=== PATIENT | female | born 1960 | race Caucasian/White ===

== ENCOUNTER 2021-05-25 14:49 | Inpatient (IN) | payer SELFPAY ==
[~2021-05-25] VITALS: Ht 162.6 cm; Wt 58.9 kg
[2021-05-25] MEDS ORDERED: ONDANSETRON PF 4 MG/2 ML VIAL. IVP ONE (15:00)
[2021-05-25] MEDS ORDERED: IV NORMAL SALINE 250ML 500 ML IV ONE (15:00)
[2021-05-25] MEDS ORDERED: MORPHINE SULFATE 2 MG/ML INJ. IVP ONE ×2 (15:00→15:45)
[2021-05-25 15:26] LABS: BASO # 0.1 x10^3/uL (0.0-0.2); BASO % 1 % (0-3); EOS # 0.3 x10^3/uL (0.0-0.7); EOS % 4 % (0-3); HEMATOCRIT 27.7 % (36.0-47.0); HEMOGLOBIN 8.5 g/dL (12.0-15.5); LYMPH # 2.6 x10^3/uL (1.0-4.8); LYMPH % 34 % (24-48); MEAN CORPUSCULAR HEMOGLOBIN 21 pg (25-35); MEAN CORPUSCULAR HGB CONC 31 g/dL (31-37); MEAN CORPUSCULAR VOLUME 69 fL (79-100); MONO # 0.5 x10^3/uL (0.0-1.1); MONO % 7 % (0-9); NEUT # 4.1 x10^3/uL (1.8-7.7); NEUT % 55 % (31-73); PLATELET COUNT 475 x10^3/uL (140-400); RED BLOOD COUNT 4.01 x10^6/uL (3.50-5.40); RED CELL DISTRIBUTION WIDTH 19.7 % (11.5-14.5); WHITE BLOOD COUNT 7.5 x10^3/uL (4.0-11.0)
[2021-05-25] MEDS ORDERED: IOHEXOL 300 MG/ML 100ML VIAL. IV ONE (15:30)
[2021-05-25 15:34] LABS: CALCIUM 9.1 mg/dL (8.5-10.1); GFR 56.7; POTASSIUM 4.3 mmol/L (3.5-5.1)
[2021-05-25 15:38] LABS: CLARITY,URINE CLEAR; COLOR,URINE YELLOW
[2021-05-25 15:39] LABS: BILIRUBIN,URINE NEGATIVE (NEG)
[2021-05-25 15:40] LABS: ALBUMIN 3.6 g/dL (3.4-5.0); ALBUMIN/GLOBULIN RATIO 0.9 (1.0-1.7); MAGNESIUM 2.1 mg/dL (1.8-2.4); TOTAL BILIRUBIN 0.1 mg/dL (0.2-1.0); TOTAL PROTEIN 7.6 g/dL (6.4-8.2)
[2021-05-25 15:40] LABS: BACTERIA,URINE FEW /HPF (0-FEW); NITRITE,URINE NEGATIVE (NEG); PROTEIN,URINE TRACE mg/dL (NEG-TRACE); RBC,URINE OCC /HPF (0-2); UROBILINOGEN,URINE 0.2 mg/dL (0.2 mg/dL)
[2021-05-25 15:41] LABS: HYALINE CASTS, URINE FEW /HPF
[2021-05-25 15:45] LABS: INFLUENZA A PATIENT NEGATIVE (NEGATIVE); INFLUENZA B PATIENT NEGATIVE (NEGATIVE)
[2021-05-25] MEDS ORDERED: CONTRAST GIVEN. MC PRN (15:45)
[2021-05-25] MEDS ORDERED: KETOROLAC 15 MG/ML VIAL. IM ONE (16:00)
[2021-05-25] MEDS ORDERED: ORPHENADRINE CITRATE 60 MG/2 ML VIAL. IM ONE (16:00)
--- NOTE | 2021-05-25 16:23 | RAD ---
CT OF THE ABDOMEN AND PELVIS WITH IV CONTRAST. History: Reason: back pain Comparison:None. Procedure: Contiguous axial images of the abdomen and pelvis were performed after the administration of 60 cc o f Omnipaque 300 IV contrast. Oral contrast: No. Findings: There is grade 2 anterolisthesis of L4 on L5 and L5 on S1. There is mild loss of stature of the L2 an d L3 vertebral bodies due to impaction of the superior endplates. The appendix is not well seen but appears normal. The gallbladder appears normal. The rectal fault is distended with air and stool. Liver: Unremarkable Spleen: Unremarkable Pancreas: Unremarkable Adrenal Glands: Unremarkable Kidneys: Small cyst on the left There is no mass or lymphadenopathy. There is no free air. There is no free fluid. The urinary bladder appears normal. Impression: 1. L2 and L3 vertebral compression fractures of uncertain age. 2. Grade 2 anterolisthesis of L4 on L5 and L5 on S1. 3. The rectal vault is distended with air and stool however the remaining colon appears normal. End Impression PQRS Compliance Statement: One or more of the following individualized dose reduction techniques were utilized for this examinat ion: 1. Automated exposure control 2. Adjustment of the mA and/or kV according to patient size 3. Use of iterative reconstruction technique Electronically signed by: Robinson Huizar III, MD (05/25/2021 4:20 PM) [facility]
[2021-05-25] MEDS ORDERED: KETOROLAC 15 MG/ML VIAL. IVP ONE (16:30)
--- NOTE | 2021-05-25 17:25 | PHYS DOC ---
Past Medical History Additional Past Medical Histor: LOWER BACK PAIN Past Surgical History: No Surgical History Smoking Status: Current Every Day Smoker Alcohol Use: Heavy Additional Information: DAILY 2 CANS [place] Adult General Chief Complaint Chief Complaint: ALTERED MENTAL STATUS HPI HPI Patient is a 60 year old female who presents with back pain. Pain has been present all day. Patient is extremely uncomfortable and comes in by ambulance. She denies any recent fall or injury. She has had problems with her back off and on in the past. She describes as a sharp pain in the center of her spine as well as in the right and left paraspinal musculature of the lower spine, no numbness or weakness in the legs though she does have some tingling. No fever, no definitive bladder incontinence, no bowel incontinence, chest pain or shortness of breath. There was some question as to whether or not she had an episode of bladder incontinence at home earlier in the day. Review of Systems Review of Systems Constitutional: Denies fever Eyes: Denies change in visual acuity or eye pain HENT: Denies sore throat Respiratory: Denies shortness of breath Cardiovascular: Denies chest pain GI: Denies abd pain : Denies dysuria Musculoskeletal: Denies back or extremity injury Integument: Denies rash or skin lesions Neurologic: Denies headache, focal weakness or sensory changes All other systems were reviewed and found to be within normal limits, except as documented in this note. Current Medications Current Medications Current Medications Medications (Trade) Dose Ordered Sig/Rony Start Time Stop Time Status Last Admin Dose Admin Info (CONTRAST GIVEN -- Rx MONITORING) 1 each PRN DAILY PRN 05/25/21 15:45 05/27/21 15:44 Iohexol (Omnipaque 300 Mg/ml) 75 ml 1X ONCE 05/25/21 15:30 05/25/21 15:34 DC 05/25/21 15:30 60 ML Ketorolac Tromethamine (Toradol 15mg Vial) 15 mg 1X ONCE 05/25/21 16:30 05/25/21 16:31 DC Morphine Sulfate (Morphine Sulfate) 2 mg 1X ONCE 05/25/21 15:45 05/25/21 15:46 DC 05/25/21 15:40 2 MG Ondansetron HCl (Zofran) 4 mg 1X ONCE 05/25/21 15:00 05/25/21 15:02 DC 05/25/21 15:10 4 MG Orphenadrine Citrate (Norflex) 60 mg 1X ONCE 05/25/21 16:00 05/25/21 16:01 DC 05/25/21 16:21 60 MG Sodium Chloride 500 ml @ 250 mls/hr 1X ONCE 05/25/21 15:00 05/25/21 16:59 DC 05/25/21 15:00 250 MLS/HR Allergies Allergies Allergies Coded Allergies Type Severity Reaction Last Updated Verified No Known Drug Allergies 05/25/21 No Physical Exam Physical Exam Constitutional: Well developed, well nourished, no acute distress, non-toxic appearance. HENT: Normocephalic, atraumatic, bilateral external ears normal, mucosa moist, nose normal. Eyes: EOMI, conjunctiva normal, no discharge. Neck: Normal range of motion, supple, no stridor, no meningeal signs. Cardiovascular: Regular rate and rhythm Lungs & Thorax: Bilateral breath sounds clear to auscultation Abdomen: Soft, no tenderness or obvious masses Skin: Warm, dry, no erythema, no rash. Extremities: No tenderness, no cyanosis, no clubbing, ROM intact, no edema. Back: Patient has quite a bit of tenderness present over the entire lumbar spine both midline and the paraspinal musculature bilaterally. No external evidence of trauma, no erythema or swelling. Neurologic: Alert and oriented, normal motor function, normal sensory function, no focal deficits noted. Psychologic: Affect normal, judgement normal, mood normal. Current Patient Data Vital Signs Vital Signs Date Time Temp Pulse Resp B/P (MAP) Pulse Ox O2 Delivery O2 Flow Rate FiO2 05/25/21 15:10 18 93 05/25/21 14:53 97.5 107 120/75 (90) Room Air 97.5 Lab Values Laboratory Tests Test 05/25/21 14:55 05/25/21 14:56 05/25/21 15:10 05/25/21 15:16 Glucose (Fingerstick) 166 mg/dL (70-99) H White Blood Count 7.5 x10^3/uL (4.0-11.0) Red Blood Count 4.01 x10^6/uL (3.50-5.40) Hemoglobin 8.5 g/dL (12.0-15.5) L Hematocrit 27.7 % (36.0-47.0) L Mean Corpuscular Volume 69 fL (79-100) L Mean Corpuscular Hemoglobin 21 pg (25-35) L Mean Corpuscular Hemoglobin Concent 31 g/dL (31-37) Red Cell Distribution Width 19.7 % (11.5-14.5) H Platelet Count 475 x10^3/uL (140-400) H Neutrophils (%) (Auto) 55 % (31-73) Lymphocytes (%) (Auto) 34 % (24-48) Monocytes (%) (Auto) 7 % (0-9) Eosinophils (%) (Auto) 4 % (0-3) H Basophils (%) (Auto) 1 % (0-3) Neutrophils # (Auto) 4.1 x10^3/uL (1.8-7.7) Lymphocytes # (Auto) 2.6 x10^3/uL (1.0-4.8) Monocytes # (Auto) 0.5 x10^3/uL (0.0-1.1) Eosinophils # (Auto) 0.3 x10^3/uL (0.0-0.7) Basophils # (Auto) 0.1 x10^3/uL (0.0-0.2) Platelet Estimate Pending Sodium Level 140 mmol/L (136-145) Potassium Level 4.3 mmol/L (3.5-5.1) Chloride Level 101 mmol/L (98-107) Carbon Dioxide Level 25 mmol/L (21-32) Anion Gap 14 (6-14) Blood Urea Nitrogen 13 mg/dL (7-20) Creatinine 1.0 mg/dL (0.6-1.0) Estimated GFR (Cockcroft-Gault) 56.7 BUN/Creatinine Ratio 13 (6-20) Glucose Level 153 mg/dL (70-99) H Lactic Acid Level 6.0 mmol/L (0.4-2.0) *H Calcium Level 9.1 mg/dL (8.5-10.1) Magnesium Level 2.1 mg/dL (1.8-2.4) Total Bilirubin 0.1 mg/dL (0.2-1.0) L Aspartate Amino Transferase (AST) 17 U/L (15-37) Alanine Aminotransferase (ALT) 19 U/L (14-59) Alkaline Phosphatase 96 U/L (46-116) Total Protein 7.6 g/dL (6.4-8.2) Albumin 3.6 g/dL (3.4-5.0) Albumin/Globulin Ratio 0.9 (1.0-1.7) L Lipase 90 U/L (73-393) Urine Collection Type U cath Urine Color Yellow Urine Clarity Clear Urine pH 6.0 (<5.0-8.0) Urine Specific [place] >=1.030 (1.000-1.030) Urine Protein Trace mg/dL (NEG-TRACE) Urine Glucose (UA) Negative mg/dL (NEG) Urine Ketones (Stick) Negative mg/dL (NEG) Urine Blood Negative (NEG) Urine Nitrite Negative (NEG) Urine Bilirubin Negative (NEG) Urine Urobilinogen Dipstick 0.2 mg/dL (0.2 mg/dL) Urine Leukocyte Esterase Negative (NEG) Urine RBC Occ /HPF (0-2) Urine WBC 1-4 /HPF (0-4) Urine Squamous Epithelial Cells Mod /LPF Urine Bacteria Few /HPF (0-FEW) Urine Hyaline Casts Few /HPF Urine Mucus Mod /LPF Influenza Type A Antigen Negative (NEGATIVE) Influenza Type B Antigen Negative (NEGATIVE) SARS-CoV-2 Antigen (Rapid) Negative (NEGATIVE) Laboratory Tests 05/25/21 14:56 Laboratory Tests 05/25/21 14:56 EKG EKG [] Radiology/Procedures Radiology/Procedures [] Impressions: PATIENT: RAUL COLLINSNACCOUNT: [id number]#: [id number] : 1960 LOCATION: ER AGE: 60 SEX: F EXAM STATUS: PRE ER ORD. PHYSICIAN: UTE GAY MD REASON: back pain PROCEDURE: CT ABD PELV W/ IV CONTRST ONLY CT OF THE ABDOMEN AND PELVIS WITH IV CONTRAST. History: Reason: back pain Comparison:None. Procedure: Contiguous axial images of the abdomen and pelvis were performed after the administration of 60 cc of Omnipaque 300 IV contrast. Oral contrast: No. Findings: There is grade 2 anterolisthesis of L4 on L5 and L5 on S1. There is mild loss of stature of the L2 and L3 vertebral bodies due to impaction of the superior endplates. The appendix is not well seen but appears normal. The gallbladder appears normal. The rectal fault is distended with air and stool. Liver: Unremarkable Spleen: Unremarkable Pancreas: Unremarkable Adrenal Glands: Unremarkable Kidneys: Small cyst on the left There is no mass or lymphadenopathy. There is no free air. There is no free fluid. The urinary bladder appears normal. Impression: 1. L2 and L3 vertebral compression fractures of uncertain age. 2. Grade 2 anterolisthesis of L4 on L5 and L5 on S1. 3. The rectal vault is distended with air and stool however the remaining colon appears normal. End Impression PQRS Compliance Statement: One or more of the following individualized dose reduction techniques were utilized for this examination: 1. Automated exposure control 2. Adjustment of the mA and/or kV according to patient size 3. Use of iterative reconstruction technique Electronically signed by: Clara Greenfield III, MD (05/25/2021 4:20 PM) [facility] DICTATED and SIGNED BY: CLARA GREENFIELD III, MD DATE: 05/25/21 [id number] 0 Course & Med Decision Making Course & Med Decision Making Pertinent Labs and Imaging studies reviewed. (See chart for details) [] This is a 60-year-old female who presents with severe back pain. CT of the abdomen and pelvis with reconstruction of the lumbar spine demonstrates a fracture of either the L2 or L3 vertebrae which is indeterminate age, compression fracture. She also has anterolisthesis of L4 on L5 and less p ronounced at L5-S1. Do not have any old imaging studies to compare to. On lab work patient's lactic acid is 6.0 and hemoglobin is 8.5. We will keep her in the hospital for further pain management and work-up as indicated, at this time she is in stable condition. Dragon Disclaimer Dragon Disclaimer This electronic medical record was generated, in whole or in part, using a voice recognition dictation system. Departure Departure Impression: Primary Impression: Intractable back pain Additional Impressions: Lactic acidosis Anemia Disposition: ADMITTED INPATIENT Condition: STABLE Problem Qualifiers UTE GAY MD May 25, 2021 17:25
[2021-05-25] MEDS ORDERED: ONDANSETRON PF 4 MG/2 ML VIAL. IVP PRN ×2 (17:30→20:30)
[2021-05-25] MEDS: fentaNYL PF VIAL 100 MCG/2 ML VIAL IVP PRN ×3 (19:08→23:05)
--- NOTE | 2021-05-25 20:09 | RAD ---
Exam: CT head INDICATION: Seizure TECHNIQUE: Sequential axial images through the head were obtained without the administration of IV co ntrast. Exposure: One or more of the following in the visualized dose reduction techniques were utilized for this examination: 1. Automated exposure control 2. Adjustment of the MA and/or KV according to patient size 3. Use of iterative of reconstructive technique Comparisons: None FINDINGS: No focal parenchymal lesion or hemorrhage is identified. There is no midline shift or sulcal effaceme nt. Mild patchy hypodensity in the periventricular white matter. No acute vascular territory infarction i s identified. Restrepo-white distinction is preserved. The ventricular system is within normal limits without compression hydrocephalus. The basal cisterns are well maintained. The visualized portions of the paranasal sinuses and mastoid air cells are well-pneumatized. No acute fractures. IMPRESSION: Mild small vessel ischemic change, technically age indeterminate without recent prior imaging. Electronically signed by: Rhiannon Bañuelos MD (05/25/2021 8:06 PM) [facility]
[2021-05-25 20:16] LABS: ANISOCYTOSIS SLIGHT; HYPOCHROMIA MOD; MICROCYTOSIS MOD; PLT ESTIMATE INCREASED (ADEQUATE); POLYCHROMASIA SLIGHT
[2021-05-25 20:17] LABS: TARGET CELLS OCC; TEAR DROP CELLS OCC
--- NOTE | 2021-05-25 20:27 | PDOC1 ---
History and Physical Date of Service: DOS: DATE: 05/25/21 TIME: 20:20 Chief Complaint: Chief Complain: Back pain History of Present Illness: HPI: Patient is a 60-year-old female presented with 1 day history of back pain. Says the pain was present when she awoke this morning and has not had any relief. Require transportation here by ambulance due to the amount of pain. No recent falls or trauma. Describes the pain in the mid lumbar section of her spine along with associated muscles. Denies any numbness in lower extremities. Denies any bowel or bladder incontinence however possibly some reported per emergency room. Past Medical/Surgical History: PMH/PSH: Additional Past Medical Histor: LOWER BACK PAIN Smoking Status: Current Every Day Smoker Alcohol Use: Heavy Additional Information: DAILY 2 CANS [place] Allergies: Allergies: Coded Allergies: No Known Drug Allergies (Unverified , 05/25/21) Family History: Family History: HTN Current Medications: Current Medications Current Medications Ondansetron HCl (Zofran) 4 mg 1X ONCE IVP Last administered on 05/25/21at 15:10; Start 05/25/21 at 15:00; Stop 05/25/21 at 15:02; Status DC Morphine Sulfate (Morphine Sulfate) 2 mg 1X ONCE IVP Last administered on 05/25/21at 15:10; Start 05/25/21 at 15:00; Stop 05/25/21 at 15:02; Status DC Sodium Chloride 500 ml @ 250 mls/hr 1X ONCE IV Last administered on 05/25/21at 15:00; Start 05/25/21 at 15:00; Stop 05/25/21 at 16:59; Status DC Iohexol (Omnipaque 300 Mg/ml) 75 ml 1X ONCE IV Last administered on 05/25/21at 15:30; Start 05/25/21 at 15:30; Stop 05/25/21 at 15:34; Status DC Morphine Sulfate (Morphine Sulfate) 2 mg 1X ONCE IVP Last administered on 05/25/21at 15:40; Start 05/25/21 at 15:45; Stop 05/25/21 at 15:46; Status DC Info (CONTRAST GIVEN -- Rx MONITORING) 1 each PRN DAILY PRN MC SEE COMMENTS; Start 05/25/21 at 15:45; Stop 05/27/21 at 15:44 Orphenadrine Citrate (Norflex) 60 mg 1X ONCE IM Last administered on 05/25/21at 16:21; Start 05/25/21 at 16:00; Stop 05/25/21 at 16:01; Status DC Ketorolac Tromethamine (Toradol 15mg Vial) 15 mg 1X ONCE IM Last administered on 05/25/21at 16:00; Start 05/25/21 at 16:00; Stop 05/25/21 at 16:20; Status DC Ketorolac Tromethamine (Toradol 15mg Vial) 15 mg 1X ONCE IVP ; Start 05/25/21 at 16:30; Stop 05/25/21 at 16:31; Status DC Ondansetron HCl (Zofran) 4 mg PRN Q8HRS PRN IVP NAUSEA/VOMITING Last administered on 05/25/21at 20:07; Start 05/25/21 at 17:30; Stop 05/26/21 at 17:29 Morphine Sulfate (Morphine Sulfate) 2 mg PRN Q2HR PRN IVP PAIN; Start 05/25/21 at 17:30; Stop 05/26/21 at 17:29 Fentanyl Citrate (Fentanyl 2ml Vial) 75 mcg PRN Q2HR PRN IVP PAIN Last administered on 05/25/21at 20:05; Start 05/25/21 at 18:45 ROS: Review of Systems Review of System Unless noted in HPI 14 point review of systems was negative Physical Exam: Vital Signs: Vital Signs Date Time Temp Pulse Resp B/P (MAP) Pulse Ox O2 Delivery O2 Flow Rate FiO2 05/25/21 20:05 16 98 2.0 05/25/21 18:07 104 160/82 (108) Room Air 05/25/21 14:53 97.5 97.5 Physcial Exam: GEN: Distress due to pain alert and oriented HEENT: Normal cephalic, atraumatic, external auditory canals are patent EYES: Extraocular muscles are intact, pupil are equally round and reactive to light and accommodation MUSCULOSKELETAL: Well developed , well nourishe ENDOCRINE: No thyromegaly was palpated LYMPHATICS: No cervical chain or axillary nodes were noted HEMATOPOIETIC: No bruising NECK: Supple, no JVD, no thyromegaly was noted LUNGS: Clear to auscultation in all lung boyle without rhonchi or wheezing HEART: RRR, S1, S2 present. Peripheral pulses intact, no obvious murmurs noted ABDOMEN: Soft, nontender. Positive bowel sounds, no organomegaly, normal bowel sounds EXTREMITIES: Without clubbing, cyanosis, or edema. Pedal pulses intact. Negative Homans sign NEUROLOGIC: Range of motion limited by pain PSYCHIATRIC: Normal affect, normal mood. Stable SKIN: No ulcerations or rashes, good skin turgor, no jaundice VASCULAR: Good capillary refill, neurovascular bundle appears to be intact Labs: Labs: Laboratory Tests Test 05/25/21 14:55 05/25/21 14:56 05/25/21 15:10 05/25/21 15:16 Glucose (Fingerstick) 166 mg/dL (70-99) White Blood Count 7.5 x10^3/uL (4.0-11.0) Red Blood Count 4.01 x10^6/uL (3.50-5.40) Hemoglobin 8.5 g/dL (12.0-15.5) Hematocrit 27.7 % (36.0-47.0) Mean Corpuscular Volume 69 fL (79-100) Mean Corpuscular Hemoglobin 21 pg (25-35) Mean Corpuscular Hemoglobin Concent 31 g/dL (31-37) Red Cell Distribution Width 19.7 % (11.5-14.5) Platelet Count 475 x10^3/uL (140-400) Neutrophils (%) (Auto) 55 % (31-73) Lymphocytes (%) (Auto) 34 % (24-48) Monocytes (%) (Auto) 7 % (0-9) Eosinophils (%) (Auto) 4 % (0-3) Basophils (%) (Auto) 1 % (0-3) Neutrophils # (Auto) 4.1 x10^3/uL (1.8-7.7) Lymphocytes # (Auto) 2.6 x10^3/uL (1.0-4.8) Monocytes # (Auto) 0.5 x10^3/uL (0.0-1.1) Eosinophils # (Auto) 0.3 x10^3/uL (0.0-0.7) Basophils # (Auto) 0.1 x10^3/uL (0.0-0.2) Platelet Estimate Increased (ADEQUATE) Polychromasia Slight Hypochromasia Mod Anisocytosis Slight Microcytosis Mod Target Cells Occ Tear Drop Cells Occ Sodium Level 140 mmol/L (136-145) Potassium Level 4.3 mmol/L (3.5-5.1) Chloride Level 101 mmol/L (98-107) Carbon Dioxide Level 25 mmol/L (21-32) Anion Gap 14 (6-14) Blood Urea Nitrogen 13 mg/dL (7-20) Creatinine 1.0 mg/dL (0.6-1.0) Estimated GFR (Cockcroft-Gault) 56.7 BUN/Creatinine Ratio 13 (6-20) Glucose Level 153 mg/dL (70-99) Lactic Acid Level 6.0 mmol/L (0.4-2.0) Calcium Level 9.1 mg/dL (8.5-10.1) Magnesium Level 2.1 mg/dL (1.8-2.4) Total Bilirubin 0.1 mg/dL (0.2-1.0) Aspartate Amino Transf (AST/SGOT) 17 U/L (15-37) Alanine Aminotransferase (ALT/SGPT) 19 U/L (14-59) Alkaline Phosphatase 96 U/L (46-116) Total Protein 7.6 g/dL (6.4-8.2) Albumin 3.6 g/dL (3.4-5.0) Albumin/Globulin Ratio 0.9 (1.0-1.7) Lipase 90 U/L (73-393) Urine Collection Type U cath Urine Color Yellow Urine Clarity Clear Urine pH 6.0 (<5.0-8.0) Urine Specific [place] >=1.030 (1.000-1.030) Urine Protein Trace mg/dL (NEG-TRACE) Urine Glucose (UA) Negative mg/dL (NEG) Urine Ketones (Stick) Negative mg/dL (NEG) Urine Blood Negative (NEG) Urine Nitrite Negative (NEG) Urine Bilirubin Negative (NEG) Urine Urobilinogen Dipstick 0.2 mg/dL (0.2 mg/dL) Urine Leukocyte Esterase Negative (NEG) Urine RBC Occ /HPF (0-2) Urine WBC 1-4 /HPF (0-4) Urine Squamous Epithelial Cells Mod /LPF Urine Bacteria Few /HPF (0-FEW) Urine Hyaline Casts Few /HPF Urine Mucus Mod /LPF Influenza Type A Antigen Negative (NEGATIVE) Influenza Type B Antigen Negative (NEGATIVE) SARS-CoV-2 Antigen (Rapid) Negative (NEGATIVE) Laboratory Tests Test 05/25/21 14:55 05/25/21 14:56 05/25/21 15:10 05/25/21 15:16 Glucose (Fingerstick) 166 mg/dL (70-99) White Blood Count 7.5 x10^3/uL (4.0-11.0) Red Blood Count 4.01 x10^6/uL (3.50-5.40) Hemoglobin 8.5 g/dL (12.0-15.5) Hematocrit 27.7 % (36.0-47.0) Mean Corpuscular Volume 69 fL (79-100) Mean Corpuscular Hemoglobin 21 pg (25-35) Mean Corpuscular Hemoglobin Concent 31 g/dL (31-37) Red Cell Distribution Width 19.7 % (11.5-14.5) Platelet Count 475 x10^3/uL (140-400) Neutrophils (%) (Auto) 55 % (31-73) Lymphocytes (%) (Auto) 34 % (24-48) Monocytes (%) (Auto) 7 % (0-9) Eosinophils (%) (Auto) 4 % (0-3) Basophils (%) (Auto) 1 % (0-3) Neutrophils # (Auto) 4.1 x10^3/uL (1.8-7.7) Lymphocytes # (Auto) 2.6 x10^3/uL (1.0-4.8) Monocytes # (Auto) 0.5 x10^3/uL (0.0-1.1) Eosinophils # (Auto) 0.3 x10^3/uL (0.0-0.7) Basophils # (Auto) 0.1 x10^3/uL (0.0-0.2) Platelet Estimate Increased (ADEQUATE) Polychromasia Slight Hypochromasia Mod Anisocytosis Slight Microcytosis Mod Target Cells Occ Tear Drop Cells Occ Sodium Level 140 mmol/L (136-145) Potassium Level 4.3 mmol/L (3.5-5.1) Chloride Level 101 mmol/L (98-107) Carbon Dioxide Level 25 mmol/L (21-32) Anion Gap 14 (6-14) Blood Urea Nitrogen 13 mg/dL (7-20) Creatinine 1.0 mg/dL (0.6-1.0) Estimated GFR (Cockcroft-Gault) 56.7 BUN/Creatinine Ratio 13 (6-20) Glucose Level 153 mg/dL (70-99) Lactic Acid Level 6.0 mmol/L (0.4-2.0) Calcium Level 9.1 mg/dL (8.5-10.1) Magnesium Level 2.1 mg/dL (1.8-2.4) Total Bilirubin 0.1 mg/dL (0.2-1.0) Aspartate Amino Transf (AST/SGOT) 17 U/L (15-37) Alanine Aminotransferase (ALT/SGPT) 19 U/L (14-59) Alkaline Phosphatase 96 U/L (46-116) Total Protein 7.6 g/dL (6.4-8.2) Albumin 3.6 g/dL (3.4-5.0) Albumin/Globulin Ratio 0.9 (1.0-1.7) Lipase 90 U/L (73-393) Urine Collection Type U cath Urine Color Yellow Urine Clarity Clear Urine pH 6.0 (<5.0-8.0) Urine Specific [place] >=1.030 (1.000-1.030) Urine Protein Trace mg/dL (NEG-TRACE) Urine Glucose (UA) Negative mg/dL (NEG) Urine Ketones (Stick) Negative mg/dL (NEG) Urine Blood Negative (NEG) Urine Nitrite Negative (NEG) Urine Bilirubin Negative (NEG) Urine Urobilinogen Dipstick 0.2 mg/dL (0.2 mg/dL) Urine Leukocyte Esterase Negative (NEG) Urine RBC Occ /HPF (0-2) Urine WBC 1-4 /HPF (0-4) Urine Squamous Epithelial Cells Mod /LPF Urine Bacteria Few /HPF (0-FEW) Urine Hyaline Casts Few /HPF Urine Mucus Mod /LPF Influenza Type A Antigen Negative (NEGATIVE) Influenza Type B Antigen Negative (NEGATIVE) SARS-CoV-2 Antigen (Rapid) Negative (NEGATIVE) Assessment/Plan Assessment/Plan Intractable back pain. Tobacco use alcohol abuse -1 day history worsening back pain. Requires ambulance transportation due to level of pain; reports ongoing issues with her back but really no specification by her -CT in emergency room showing compression fracture along with anterior listhesis -As needed pain control overnight. Says morphine was not helping emergency room will try fentanyl. As needed Flexeril -Consult to neurosurgery. Consult to PMR -PT OT -11 minutes tobacco cessation counseling -Monitor for any signs of alcohol withdrawal -Regular diet -DVT prophylaxis -Med rec Justifications for Admission Other Justification STEPH DEGROOT MD May 25, 2021 20:27
[2021-05-25 20:30] VITALS: BP 142/91
[2021-05-25] MEDS ORDERED: ACETAMINOPHEN 325 MG TABLET. PO PRN (20:30)
[2021-05-25] MEDS ORDERED: ELECTROLYTE (NON-ICU) PROTOCOL. MC PRN (20:30)
[2021-05-25] MEDS ORDERED: CALCIUM CARBONATE 500 MG TAB.CHEW PO PRN (20:30)
[2021-05-25] MEDS: SENNOSIDES/DOCUSATE 8.6/50MG TABLET. PO SCH (21:50)
[2021-05-25] MEDS: ZOLPIDEM 5 MG TABLET. PO PRN (21:52)
[2021-05-25] MEDS: CYCLOBENZAPRINE 10 MG TABLET. PO PRN (21:59)
[2021-05-25] MEDS: MORPHINE SULFATE 2 MG/ML INJ. IVP PRN (22:08)
[2021-05-25] MEDS: HEPARIN for SUB-Q USE 5,000 UNIT/ML VIAL. SQ SCH (22:08)
[2021-05-25 23:00] VITALS: BP 154/80
[2021-05-26 03:00] VITALS: BP 130/74
[2021-05-26] MEDS: CYCLOBENZAPRINE 10 MG TABLET. PO PRN ×2 (05:51→20:12)
[2021-05-26] MEDS: MORPHINE SULFATE 2 MG/ML INJ. IVP PRN ×2 (05:56→14:23)
[2021-05-26] MEDS: HEPARIN for SUB-Q USE 5,000 UNIT/ML VIAL. SQ SCH ×3 (05:57→21:37)
[2021-05-26 07:15] VITALS: BP 119/71
[2021-05-26] MEDS ORDERED: FLU VACC QUAD 21-22 (6MOS+) PF 0.5 ML SYRINGE. VAX IM ONE (09:00)
[2021-05-26] MEDS: fentaNYL PF VIAL 100 MCG/2 ML VIAL IVP PRN ×2 (09:02→20:16)
[2021-05-26] MEDS: SENNOSIDES/DOCUSATE 8.6/50MG TABLET. PO SCH ×2 (09:06→20:12)
[2021-05-26 11:06] VITALS: BP 122/70
[2021-05-26] MEDS ORDERED: POLYETHYLENE GLYCOL 3350 17 GM PACKET. PO SCH (11:30)
--- NOTE | 2021-05-26 11:54 | NUR ---
SW following. Discussed with RN, pt from home with , room air, regular diet, rapid COVID-19 negative. Pt refusing to get out of bed. MRI ordered. Med Assist following for self pay status. SW will continue to follow.
--- NOTE | 2021-05-26 12:00 | PDOC ---
[employer] PROGRESS NOTE Date of Service DOS: DATE: 05/26/21 TIME: 11:20 Chief Complaint Chief Complaint Intractable back pain L2 and L3 vertebral compression fractures of uncertain age. Grade 2 anterolisthesis of L4 on L5 and L5 on S1. Constipation - rectal vault distended with air and stool however the remaining colon appears normal. Smoker Anemia Lactic acidosis Hyperglycemia History of Present Illness History of Present Illness Ms Simpson is a 60-year-old female presented with 1 day history of back pain. Says the pain was present when she awoke 05/25 in the morning and has not had any relief. Require transportation here by ambulance due to the amount of pain. No recent falls or trauma. Describes the pain in the mid lumbar section of her spine along with associated muscles. Denies any numbness in lower extremities. Denies any bowel or bladder incontinence however possibly some reported per e mergency room. CT reveals L2, L3 compression fractures, constipation and L4-L5 and L5-S1 anterolisthesis. Unable to walk, refused to walk. Denies any falls 05/26: Unable to get up due to pain, circumferential tangential and difficult to redirect during interview. She is okay having MRI of her spine today Vitals/I&O Vitals/I&O: Vital Signs Date Time Temp Pulse Resp B/P (MAP) Pulse Ox O2 Delivery O2 Flow Rate FiO2 05/26/21 11:06 97.5 101 18 122/70 (87) 95 Nasal Cannula 3.0 97.5 I & O 05/25/21 05/25/21 05/26/21 15:00 23:00 07:00 Intake Total 500 ml 300 ml Output Total 200 ml Balance 300 ml 300 ml Labs Labs: Laboratory Tests Test 05/25/21 14:55 05/25/21 14:56 05/25/21 15:10 05/25/21 15:16 Glucose (Fingerstick) 166 mg/dL (70-99) White Blood Count 7.5 x10^3/uL (4.0-11.0) Red Blood Count 4.01 x10^6/uL (3.50-5.40) Hemoglobin 8.5 g/dL (12.0-15.5) Hematocrit 27.7 % (36.0-47.0) Mean Corpuscular Volume 69 fL (79-100) Mean Corpuscular Hemoglobin 21 pg (25-35) Mean Corpuscular Hemoglobin Concent 31 g/dL (31-37) Red Cell Distribution Width 19.7 % (11.5-14.5) Platelet Count 475 x10^3/uL (140-400) Neutrophils (%) (Auto) 55 % (31-73) Lymphocytes (%) (Auto) 34 % (24-48) Monocytes (%) (Auto) 7 % (0-9) Eosinophils (%) (Auto) 4 % (0-3) Basophils (%) (Auto) 1 % (0-3) Neutrophils # (Auto) 4.1 x10^3/uL (1.8-7.7) Lymphocytes # (Auto) 2.6 x10^3/uL (1.0-4.8) Monocytes # (Auto) 0.5 x10^3/uL (0.0-1.1) Eosinophils # (Auto) 0.3 x10^3/uL (0.0-0.7) Basophils # (Auto) 0.1 x10^3/uL (0.0-0.2) Platelet Estimate Increased (ADEQUATE) Polychromasia Slight Hypochromasia Mod Anisocytosis Slight Microcytosis Mod Target Cells Occ Tear Drop Cells Occ Sodium Level 140 mmol/L (136-145) Potassium Level 4.3 mmol/L (3.5-5.1) Chloride Level 101 mmol/L (98-107) Carbon Dioxide Level 25 mmol/L (21-32) Anion Gap 14 (6-14) Blood Urea Nitrogen 13 mg/dL (7-20) Creatinine 1.0 mg/dL (0.6-1.0) Estimated GFR (Cockcroft-Gault) 56.7 BUN/Creatinine Ratio 13 (6-20) Glucose Level 153 mg/dL (70-99) Lactic Acid Level 6.0 mmol/L (0.4-2.0) Calcium Level 9.1 mg/dL (8.5-10.1) Magnesium Level 2.1 mg/dL (1.8-2.4) Total Bilirubin 0.1 mg/dL (0.2-1.0) Aspartate Amino Transf (AST/SGOT) 17 U/L (15-37) Alanine Aminotransferase (ALT/SGPT) 19 U/L (14-59) Alkaline Phosphatase 96 U/L (46-116) Total Protein 7.6 g/dL (6.4-8.2) Albumin 3.6 g/dL (3.4-5.0) Albumin/Globulin Ratio 0.9 (1.0-1.7) Lipase 90 U/L (73-393) Urine Collection Type U cath Urine Color Yellow Urine Clarity Clear Urine pH 6.0 (<5.0-8.0) Urine Specific [place] >=1.030 (1.000-1.030) Urine Protein Trace mg/dL (NEG-TRACE) Urine Glucose (UA) Negative mg/dL (NEG) Urine Ketones (Stick) Negative mg/dL (NEG) Urine Blood Negative (NEG) Urine Nitrite Negative (NEG) Urine Bilirubin Negative (NEG) Urine Urobilinogen Dipstick 0.2 mg/dL (0.2 mg/dL) Urine Leukocyte Esterase Negative (NEG) Urine RBC Occ /HPF (0-2) Urine WBC 1-4 /HPF (0-4) Urine Squamous Epithelial Cells Mod /LPF Urine Bacteria Few /HPF (0-FEW) Urine Hyaline Casts Few /HPF Urine Mucus Mod /LPF Influenza Type A Antigen Negative (NEGATIVE) Influenza Type B Antigen Negative (NEGATIVE) SARS-CoV-2 Antigen (Rapid) Negative (NEGATIVE) Test 05/25/21 22:40 Lactic Acid Level 1.4 mmol/L (0.4-2.0) Assessment and Plan Assessmemt and Plan Problems Medical Problems: (1) Anemia Status: Acute (2) Intractable back pain Status: Acute (3) Lactic acidosis Status: Acute Comment Review of Relevant I have reviewed the following items addison (where applicable) has been applied. Medications: Current Medications Medications (Trade) Dose Ordered Sig/Rony Route PRN Reason Start Time Stop Time Status Last Admin Dose Admin Ondansetron HCl (Zofran) 4 mg 1X ONCE IVP 05/25/21 15:00 05/25/21 15:02 DC 05/25/21 15:10 Morphine Sulfate (Morphine Sulfate) 2 mg 1X ONCE IVP 05/25/21 15:00 05/25/21 15:02 DC 05/25/21 15:10 Sodium Chloride 500 ml @ 250 mls/hr 1X ONCE IV 05/25/21 15:00 05/25/21 16:59 DC 05/25/21 15:00 Iohexol (Omnipaque 300 Mg/ml) 75 ml 1X ONCE IV 05/25/21 15:30 05/25/21 15:34 DC 05/25/21 15:30 Morphine Sulfate (Morphine Sulfate) 2 mg 1X ONCE IVP 05/25/21 15:45 05/25/21 15:46 DC 05/25/21 15:40 Orphenadrine Citrate (Norflex) 60 mg 1X ONCE IM 05/25/21 16:00 05/25/21 16:01 DC 05/25/21 16:21 Ketorolac Tromethamine (Toradol 15mg Vial) 15 mg 1X ONCE IM 05/25/21 16:00 05/25/21 16:20 DC 05/25/21 16:00 Ondansetron HCl (Zofran) 4 mg PRN Q8HRS PRN IVP NAUSEA/VOMITING 05/25/21 17:30 05/26/21 17:29 05/25/21 20:07 Morphine Sulfate (Morphine Sulfate) 2 mg PRN Q2HR PRN IVP PAIN 05/25/21 17:30 05/26/21 17:29 05/26/21 05:56 Fentanyl Citrate (Fentanyl 2ml Vial) 75 mcg PRN Q2HR PRN IVP PAIN 05/25/21 18:45 05/26/21 09:02 Zolpidem Tartrate (Ambien) 5 mg PRN QHS PRN PO INSOMNIA, MAY REPEAT IN 1HR 05/25/21 20:30 05/25/21 21:52 Senna/Docusate Sodium (Senna Plus) 1 tab BID PO 05/25/21 21:00 05/26/21 09:06 Heparin Sodium (Porcine) (Heparin Sodium) 5,000 unit Q8HRS SQ 05/25/21 22:00 05/26/21 05:57 Cyclobenzaprine HCl (Flexeril) 10 mg PRN Q6HRS PRN PO MUSCLE SPASMS 05/25/21 20:30 05/26/21 05:51 Justifications for Admission Other Justification STEPH CABALLERO MD May 26, 2021 12:00
[2021-05-26 15:14] VITALS: BP_SYST 137; BP_SYST 92; BP_DIAS 58; BP_DIAS 79
[2021-05-26] MEDS ORDERED: SUCR1TAB PO (18:31)
[2021-05-26] MEDS ORDERED: GABA300C18 PO (18:31)
[2021-05-26] MEDS ORDERED: ESZO3TAB28 PO (18:31)
[2021-05-26] MEDS ORDERED: CYCL10TA19 PO (18:31)
[2021-05-26 19:00] VITALS: BP 137/71
[2021-05-26] MEDS ORDERED: cloNIDine HCL 0.1 MG TABLET PO PRN (19:00)
[2021-05-26] MEDS: ZOLPIDEM 5 MG TABLET. PO PRN (20:12)
[2021-05-26] MEDS ORDERED: GABAPENTIN 300 MG CAPSULE. PO SCH (21:00)
[2021-05-26 21:27] LABS: BARBITURATES NEG (NEG); BENZODIAZEPINES NEG (NEG); CANNABINOIDS NEG (NEG); COCAINE POS (NEG); METHADONE NEG (NEG); OPIATES POS (NEG); PHENCYCLIDINE NEG (NEG)
[2021-05-26 21:29] LABS: AMPHETAMINE/METHAMPHETAMINE NEG (NEG)
[2021-05-26 23:00] VITALS: BP 145/86
[2021-05-27 03:00] VITALS: BP 142/75
[2021-05-27 04:57] LABS: BASO # 0.1 x10^3/uL (0.0-0.2); BASO % 1 % (0-3); EOS # 0.1 x10^3/uL (0.0-0.7); EOS % 2 % (0-3); HEMOGLOBIN 8.4 g/dL (12.0-15.5); LYMPH # 1.5 x10^3/uL (1.0-4.8); LYMPH % 21 % (24-48); MEAN CORPUSCULAR HEMOGLOBIN 21 pg (25-35); MEAN CORPUSCULAR HGB CONC 31 g/dL (31-37); MEAN CORPUSCULAR VOLUME 67 fL (79-100); MONO # 0.3 x10^3/uL (0.0-1.1); MONO % 4 % (0-9); NEUT # 4.9 x10^3/uL (1.8-7.7); NEUT % 72 % (31-73); PLATELET COUNT 385 x10^3/uL (140-400); RED BLOOD COUNT 4.04 x10^6/uL (3.50-5.40); RED CELL DISTRIBUTION WIDTH 18.8 % (11.5-14.5); WHITE BLOOD COUNT 6.8 x10^3/uL (4.0-11.0)
[2021-05-27 05:37] LABS: ALBUMIN 3.5 g/dL (3.4-5.0); ALBUMIN/GLOBULIN RATIO 0.8 (1.0-1.7); CALCIUM 8.6 mg/dL (8.5-10.1); CREATININE 0.7 mg/dL (0.6-1.0); GFR 85.6; POTASSIUM 3.3 mmol/L (3.5-5.1); TOTAL BILIRUBIN 0.3 mg/dL (0.2-1.0); TOTAL PROTEIN 7.9 g/dL (6.4-8.2)
[2021-05-27] MEDS: HEPARIN for SUB-Q USE 5,000 UNIT/ML VIAL. SQ SCH (06:03)
[2021-05-27 07:00] VITALS: BP 148/95
--- NOTE | 2021-05-27 08:35 | NUR ---
Upon entering patient room, patient was getting dressed and stated her discharged her. Advised patient this nurse was going to get her AMA form. Upon returning to the room to get AMA form signed patient was already gone. 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
[2021-05-27] MEDS ORDERED: MULTIVITAMIN with MINERAL TABLET. PO SCH (09:00)
[2021-05-27] MEDS ORDERED: THIAMINE 100 MG TABLET. PO SCH (09:00)
[2021-05-27] MEDS ORDERED: FOLIC ACID 1 MG TABLET. PO SCH (09:00)
--- NOTE | 2021-05-27 09:31 | PDOC3 ---
Discharge Summary Visit Information Date of Admission: May 25, 2021 Date of Discharge: May 27, 2021 Admitting Diagnosis: Intractable back pain Final Diagnosis Problems Medical Problems: (1) Anemia Status: Acute (2) Intractable back pain Status: Acute (3) Lactic acidosis Status: Acute Brief Hospital Course Allergies Allergies Coded Allergies Type Severity Reaction Last Updated Verified No Known Drug Allergies 05/25/21 No Vital Signs Vital Signs Date Time Temp Pulse Resp B/P (MAP) Pulse Ox O2 Delivery O2 Flow Rate FiO2 05/27/21 07:00 98.1 116 18 148/95 (112) 97 Room Air 98.1 05/26/21 15:14 3.0 Lab Results Laboratory Tests Test 05/25/21 14:55 05/25/21 14:56 05/25/21 15:10 05/25/21 15:16 Glucose (Fingerstick) 166 mg/dL (70-99) White Blood Count 7.5 x10^3/uL (4.0-11.0) Red Blood Count 4.01 x10^6/uL (3.50-5.40) Hemoglobin 8.5 g/dL (12.0-15.5) Hematocrit 27.7 % (36.0-47.0) Mean Corpuscular Volume 69 fL (79-100) Mean Corpuscular Hemoglobin 21 pg (25-35) Mean Corpuscular Hemoglobin Concent 31 g/dL (31-37) Red Cell Distribution Width 19.7 % (11.5-14.5) Platelet Count 475 x10^3/uL (140-400) Neutrophils (%) (Auto) 55 % (31-73) Lymphocytes (%) (Auto) 34 % (24-48) Monocytes (%) (Auto) 7 % (0-9) Eosinophils (%) (Auto) 4 % (0-3) Basophils (%) (Auto) 1 % (0-3) Neutrophils # (Auto) 4.1 x10^3/uL (1.8-7.7) Lymphocytes # (Auto) 2.6 x10^3/uL (1.0-4.8) Monocytes # (Auto) 0.5 x10^3/uL (0.0-1.1) Eosinophils # (Auto) 0.3 x10^3/uL (0.0-0.7) Basophils # (Auto) 0.1 x10^3/uL (0.0-0.2) Platelet Estimate Increased (ADEQUATE) Polychromasia Slight Hypochromasia Mod Anisocytosis Slight Microcytosis Mod Target Cells Occ Tear Drop Cells Occ Sodium Level 140 mmol/L (136-145) Potassium Level 4.3 mmol/L (3.5-5.1) Chloride Level 101 mmol/L (98-107) Carbon Dioxide Level 25 mmol/L (21-32) Anion Gap 14 (6-14) Blood Urea Nitrogen 13 mg/dL (7-20) Creatinine 1.0 mg/dL (0.6-1.0) Estimated GFR (Cockcroft-Gault) 56.7 BUN/Creatinine Ratio 13 (6-20) Glucose Level 153 mg/dL (70-99) Lactic Acid Level 6.0 mmol/L (0.4-2.0) Calcium Level 9.1 mg/dL (8.5-10.1) Magnesium Level 2.1 mg/dL (1.8-2.4) Iron Level 12 ug/dL (50-170) Total Iron Binding Capacity 442 ug/dL (250-450) Iron Saturation 3 % (15-34) Total Bilirubin 0.1 mg/dL (0.2-1.0) Aspartate Amino Transf (AST/SGOT) 17 U/L (15-37) Alanine Aminotransferase (ALT/SGPT) 19 U/L (14-59) Alkaline Phosphatase 96 U/L (46-116) Total Protein 7.6 g/dL (6.4-8.2) Albumin 3.6 g/dL (3.4-5.0) Albumin/Globulin Ratio 0.9 (1.0-1.7) Lipase 90 U/L (73-393) Vitamin B12 Level 450 pg/mL (247-911) Thyroid Stimulating Hormone (TSH) 2.423 uIU/mL (0.358-3.74) Urine Collection Type U cath Urine Color Yellow Urine Clarity Clear Urine pH 6.0 (<5.0-8.0) Urine Specific [place] >=1.030 (1.000-1.030) Urine Protein Trace mg/dL (NEG-TRACE) Urine Glucose (UA) Negative mg/dL (NEG) Urine Ketones (Stick) Negative mg/dL (NEG) Urine Blood Negative (NEG) Urine Nitrite Negative (NEG) Urine Bilirubin Negative (NEG) Urine Urobilinogen Dipstick 0.2 mg/dL (0.2 mg/dL) Urine Leukocyte Esterase Negative (NEG) Urine RBC Occ /HPF (0-2) Urine WBC 1-4 /HPF (0-4) Urine Squamous Epithelial Cells Mod /LPF Urine Bacteria Few /HPF (0-FEW) Urine Hyaline Casts Few /HPF Urine Mucus Mod /LPF Influenza Type A Antigen Negative (NEGATIVE) Influenza Type B Antigen Negative (NEGATIVE) SARS-CoV-2 Antigen (Rapid) Negative (NEGATIVE) Test 05/25/21 22:40 05/26/21 21:00 05/27/21 04:05 Lactic Acid Level 1.4 mmol/L (0.4-2.0) Urine Opiates Screen Pos (NEG) Urine Methadone Screen Neg (NEG) Urine Barbiturates Neg (NEG) Urine Phencyclidine Screen Neg (NEG) Urine Amphetamine/Methamphetamine Neg (NEG) Urine Benzodiazepines Screen Neg (NEG) Urine Cocaine Screen Pos (NEG) Urine Cannabinoids Screen Neg (NEG) Urine Ethyl Alcohol Neg (NEG) White Blood Count 6.8 x10^3/uL (4.0-11.0) Red Blood Count 4.04 x10^6/uL (3.50-5.40) Hemoglobin 8.4 g/dL (12.0-15.5) Hematocrit 27.0 % (36.0-47.0) Mean Corpuscular Volume 67 fL (79-100) Mean Corpuscular Hemoglobin 21 pg (25-35) Mean Corpuscular Hemoglobin Concent 31 g/dL (31-37) Red Cell Distribution Width 18.8 % (11.5-14.5) Platelet Count 385 x10^3/uL (140-400) Neutrophils (%) (Auto) 72 % (31-73) Lymphocytes (%) (Auto) 21 % (24-48) Monocytes (%) (Auto) 4 % (0-9) Eosinophils (%) (Auto) 2 % (0-3) Basophils (%) (Auto) 1 % (0-3) Neutrophils # (Auto) 4.9 x10^3/uL (1.8-7.7) Lymphocytes # (Auto) 1.5 x10^3/uL (1.0-4.8) Monocytes # (Auto) 0.3 x10^3/uL (0.0-1.1) Eosinophils # (Auto) 0.1 x10^3/uL (0.0-0.7) Basophils # (Auto) 0.1 x10^3/uL (0.0-0.2) Sodium Level 136 mmol/L (136-145) Potassium Level 3.3 mmol/L (3.5-5.1) Chloride Level 99 mmol/L (98-107) Carbon Dioxide Level 27 mmol/L (21-32) Anion Gap 10 (6-14) Blood Urea Nitrogen 10 mg/dL (7-20) Creatinine 0.7 mg/dL (0.6-1.0) Estimated GFR (Cockcroft-Gault) 85.6 BUN/Creatinine Ratio 14 (6-20) Glucose Level 78 mg/dL (70-99) Calcium Level 8.6 mg/dL (8.5-10.1) Total Bilirubin 0.3 mg/dL (0.2-1.0) Aspartate Amino Transf (AST/SGOT) 21 U/L (15-37) Alanine Aminotransferase (ALT/SGPT) 20 U/L (14-59) Alkaline Phosphatase 112 U/L (46-116) Total Protein 7.9 g/dL (6.4-8.2) Albumin 3.5 g/dL (3.4-5.0) Albumin/Globulin Ratio 0.8 (1.0-1.7) Laboratory Tests Test 05/26/21 21:00 05/27/21 04:05 Urine Opiates Screen Pos (NEG) Urine Methadone Screen Neg (NEG) Urine Barbiturates Neg (NEG) Urine Phencyclidine Screen Neg (NEG) Urine Amphetamine/Methamphetamine Neg (NEG) Urine Benzodiazepines Screen Neg (NEG) Urine Cocaine Screen Pos (NEG) Urine Cannabinoids Screen Neg (NEG) Urine Ethyl Alcohol Neg (NEG) White Blood Count 6.8 x10^3/uL (4.0-11.0) Red Blood Count 4.04 x10^6/uL (3.50-5.40) Hemoglobin 8.4 g/dL (12.0-15.5) Hematocrit 27.0 % (36.0-47.0) Mean Corpuscular Volume 67 fL (79-100) Mean Corpuscular Hemoglobin 21 pg (25-35) Mean Corpuscular Hemoglobin Concent 31 g/dL (31-37) Red Cell Distribution Width 18.8 % (11.5-14.5) Platelet Count 385 x10^3/uL (140-400) Neutrophils (%) (Auto) 72 % (31-73) Lymphocytes (%) (Auto) 21 % (24-48) Monocytes (%) (Auto) 4 % (0-9) Eosinophils (%) (Auto) 2 % (0-3) Basophils (%) (Auto) 1 % (0-3) Neutrophils # (Auto) 4.9 x10^3/uL (1.8-7.7) Lymphocytes # (Auto) 1.5 x10^3/uL (1.0-4.8) Monocytes # (Auto) 0.3 x10^3/uL (0.0-1.1) Eosinophils # (Auto) 0.1 x10^3/uL (0.0-0.7) Basophils # (Auto) 0.1 x10^3/uL (0.0-0.2) Sodium Level 136 mmol/L (136-145) Potassium Level 3.3 mmol/L (3.5-5.1) Chloride Level 99 mmol/L (98-107) Carbon Dioxide Level 27 mmol/L (21-32) Anion Gap 10 (6-14) Blood Urea Nitrogen 10 mg/dL (7-20) Creatinine 0.7 mg/dL (0.6-1.0) Estimated GFR (Cockcroft-Gault) 85.6 BUN/Creatinine Ratio 14 (6-20) Glucose Level 78 mg/dL (70-99) Calcium Level 8.6 mg/dL (8.5-10.1) Total Bilirubin 0.3 mg/dL (0.2-1.0) Aspartate Amino Transf (AST/SGOT) 21 U/L (15-37) Alanine Aminotransferase (ALT/SGPT) 20 U/L (14-59) Alkaline Phosphatase 112 U/L (46-116) Total Protein 7.9 g/dL (6.4-8.2) Albumin 3.5 g/dL (3.4-5.0) Albumin/Globulin Ratio 0.8 (1.0-1.7) Brief Hospital Course Ms Simpson is a 60-year-old female presented with 1 day history of back pain. Says the pain was present when she awoke 05/25 in the morning and has not had any relief. Require transportation here by ambulance due to the amount of pain. No recent falls or trauma. Describes the pain in the mid lumbar section of her s [place] along with associated muscles. Denies any numbness in lower extremities. Denies any bowel or bladder incontinence however possibly some reported per emergency room. CT reveals L2, L3 compression fractures, constipation and L4-L5 and L5-S1 anterolisthesis. Unable to walk, refused to walk. Denies any falls 05/26: Unable to get up due to pain, circumferential tangential and difficult to redirect during interview. She is okay having MRI of her spine today, but then refused. Cocaine positive on UDS. 05/27: Patient has been getting dressed asking to leave. Notified due to her fracture should undergo MRI. She left the hospital AGAINST MEDICAL ADVICE. HEENT: Head normocephalic, atraumatic. NECK: Supple LUNGS: Clear to auscultation. HEART: RRR, S1, S2 present, pulses intact ABDOMEN: Soft, positive bowel sounds. EXTREMITIES: No cyanosis or edema. NEUROLOGIC: Normal speech, normal tone PSYCHIATRIC: Normal affect, normal mood. SKIN: No ulceration. Problem list: Intractable back pain L2 and L3 vertebral compression fractures of uncertain age. Grade 2 anterolisthesis of L4 on L5 and L5 on S1. Constipation - rectal vault distended with air and stool however the remaining colon appears normal. Smoker Anemia Lactic acidosis Hyperglycemia Cocaine abuse - counseled on cessation Greater than 30 minutes spent on d/c Discharge Information Condition at Discharge: Comment (AMA) Disposition/Orders: D/C to Home Scheduled Cyclobenzaprine Hcl (Cyclobenzaprine Hcl) 10 Mg Tablet, 1 TAB PO TID for muscle relaxer, #90 (Reported) Entered as Reported by: YEMI HAWKINS on 05/26/211830 Last Action: New Order on 05/26/211830 by YEMI HAWKINS Gabapentin (Gabapentin ) 300 Mg Capsule, 300 MG PO TID for NEUROGENIC PAIN, (Reported) Entered as Reported by: YEMI HAWKINS on 05/26/211830 Last Action: New Order on 05/26/211830 by YEMI HAWKINS Sucralfate (Sucralfate) 1 Gm Tablet, 1 TAB PO QID for GERD, #120 Ref 3 (Reported) Entered as Reported by: YEMI HAWKINS on 05/26/211830 Last Action: New Order on 05/26/211830 by YEMI HAWKINS Scheduled PRN Eszopiclone (Lunesta) 3 Mg Tablet, 1 TAB PO PRN QHS PRN for sleep MDD 1 Tablet(s) for 30 Days, #30 Ref 0 (Reported) Entered as Reported by: YEMI HAWKINS on 05/26/211830 Last Action: New Order on 05/26/211830 by YEMI HAWKINS Justicifation of Admission Dx: Justifications for Admission: Justification of Admission Dx: Yes STEPH CABALLERO MD May 27, 2021 09:31
== END 2021-05-27 08:20 | disposition left against medical advice (07) | DRG 543 ==
LOC: ER 14:49 → ED HOLD 17:26 → 4 NORTH 18:46 → OBSVTOIN 20:23 → 4 NORTH 20:30
PROVIDERS: ADMIT Student in an Organized Health Care Education/Training Program; ATTEND Student in an Organized Health Care Education/Training Program
DX: M48.56XA Collapsed vertebra, not elsewhere classified, lumbar region, initial encounter for fracture (principal); E87.2 Acidosis; K59.00 Constipation, unspecified; K21.9 Gastro-esophageal reflux disease without esophagitis; F17.200 Nicotine dependence, unspecified, uncomplicated; F14.10 Cocaine abuse, uncomplicated; F10.10 Alcohol abuse, uncomplicated; D64.9 Anemia, unspecified; M43.16 Spondylolisthesis, lumbar region; M43.17 Spondylolisthesis, lumbosacral region; R56.9 Unspecified convulsions; Z79.899 Other long term (current) drug therapy; Z82.49 Family history of ischemic heart disease and other diseases of the circulatory system; R73.9 Hyperglycemia, unspecified; Z53.29 Procedure and treatment not carried out because of patient's decision for other reasons; Z71.6 Tobacco abuse counseling
CPT/HCPCS: 36415; 70450; 74177; 80053; 80307; 81001; 82607; 82962; 83540; 83550; 83605; 83690; 83735; 84443; 85025; 87428; 96361; 96372; 96374; 96375; 96376; G0378; G0379; J1644; J1885; J2270; J2360; J2405; J3010; J7050; Q9967; 99285-25; J7030

== ENCOUNTER 2021-06-02 11:19 | Inpatient (IN) | payer SELFPAY ==
[~2021-06-02] VITALS: Ht 162.6 cm; Wt 70.9 kg
[~2021-06-02 11:19] MED LIST: CYCL10TA19 PO; ESZO3TAB28 PO; GABA300C18 PO; SUCR1TAB PO
--- NOTE | 2021-06-02 11:23 | PHYS DOC ---
Past Medical History Additional Past Medical Histor: LOWER BACK PAIN Past Surgical History: No Surgical History Smoking Status: Current Every Day Smoker Alcohol Use: Heavy General Adult HPI: HPI: Patient is a 60 year old female who is brought in by ambulance from home for evaluation of multiple episodes of witnessed seizure-like activity. I spoke with the patient's , and he reports that she began having seizures last night, shaking episodes, followed by periods of decreased responsiveness and snoring. She manifested teeth clenching, bleeding from her tongue and lips. She experienced multiple episodes of seizure-like activity this morning, and then he came into the room and saw her lying on the floor, and he tried to roll her over from her back onto her side or heard abdomen, and she sees for at least a minute, then was followed by. Of snoring and decreased responsiveness. EMS did not witness any seizure-like activity, the patient did seem to be postictal on their arrival. The patient was hypoxic, EMS placed nasal cannula oxygen. On arrival, the patient is drowsy, opens her eyes to pain, localizes to pain, but I am unable to elicit any meaningful verbal response from her. She does appear to be protecting her airway and has a gag reflex. I am unable to procure any meaningful information from her for more detailed review of systems. Last week, the patient had been admitted for intractable low back pain, lumbar spine fractures and reported inability to ambulate. The patient ultimately decided to leave AGAINST MEDICAL ADVICE. Her reports that she had been experiencing seizure-like activity in the hospital as well as prior to arrival as well. The patient has a history of heavy alcohol use. Her reports that she has been "trying to cut back." He thinks that she had 2 drinks of alcohol last night, none today reportedly. He denies that she has any history of drug use. However, her UDS is positive for cocaine. Her reports that she has not taken any of her prescription medications late last week or over the weekend or today. Her reports that she abuses any opioid medications. Review of Systems: Review of Systems: Unable to obtain meaningful history from the patient, as detailed in HPI. Review of systems is therefore significantly limited. Heart Score: C/O Chest Pain: N/A Risk Factors: Risk Factors: DM, Current or recent (<one month) smoker, HTN, HLP, family his tory of CAD, obesity. Risk Scores: Score 0 - 3: 2.5% MACE over next 6 weeks - Discharge Home Score 4 - 6: 20.3% MACE over next 6 weeks - Admit for Clinical Observation Score 7 - 10: 72.7% MACE over next 6 weeks - Early Invasive Strategies Allergies: Allergies: Allergies Coded Allergies Type Severity Reaction Last Updated Verified No Known Drug Allergies 05/25/21 No Physical Exam: PE: Constitutional: Cool, pale, frail, appears older than stated age, she is acutely ill-appearing. HENT: Normocephalic, atraumatic, dried blood in nares, dried blood in mouth and teeth. No active or brisk bleeding. Oropharynx is patent, clear, no pooling of secretions, gag reflex intact. External ears are normal bilaterally, no otorrhea. Dried blood in bilateral nares, no brisk or active bleeding, no clots. No midface trauma or swelling or contusions noted Eyes: PERRL, EOMI, conjunctiva normal, no discharge. Sclera are anicteric Neck: Normal range of motion, no tenderness, supple, no stridor. Trachea midline. No midline tenderness or step-offs of the cervical spine. No meningismus. Cardiovascular: Tachycardic, regular, rate in the low 100s, +2 radial pulses and +2 dorsalis pedis pulses bilaterally. Cap refill is delayed, extremities are cool, no cyanosis Lungs & Thorax: Equal chest rise, no evidence of chest or thorax trauma, mildly diminished breath sounds in bilateral bases. No wheezes, stridor, rales, rhonchi. Abdomen: No evidence of abdominal wall trauma or injury. Abdomen is soft, nondistended, nontender to palpation. No obvious palpable masses. Skin: Skin is dry, relatively cool, cap refill is slightly delayed, no cyanosis, no obvious open wounds or lacerations Extremities: No limb deformity, pelvis is stable. No peripheral edema noted. No palpable lymph tenderness. Neurologic: Exam shortly after arrival, the patient is drowsy, opens eyes to pain, localizes to pain, gag reflex is intact. No facial asymmetry noted. She does appear to move all 4 extremities symmetrically and equally, localizing to pain in all 4 extremities. Mumbles incoherently. As her ED stay progresses, the patient become slightly more awake, eyes open spontaneously, open to voice, continues to localize to pain, gag reflex intact, follows some commands, though not consistently. Telemetry Rn strength symmetric bilaterally. Unable to assess vision, unable to accurately assess sensation. She still mumbling occasionally. Psychologic: Affect is bizarre, flat EKG: EKG: EKG is interpreted at 1153 Rhythm is sinus tachycardia Rate is 107 bpm [place] is normal No STEMI Radiology/Procedures: Radiology/Procedures: IMAGING REPORT Signed PATIENT: POOJA COLLINS ACCOUNT: [id number] : 1960 LOCATION: ER AGE: 60 SEX: F EXAM STATUS: PRE ER ORD. PHYSICIAN: BLANK ROMAN DO REASON: AMS PROCEDURE: PORTABLE CHEST 1V Single view of the chest. 06/02/2021 11:47 AM Indication: Altered mental status Comparison: None Findings: Is diffuse right-sided, predominantly interstitial infiltrate. No pneumothorax. No pleural effusion. Heart size is normal. Bony thorax is grossly intact. IMPRESSION: Right-sided, predominantly interstitial infiltrates. Short-term radiographic follow-up recommended. Electronically signed by: Lavon Keys MD (06/02/2021 12:02 PM) [id number] DICTATED and SIGNED BY: LAVON KEYS MD DATE: 06/02/21 [id number] IMAGING REPORT Signed PATIENT: POOJA COLLINS ACCOUNT: [id number] : 1960 LOCATION: ER AGE: 60 SEX: F EXAM STATUS: REG ER ORD. PHYSICIAN: BLANK ROMAN DO REASON: AMS, weakness, seizure PROCEDURE: CT HEAD WO CONTRAST CT Head without contrast 06/02/2021 12:54 PM Indication: Altered mental status, weakness, seizure Comparison: CT head without contrast every 2021 Findings: No intracranial hemorrhage is seen. No evidence of acute territorial infarct is seen. Note that CT is limited in sensitivity for acute ischemia. Age-related atrophic changes are noted. There is patchy periventricular and deep white matter hypoattenuation which is nonspecific, but most commonly relates to chronic small vessel disease. No abnormal extra axial fluid collection is identified. No mass effect or midline shift is seen. There is a partially visualized fluid level in the right maxillary sinus. Correlate with evidence of sinusitis. No acute osseous abnormalities are seen. Impression: 1. No acute intracranial process identified 2. Age-related atrophy, and evidence of chronic small vessel disease as described 3. Fluid level within the partially visualized right maxillary sinus. Correlate with clinical evidence of sinusitis. CT DOSING PQRS STATEMENT: One or more of the following individualized dose reduction techniques were utilized for this examination: 1. Automated exposure control 2. Adjustment of the mA and/or kV according to patient size 3. Use of iterative reconstruction technique Electronically signed by: Lavon Keys MD (06/02/2021 1:55 PM) [id number] DICTATED and SIGNED BY: LAVON KEYS MD DATE: 06/02/21 [id number] 0 Course & Med Decision Making: Course & Med Decision Making Pertinent Labs and Imaging studies reviewed. (See chart for details) Patient is given IV fluid boluses. She is given external rewarming measures, temperature increased to 99. Blood cultures obtained. She is given IV Zosyn for empiric coverage of only sepsis but for possible aspiration pneumonitis. Seizure precautions initiated. No witnessed seizure activity here. She is slowly improving with her mental status, she is protecting her airway. Though she is still requiring supplemental oxygen per nasal cannula. She is kept n.p.o. She is still quite confused, but she is more awake and alert. She still cannot articulate any specific details of her seizures, she verbalizes no specific complaints either. I discussed the findings, differential diagnosis and plan of care with the patient, and I also explained this to her . I have explained my recommendation for hospitalization. She will be admitted to the ICU for further evaluation and treatment. Neurology consulted, though I do suspect alcohol withdrawal at least as a component if not sole underlying etiology for her seizures. She is excepted for admission by Dr. Phillip. Karenon Disclaimer: Kristy Disclaimer: This electronic medical record was generated, in whole or in part, using a voice recognition dictation system. Departure Departure Impression: Primary Impression: Seizure-like activity Additional Impressions: Alcohol withdrawal Hypothermia Lactic acidosis Sepsis Aspiration pneumonitis Acute kidney injury Rhabdomyolysis Disposition: ADMITTED INPATIENT Admitting Physician: KATEYS (Dr. Phillip) Condition: GUARDED Referrals: LANG PABON MD (PCP) BLANK ROMAN DO Jun 02, 2021 11:23
[2021-06-02] MEDS ORDERED: IV NORMAL SALINE 1000ML BAG 1,000 ML IV ONE ×3 (11:30→16:00)
[2021-06-02 11:44] LABS: BASO # 0.1 x10^3/uL (0.0-0.2); BASO % 1 % (0-3); EOS % 0 % (0-3); HEMOGLOBIN 8.8 g/dL (12.0-15.5); LYMPH # 0.9 x10^3/uL (1.0-4.8); LYMPH % 5 % (24-48); MEAN CORPUSCULAR HEMOGLOBIN 21 pg (25-35); MEAN CORPUSCULAR HGB CONC 30 g/dL (31-37); MONO # 0.5 x10^3/uL (0.0-1.1); MONO % 3 % (0-9); NEUT # 14.8 x10^3/uL (1.8-7.7); NEUT % 91 % (31-73); PLATELET COUNT 550 x10^3/uL (140-400); RED BLOOD COUNT 4.19 x10^6/uL (3.50-5.40); RED CELL DISTRIBUTION WIDTH 20.3 % (11.5-14.5); WHITE BLOOD COUNT 16.2 x10^3/uL (4.0-11.0)
[2021-06-02] MEDS ORDERED: NALOXONE 0.4 MG/ML VIAL. IV ONE (11:45)
[2021-06-02 11:52] LABS: MEAN CORPUSCULAR VOLUME 70 fL (79-100)
[2021-06-02 11:58] LABS: BASE EXCESS ABG -7 mmol/L (-3-3); HCO3 ABG 19 mmol/L (21-28); PCO2 ABG 35 mmHg (35-46); PO2 ABG 55 mmHg (65-108); SAT O2 ABG 84 % (92-99)
[2021-06-02 11:59] LABS: FIO2 ABG 21% ROOM AIR
[2021-06-02 12:04] LABS: CALCIUM 9.6 mg/dL (8.5-10.1); CREATININE 2.3 mg/dL (0.6-1.0); GFR 21.7; POTASSIUM 3.9 mmol/L (3.5-5.1)
--- NOTE | 2021-06-02 12:04 | RAD ---
Single view of the chest. 06/02/2021 11:47 AM Indication: Altered mental status Comparison: None Findings: Is diffuse right-sided, predominantly interstitial infiltrate. No pneumothorax. No pleural effusion. Heart size is normal. Bony thorax is grossly intact. IMPRESSION: Right-sided, predominantly interstitial infiltrates. Short-term radiographic follow-up re commended. Electronically signed by: Lavon Pineda MD (06/02/2021 12:02 PM) [id number]
[2021-06-02 12:20] LABS: ALBUMIN 3.8 g/dL (3.4-5.0); ALBUMIN/GLOBULIN RATIO 0.8 (1.0-1.7); MAGNESIUM 3.2 mg/dL (1.8-2.4); TOTAL BILIRUBIN 0.2 mg/dL (0.2-1.0); TOTAL PROTEIN 8.3 g/dL (6.4-8.2)
[2021-06-02] MEDS ORDERED: PIPERACILLIN/TAZOBACTAM 3.375 GM in IV NORMAL SALINE 50ML 50 ML IV ONE (12:30)
[2021-06-02 12:46] LABS: AMPHETAMINE/METHAMPHETAMINE NEG (NEG); BARBITURATES NEG (NEG); BENZODIAZEPINES POS (NEG); BILIRUBIN,URINE NEGATIVE (NEG); CANNABINOIDS NEG (NEG); CLARITY,URINE CLEAR; COCAINE POS (NEG); COLOR,URINE YELLOW; METHADONE NEG (NEG); OPIATES NEG (NEG); PHENCYCLIDINE NEG (NEG)
[2021-06-02 12:47] LABS: HYALINE CASTS, URINE FEW /HPF; NITRITE,URINE NEGATIVE (NEG); PROTEIN,URINE 100 mg/dL (NEG-TRACE); UROBILINOGEN,URINE 0.2 mg/dL (0.2 mg/dL)
[2021-06-02 12:48] LABS: BACTERIA,URINE FEW /HPF (0-FEW); WBC,URINE OCC /HPF (0-4)
[2021-06-02 12:51] LABS: % BANDS 26 % (0-9); % LYMPHS 4 % (24-48); % METAS 2 % (0-0); % MONOS 3 % (0-10); % SEGS 65 % (35-66)
[2021-06-02 12:52] LABS: ANISOCYTOSIS MOD; MICROCYTOSIS PRESENT; PLT ESTIMATE INCREASED (ADEQUATE)
--- NOTE | 2021-06-02 13:58 | RAD ---
CT Head without contrast 06/02/2021 12:54 PM Indication: Altered mental status, weakness, seizure Comparison: CT head without contrast every 2021 Findings: No intracranial hemorrhage is seen. No evidence of acute territorial infarct is seen. Note that CT is limited in sensitivity for acute ischemia. Age-related atrophic changes are noted. Ther e is patchy periventricular and deep white matter hypoattenuation which is nonspecific, but most comm only relates to chronic small vessel disease. No abnormal extra axial fluid collection is identified . No mass effect or midline shift is seen. There is a partially visualized fluid level in the right maxillary sinus. Correlate with evidence of sinusitis. No acute osseous abnormalities are seen. Impression: 1. No acute intracranial process identified 2. Age-related atrophy, and evidence of chronic small vessel disease as described 3. Fluid level within the partially visualized right maxillary sinus. Correlate with clinical evidenc e of sinusitis. CT DOSING PQRS STATEMENT: One or more of the following individualized dose reduction techniques were utilized for this examinat ion: 1. Automated exposure control 2. Adjustment of the mA and/or kV according to patient size 3. Use of iterative reconstruction technique Electronically signed by: Lavon Pineda MD (06/02/2021 1:55 PM) [id number]
[2021-06-02] MEDS ORDERED: ONDANSETRON PF 4 MG/2 ML VIAL. IVP PRN (15:00)
[2021-06-02] MEDS: MULTIVIT INFUSN,ADULT 4,VIT K 10 ML, THIAMINE INJ 100 MG, FOLIC ACID INJ 1 MG in IV NOR... IV SCH (15:10)
[2021-06-02] MEDS ORDERED: IV DEXTROSE 5 %-0.45 % NACL 1,000 ML IV ONE (16:00)
--- NOTE | 2021-06-02 16:49 | NUR ---
Unsuccessful straight stick attempt for a russo tube. Phyllis CAMEJO notified.
[2021-06-02] MEDS ORDERED: AMPICILLIN/SULBACTAM 3 GM in IV DEXTROSE 5% 100ML 100 ML IV SCH (18:00)
[2021-06-02 18:59] VITALS: BP 157/86
[2021-06-02 23:21] VITALS: BP 152/84
[2021-06-02] MEDS: MORPHINE SULFATE 2 MG/ML INJ. IVP PRN (23:26)
--- NOTE | 2021-06-03 00:13 | PDOC1 ---
History and Physical Date of Service: DOS: LATE ENTRY FOR 06/02 Chief Complaint: Chief Complain: seizure History of Present Illness: HPI: Patient notably altered thus hpi from ED "Patient is a 60 year old female who is brought in by ambulance from home for evaluation of multiple episodes of witnessed seizure-like activity. I spoke with the patient's , and he reports that she began having seizures last night, shaking episodes, followed by periods of decreased responsiveness and snoring. She manifested teeth clenching, bleeding from her tongue and lips. She experienced multiple episodes of seizure-like activity this morning, and then he came into the room and saw her lying on the floor, and he tried to roll her over from her back onto her side or heard abdomen, and she sees for at least a minute, then was followed by. Of snoring and decreased responsiveness. EMS did not witness any seizure-like activity, the patient did seem to be postictal on their arrival. The patient was hypoxic, EMS placed nasal cannula oxygen. On arrival, the patient is drowsy, opens her eyes to pain, localizes to pain, but I am unable to elicit any meaningful verbal response from her. She does appear to be protecting her airway and has a gag reflex. I am unable to procure any meaningful information from her for more detailed review of systems. Last week, the patient had been admitted for intractable low back pain, lumbar spine fractures and reported inability to ambulate. The patient ultimately decided to leave AGAINST MEDICAL ADVICE. Her reports that she had been experiencing seizure-like activity in the hospital as well as prior to arrival as well. The patient has a history of heavy alcohol use. Her reports that she has been "trying to cut back." He thinks that she had 2 drinks of alcohol last night, none today reportedly. He denies that she has any history of drug use. However, her UDS is positive for cocaine. Her reports that she has not taken any of her prescription medications late last week or over the weekend or today. Her reports that she abuses any opioid medications." Past Medical/Surgical History: PMH/PSH: alcohol abuse Allergies: Allergies: Coded Allergies: No Known Drug Allergies (Unverified , 05/25/21) Family History: Family History: could not obtain from patient Social History: Social History: daily alcohol use, cocaine use per UDS, unknown tobacco Current Medications: Current Medications Current Medications Sodium Chloride 1,000 ml @ 1,000 mls/hr 1X ONCE IV Last administered on 06/02/21at 11:35; Start 06/02/21 at 11:30; Stop 06/02/21 at 12:29; Status DC Sodium Chloride 1,000 ml @ 1,000 mls/hr 1X ONCE IV Last administered on 06/02/21at 11:35; Start 06/02/21 at 11:30; Stop 06/02/21 at 12:29; Status DC Naloxone HCl (Narcan) 0.4 mg 1X ONCE IV Last administered on 06/02/21at 12:09; Start 06/02/21 at 11:45; Stop 06/02/21 at 11:46; Status DC Piperacillin Sod/ Tazobactam Sod 3.375 gm/Sodium Chloride 50 ml @ 100 mls/hr 1X ONCE IV Last administered on 06/02/21at 12:47; Start 06/02/21 at 12:30; Stop 06/02/21 at 12:59; Status DC Ondansetron HCl (Zofran) 4 mg PRN Q8HRS PRN IVP NAUSEA/VOMITING; Start 06/02/21 at 15:00; Stop 06/03/21 at 14:59 Dextrose/Sodium Chloride 1,000 ml @ 125 mls/hr 1X ONCE IV Last administered on 06/02/21at 16:20; Start 06/02/21 at 16:00; Stop 06/03/21 at 00:00; Status DC Multivitamins 10 ml/Thiamine HCl 100 mg/Folic Acid 1 mg/Sodium Chloride 1,011.2 ml @ 100 mls/ hr DAILY IV Last administered on 06/02/21at 15:10; Start 06/02/21 at 15:30; Stop 06/06/21 at 19:07 Folic Acid (Folic Acid) 1 mg DAILY PO ; Start 06/07/21 at 09:00 Thiamine Mononitrate (Vitamin B-1) 100 mg DAILY PO ; Start 06/07/21 at 09:00 Lorazepam (Ativan Inj) 2 mg PRN Q1HR PRN IV For CIWA 8-14 Last administered on 06/02/21at 21:36; Start 06/02/21 at 15:00 Lorazepam (Ativan Inj) 4 mg PRN Q1HR PRN IV For CIWA 15 or greater; Start at 15:00 Lorazepam (Ativan Inj) 2 mg PRN Q15MIN PRN IV SEE COMMENTS; Start 06/02/21 at 15:00 Lorazepam (Ativan Inj) 4 mg PRN Q15MIN PRN IV SEE COMMENTS; Start 06/02/21 at 15:00 Sodium Chloride 1,000 ml @ 100 mls/hr 1X ONCE IV Last administered on 06/02at 21:30; Start 06/02/21 at 16:00; Stop 06/03/21 at 01:59 Ampicillin Sodium/ Sulbactam Sodium 3 gm/Dextrose 100 ml @ 200 mls/hr Q6HRS IV Last administered on 06/02/21at 21:31; Start 06/02/21 at 18:00 Multivitamins 10 ml/Thiamine HCl 100 mg/Folic Acid 1 mg/Sodium Chloride 1,011.2 ml @ 100 mls/ hr DAILY IV ; Start 06/03/21 at 09:00; Stop 06/07/21 at 19:07; Status UNV Multivitamins (Thera M Plus) 1 tab DAILY PO ; Start 06/07/21 at 09:00; Status UNV Folic Acid (Folic Acid) 1 mg DAILY PO ; Start 06/07/21 at 09:00; Status UNV Thiamine Mononitrate (Vitamin B-1) 100 mg DAILY PO ; Start 06/07/21 at 09:00; Status UNV Lorazepam (Ativan Inj) 2 mg PRN Q1HR PRN IV For CIWA 8-14; Start 06/02/21 at 16:00; Status UNV Lorazepam (Ativan Inj) 4 mg PRN Q1HR PRN IV For CIWA 15 or greater; Start 06/02/21 at 16:00; Status UNV Levetiracetam 100 ml @ 400 mls/hr Q12HR IV Last administered on 06/02/21at 2 1:30; Start 06/02/21 at 21:00 Morphine Sulfate (Morphine Sulfate) 2 mg PRN Q2HR PRN IVP PAIN Last administered on 06/02/21at 23:26; Start 06/02/21 at 23:30 Active Scripts Active Reported Sucralfate 1 Gm Tablet 1 Tab PO QID Cyclobenzaprine Hcl 10 Mg Tablet 1 Tab PO TID Gabapentin (Gabapentin) 300 Mg Capsule 300 Mg PO TID Lunesta (Eszopiclone) 3 Mg Tablet 1 Tab PO PRN QHS PRN MDD 1 Tablet(s) 30 Days ROS: Review of Systems Review of System Unable to obtain from patient due to AMS Physical Exam: Vital Signs: Vital Signs Date Time Temp Pulse Resp B/P (MAP) Pulse Ox O2 Delivery O2 Flow Rate FiO2 06/02/21 23:21 99.6 100 18 152/84 (106) 95 Nasal Cannula 99.6 06/02/21 16:18 3.0 Physcial Exam: GEN: lethargic HEENT: Normal cephalic, atraumatic, external auditory canals are patent EYES: Extraocular muscles are intact, pupil are equally round and reactive to light and accommodation MUSCULOSKELETAL: Well developed , well nourished ENDOCRINE: No thyromegaly was palpated LYMPHATICS: No cervical chain or axillary nodes were noted HEMATOPOIETIC: No bruising NECK: Supple, no JVD, no thyromegaly was noted LUNGS: Clear to auscultation in all lung boyle without rhonchi or wheezing HEART: RRR, S1, S2 present. Peripheral pulses intact, no obvious murmurs noted ABDOMEN: Soft, nontender. Positive bowel sounds, no organomegaly, normal bowel sounds EXTREMITIES: Without clubbing, cyanosis, or edema. Pedal pulses intact. Negative Homans sign NEUROLOGIC: no apparent focal deficits but difficult exam given mental status PSYCHIATRIC: cannot assess, patient confused SKIN: No ulcerations or rashes, good skin turgor, no jaundice VASCULAR: Good capillary refill, neurovascular bundle appears to be intact Labs: Labs: Laboratory Tests Test 06/02/21 11:27 06/02/21 11:28 06/02/21 11:49 06/02/21 12:00 White Blood Count 16.2 x10^3/uL (4.0-11.0) Red Blood Count 4.19 x10^6/uL (3.50-5.40) Hemoglobin 8.8 g/dL (12.0-15.5) Hematocrit 30.0 % (36.0-47.0) Mean Corpuscular Volume 70 fL (79-100) Mean Corpuscular Hemoglobin 21 pg (25-35) Mean Corpuscular Hemoglobin Concent 30 g/dL (31-37) Red Cell Distribution Width 20.3 % (11.5-14.5) Platelet Count 550 x10^3/uL (140-400) Neutrophils (%) (Auto) 91 % (31-73) Lymphocytes (%) (Auto) 5 % (24-48) Monocytes (%) (Auto) 3 % (0-9) Eosinophils (%) (Auto) 0 % (0-3) Basophils (%) (Auto) 1 % (0-3) Neutrophils # (Auto) 14.8 x10^3/uL (1.8-7.7) Lymphocytes # (Auto) 0.9 x10^3/uL (1.0-4.8) Monocytes # (Auto) 0.5 x10^3/uL (0.0-1.1) Eosinophils # (Auto) 0.0 x10^3/uL (0.0-0.7) Basophils # (Auto) 0.1 x10^3/uL (0.0-0.2) Segmented Neutrophils % 65 % (35-66) Band Neutrophils % 26 % (0-9) Lymphocytes % 4 % (24-48) Monocytes % 3 % (0-10) Metamyelocytes % 2 % (0-0) Platelet Estimate Increased (ADEQUATE) Anisocytosis Mod Microcytosis Present Sodium Level 145 mmol/L (136-145) Potassium Level 3.9 mmol/L (3.5-5.1) Chloride Level 102 mmol/L (98-107) Carbon Dioxide Level 19 mmol/L (21-32) Anion Gap 24 (6-14) Blood Urea Nitrogen 17 mg/dL (7-20) Creatinine 2.3 mg/dL (0.6-1.0) Estimated GFR (Cockcroft-Gault) 21.7 BUN/Creatinine Ratio 7 (6-20) Glucose Level 91 mg/dL (70-99) Lactic Acid Level 13.4 mmol/L (0.4-2.0) Calcium Level 9.6 mg/dL (8.5-10.1) Magnesium Level 3.2 mg/dL (1.8-2.4) Total Bilirubin 0.2 mg/dL (0.2-1.0) Aspartate Amino Transf (AST/SGOT) 41 U/L (15-37) Alanine Aminotransferase (ALT/SGPT) 29 U/L (14-59) Alkaline Phosphatase 139 U/L (46-116) Ammonia 34 mcmol/L (11-34) Creatine Kinase 1556 U/L (26-192) Troponin I High Sensitivity 19 ng/L (4-50) Total Protein 8.3 g/dL (6.4-8.2) Albumin 3.8 g/dL (3.4-5.0) Albumin/Globulin Ratio 0.8 (1.0-1.7) Ethyl Alcohol Level < 10 mg/dL (0-10) SARS-CoV-2 Antigen (Rapid) Negative (NEGATIVE) O2 Saturation 84 % (92-99) Arterial Blood pH 7.34 (7.35-7.45) Arterial Blood pCO2 at Patient Temp 35 mmHg (35-46) Arterial Blood pO2 at Patient Temp 55 mmHg (65-108) Arterial Blood HCO3 19 mmol/L (21-28) Arterial Blood Base Excess -7 mmol/L (-3-3) FiO2 21% room air Glucose (Fingerstick) 83 mg/dL (70-99) Test 06/02/21 12:22 06/02/21 16:23 06/02/21 17:40 Urine Collection Type U cath Urine Color Yellow Urine Clarity Clear Urine pH 6.0 (<5.0-8.0) Urine Specific [place] >=1.030 (1.000-1.030) Urine Protein 100 mg/dL (NEG-TRACE) Urine Glucose (UA) Negative mg/dL (NEG) Urine Ketones (Stick) Negative mg/dL (NEG) Urine Blood Large (NEG) Urine Nitrite Negative (NEG) Urine Bilirubin Negative (NEG) Urine Urobilinogen Dipstick 0.2 mg/dL (0.2 mg/dL) Urine Leukocyte Esterase Negative (NEG) Urine RBC 3-5 /HPF (0-2) Urine WBC Occ /HPF (0-4) Urine Squamous Epithelial Cells Occ /LPF Urine Bacteria Few /HPF (0-FEW) Urine Hyaline Casts Few /HPF Urine Mucus Marked /LPF Urine Opiates Screen Neg (NEG) Urine Methadone Screen Neg (NEG) Urine Barbiturates Neg (NEG) Urine Phencyclidine Screen Neg (NEG) Urine Amphetamine/Methamphetamine Neg (NEG) Urine Benzodiazepines Screen Pos (NEG) Urine Cocaine Screen Pos (NEG) Urine Cannabinoids Screen Neg (NEG) Urine Ethyl Alcohol Neg (NEG) Glucose (Fingerstick) 95 mg/dL (70-99) Lactic Acid Level 1.8 mmol/L (0.4-2.0) Laboratory Tests Test 06/02/21 11:27 06/02/21 11:28 06/02/21 11:49 06/02/21 12:00 White Blood Count 16.2 x10^3/uL (4.0-11.0) Red Blood Count 4.19 x10^6/uL (3.50-5.40) Hemoglobin 8.8 g/dL (12.0-15.5) Hematocrit 30.0 % (36.0-47.0) Mean Corpuscular Volume 70 fL (79-100) Mean Corpuscular Hemoglobin 21 pg (25-35) Mean Corpuscular Hemoglobin Concent 30 g/dL (31-37) Red Cell Distribution Width 20.3 % (11.5-14.5) Platelet Count 550 x10^3/uL (140-400) Neutrophils (%) (Auto) 91 % (31-73) Lymphocytes (%) (Auto) 5 % (24-48) Monocytes (%) (Auto) 3 % (0-9) Eosinophils (%) (Auto) 0 % (0-3) Basophils (%) (Auto) 1 % (0-3) Neutrophils # (Auto) 14.8 x10^3/uL (1.8-7.7) Lymphocytes # (Auto) 0.9 x10^3/uL (1.0-4.8) Monocytes # (Auto) 0.5 x10^3/uL (0.0-1.1) Eosinophils # (Auto) 0.0 x10^3/uL (0.0-0.7) Basophils # (Auto) 0.1 x10^3/uL (0.0-0.2) Segmented Neutrophils % 65 % (35-66) Band Neutrophils % 26 % (0-9) Lymphocytes % 4 % (24-48) Monocytes % 3 % (0-10) Metamyelocytes % 2 % (0-0) Platelet Estimate Increased (ADEQUATE) Anisocytosis Mod Microcytosis Present Sodium Level 145 mmol/L (136-145) Potassium Level 3.9 mmol/L (3.5-5.1) Chloride Level 102 mmol/L (98-107) Carbon Dioxide Level 19 mmol/L (21-32) Anion Gap 24 (6-14) Blood Urea Nitrogen 17 mg/dL (7-20) Creatinine 2.3 mg/dL (0.6-1.0) Estimated GFR (Cockcroft-Gault) 21.7 BUN/Creatinine Ratio 7 (6-20) Glucose Level 91 mg/dL (70-99) Lactic Acid Level 13.4 mmol/L (0.4-2.0) Calcium Level 9.6 mg/dL (8.5-10.1) Magnesium Level 3.2 mg/dL (1.8-2.4) Total Bilirubin 0.2 mg/dL (0.2-1.0) Aspartate Amino Transf (AST/SGOT) 41 U/L (15-37) Alanine Aminotransferase (ALT/SGPT) 29 U/L (14-59) Alkaline Phosphatase 139 U/L (46-116) Ammonia 34 mcmol/L (11-34) Creatine Kinase 1556 U/L (26-192) Troponin I High Sensitivity 19 ng/L (4-50) Total Protein 8.3 g/dL (6.4-8.2) Albumin 3.8 g/dL (3.4-5.0) Albumin/Globulin Ratio 0.8 (1.0-1.7) Ethyl Alcohol Level < 10 mg/dL (0-10) SARS-CoV-2 Antigen (Rapid) Negative (NEGATIVE) O2 Saturation 84 % (92-99) Arterial Blood pH 7.34 (7.35-7.45) Arterial Blood pCO2 at Patient Temp 35 mmHg (35-46) Arterial Blood pO2 at Patient Temp 55 mmHg (65-108) Arterial Blood HCO3 19 mmol/L (21-28) Arterial Blood Base Excess -7 mmol/L (-3-3) FiO2 21% room air Glucose (Fingerstick) 83 mg/dL (70-99) Test 06/02/21 12:22 06/02/21 16:23 06/02/21 17:40 Urine Collection Type U cath Urine Color Yellow Urine Clarity Clear Urine pH 6.0 (<5.0-8.0) Urine Specific [place] >=1.030 (1.000-1.030) Urine Protein 100 mg/dL (NEG-TRACE) Urine Glucose (UA) Negative mg/dL (NEG) Urine Ketones (Stick) Negative mg/dL (NEG) Urine Blood Large (NEG) Urine Nitrite Negative (NEG) Urine Bilirubin Negative (NEG) Urine Urobilinogen Dipstick 0.2 mg/dL (0.2 mg/dL) Urine Leukocyte Esterase Negative (NEG) Urine RBC 3-5 /HPF (0-2) Urine WBC Occ /HPF (0-4) Urine Squamous Epithelial Cells Occ /LPF Urine Bacteria Few /HPF (0-FEW) Urine Hyaline Casts Few /HPF Urine Mucus Marked /LPF Urine Opiates Screen Neg (NEG) Urine Methadone Screen Neg (NEG) Urine Barbiturates Neg (NEG) Urine Phencyclidine Screen Neg (NEG) Urine Amphetamine/Methamphetamine Neg (NEG) Urine Benzodiazepines Screen Pos (NEG) Urine Cocaine Screen Pos (NEG) Urine Cannabinoids Screen Neg (NEG) Urine Ethyl Alcohol Neg (NEG) Glucose (Fingerstick) 95 mg/dL (70-99) Lactic Acid Level 1.8 mmol/L (0.4-2.0) Assessment/Plan Assessment/Plan Seizure like activity likely 2/2 alcohol w/d vs cocaine intoxication; Sepsis, pneumonia suspect possible aspiration, JOSE likely vasomotor nephropathy -presented with witness seizure like activity per -no further seizure like activity in EMS or ED -normal CT head -alcohol w/d precautions, CIWA -chest imaging showing right sided consolidation -Zosyn given in ED, concern for aspiration, will continue -DVT prophylaxis -ADAT -home meds resumed as indicated; hold off gabapentin given jose, can resume in morning if Cr improved Justifications for Admission Other Justification STEPH DEGROOT MD Jun 03, 2021 00:13
[2021-06-03] MEDS ORDERED: PIP/TAZO PER PHARMACY MC PRN ×2 (00:15→11:15)
[2021-06-03] MEDS: PIPERACILLIN/TAZOBACTAM 3.375 GM in IV NORMAL SALINE 50ML 50 ML IV SCH ×5 (00:53→23:44)
[2021-06-03] MEDS: MORPHINE SULFATE 2 MG/ML INJ. IVP PRN ×2 (02:12→19:57)
[2021-06-03 03:17] VITALS: BP 130/74
[2021-06-03 07:00] VITALS: BP 147/80
--- NOTE | 2021-06-03 08:43 | PDOC2 ---
NEUROLOGY CONSULT Date of Service DOS: DATE: 06/03/21 TIME: 08:38 Reason for Consult Reason for Consult: Seizures Referring Physician Referring Physician: Dr. Phillip Source Source: Chart review History of Present Illness History of Present Illness The patient is a 60-year-old right-handed female brought in by ambulance for multiple episodes of seizures. She was here last week with back pain, urine drug screen and was positive for opiates and cocaine. Urine drug screen this time is positive for benzodiazepines and cocaine. Has been told personnel last week that she was having some seizure activity in the hospital last week. Patient uses alcohol heavily but trying to cut back. Her last alcohol was 2 drinks on 06/01. She has had no seizures reported since admission. No anticonvulsants were started, I began levetiracetam last night. There is no history of prior seizures, strokes, or major head injuries. Past Medical History Psych: Addictions Musculoskeletal: low back pain Past Surgical History Past Surgical History: No pertinent history Family History Family History: No pertinent hx (Unobtainable) Social History Social History Unobtainable Current Medications Current Medications Current Medications Sodium Chloride 1,000 ml @ 1,000 mls/hr 1X ONCE IV Last administered on 06/02/21at 11:35; Start 06/02/21 at 11:30; Stop 06/02/21 at 12:29; Status DC Sodium Chloride 1,000 ml @ 1,000 mls/hr 1X ONCE IV Last administered on 06/02/21at 11:35; Start 06/02/21 at 11:30; Stop 06/02/21 at 12:29; Status DC Naloxone HCl (Narcan) 0.4 mg 1X ONCE IV Last administered on 06/02/21at 12:09; Start 06/02/21 at 11:45; Stop 06/02/21 at 11:46; Status DC Piperacillin Sod/ Tazobactam Sod 3.375 gm/Sodium Chloride 50 ml @ 100 mls/hr 1X ONCE IV Last administered on 06/02/21at 12:47; Start 06/02/21 at 12:30; Stop 06/02/21 at 12:59; Status DC Ondansetron HCl (Zofran) 4 mg PRN Q8HRS PRN IVP NAUSEA/VOMITING; Start 06/02/21 at 15:00; Stop 06/03/21 at 14:59 Dextrose/Sodium Chloride 1,000 ml @ 125 mls/hr 1X ONCE IV Last administered on 06/02/21at 16:20; Start 06/02/21 at 16:00; Stop 06/03/21 at 00:00; Status DC Multivitamins 10 ml/Thiamine HCl 100 mg/Folic Acid 1 mg/Sodium Chloride 1,011.2 ml @ 100 mls/ hr DAILY IV Last administered on 06/02/21at 15:10; Start 06/02/21 at 15:30; Stop 06/06/21 at 19:07 Folic Acid (Folic Acid) 1 mg DAILY PO ; Start 06/07/21 at 09:00 Thiamine Mononitrate (Vitamin B-1) 100 mg DAILY PO ; Start 06/07/21 at 09:00 Lorazepam (Ativan Inj) 2 mg PRN Q1HR PRN IV For CIWA 8-14 Last administered on 06/03/21at 05:31; Start 06/02/21 at 15:00 Lorazepam (Ativan Inj) 4 mg PRN Q1HR PRN IV For CIWA 15 or greater; Start 06/02/21 at 15:00 Lorazepam (Ativan Inj) 2 mg PRN Q15MIN PRN IV SEE COMMENTS; Start 06/02/21 at 15:00 Lorazepam (Ativan Inj) 4 mg PRN Q15MIN PRN IV SEE COMMENTS; Start 06/02/21 at 15:00 Sodium Chloride 1,000 ml @ 100 mls/hr 1X ONCE IV Last administered on 06/02/21at 21:30; Start 06/02/21 at 16:00; Stop 06/03/21 at 01:59; Status DC Ampicillin Sodium/ Sulbactam Sodium 3 gm/Dextrose 100 ml @ 200 mls/hr Q6HRS IV Last administered on 06/02/21at 21:31; Start 06/02/21 at 18:00; Stop 06/03/21 at 00:22; Status DC Multivitamins 10 ml/Thiamine HCl 100 mg/Folic Acid 1 mg/Sodium Chloride 1,011.2 ml @ 100 mls/ hr DAILY IV ; Start 06/03/21 at 09:00; Stop 06/07/21 at 19:07; Status UNV Multivitamins (Thera M Plus) 1 tab DAILY PO ; Start 06/07/21 at 09:00; Status UNV Folic Acid (Folic Acid) 1 mg DAILY PO ; Start 06/07/21 at 09:00; Status UNV Thiamine Mononitrate (Vitamin B-1) 100 mg DAILY PO ; Start 06/07/21 at 09:00; Status UNV Lorazepam (Ativan Inj) 2 mg PRN Q1HR PRN IV For CIWA 8-14; Start 06/02/21 at 16:00; Status UNV Lorazepam (Ativan Inj) 4 mg PRN Q1HR PRN IV For CIWA 15 or greater; Start 06/02/21 at 16:00; Status UNV Levetiracetam 100 ml @ 400 mls/hr Q12HR IV Last administered on 06/02/21at 21:30; Start 06/02/21 at 21:00 Morphine Sulfate (Morphine Sulfate) 2 mg PRN Q2HR PRN IVP PAIN Last administered on 06/03/21at 02:12; Start 06/02/21 at 23:30 Piperacillin Sod/ Tazobactam Sod (Zosyn Per Pharmacy) 1 each PRN DAILY PRN MC SEE COMMENTS; Start 06/03/21 at 00:15 Sucralfate (Carafate) 1 gm QIDPMEDS PO ; Start 06/03/21 at 10:00 Piperacillin Sod/ Tazobactam Sod 3.375 gm/Sodium Chloride 50 ml @ 100 mls/hr Q6HRS IV Last administered on 06/03/21at 00:53; Start 06/03/21 at 01:00 Active Scripts Active Reported Sucralfate 1 Gm Tablet 1 Tab PO QID Cyclobenzaprine Hcl 10 Mg Tablet 1 Tab PO TID Gabapentin (Gabapentin) 300 Mg Capsule 300 Mg PO TID Lunesta (Eszopiclone) 3 Mg Tablet 1 Tab PO PRN QHS PRN MDD 1 Tablet(s) 30 Days Allergies Allergies: Coded Allergies: No Known Drug Allergies (Unverified , 05/25/21) ROS Review of System Unobtainable Physical Exam Physical Examination General: Well-developed, well-nourished, white female, in no acute distress HEENT: Normocephalic andatraumatic. Temporal arteriespulsatile and nontender. Neck: Supple without bruit, no meningismus Musculoskeletal: Stability:see neurologic. Gait exam:see neurologic. Tone:see neurologic.Strength:see neurologic. Neurological: Mental Status:orientation, memory, attention span/concentration, language, fund of knowledge: Sleepy, arouses easily, tells me her name, follows a few commands, does not know date or location and does not speak otherwise. Cranial Nerves:Pupils equal and reactive to light, extraocular movements areintact, visual boyle are full to confrontation. Facial sensation is normal. There is no facial asymmetry. Vestibulo-ocular reflex is intact. Palate elevates and tongue protrudes in midline. All other cranial related problems are negative except as mentioned before.Reflexes:2+ and symmetric with flexor plantar responses. Motor:Moves all extremities with normal tone and bulk. Coordination and gait: Not cooperative. Sensory:Not cooperative, responds to pinprick in all 4 extremities Vitals VITALS Vital Signs Date Time Temp Pulse Resp B/P (MAP) Pulse Ox O2 Delivery O2 Flow Rate FiO2 06/03/21 07:00 98.2 104 20 147/80 (102) 91 Nasal Cannula 98.2 06/02/21 20:00 2.0 Labs Labs Laboratory Tests Test 06/02/21 11:27 06/02/21 11:28 06/02/21 11:49 06/02/21 12:00 White Blood Count 16.2 x10^3/uL (4.0-11.0) Red Blood Count 4.19 x10^6/uL (3.50-5.40) Hemoglobin 8.8 g/dL (12.0-15.5) Hematocrit 30.0 % (36.0-47.0) Mean Corpuscular Volume 70 fL (79-100) Mean Corpuscular Hemoglobin 21 pg (25-35) Mean Corpuscular Hemoglobin Concent 30 g/dL (31-37) Red Cell Distribution Width 20.3 % (11.5-14.5) Platelet Count 550 x10^3/uL (140-400) Neutrophils (%) (Auto) 91 % (31-73) Lymphocytes (%) (Auto) 5 % (24-48) Monocytes (%) (Auto) 3 % (0-9) Eosinophils (%) (Auto) 0 % (0-3) Basophils (%) (Auto) 1 % (0-3) Neutrophils # (Auto) 14.8 x10^3/uL (1.8-7.7) Lymphocytes # (Auto) 0.9 x10^3/uL (1.0-4.8) Monocytes # (Auto) 0.5 x10^3/uL (0.0-1.1) Eosinophils # (Auto) 0.0 x10^3/uL (0.0-0.7) Basophils # (Auto) 0.1 x10^3/uL (0.0-0.2) Segmented Neutrophils % 65 % (35-66) Band Neutrophils % 26 % (0-9) Lymphocytes % 4 % (24-48) Monocytes % 3 % (0-10) Metamyelocytes % 2 % (0-0) Platelet Estimate Increased (ADEQUATE) Anisocytosis Mod Microcytosis Present Sodium Level 145 mmol/L (136-145) Potassium Level 3.9 mmol/L (3.5-5.1) Chloride Level 102 mmol/L (98-107) Carbon Dioxide Level 19 mmol/L (21-32) Anion Gap 24 (6-14) Blood Urea Nitrogen 17 mg/dL (7-20) Creatinine 2.3 mg/dL (0.6-1.0) Estimated GFR (Cockcroft-Gault) 21.7 BUN/Creatinine Ratio 7 (6-20) Glucose Level 91 mg/dL (70-99) Lactic Acid Level 13.4 mmol/L (0.4-2.0) Calcium Level 9.6 mg/dL (8.5-10.1) Magnesium Level 3.2 mg/dL (1.8-2.4) Total Bilirubin 0.2 mg/dL (0.2-1.0) Aspartate Amino Transf (AST/SGOT) 41 U/L (15-37) Alanine Aminotransferase (ALT/SGPT) 29 U/L (14-59) Alkaline Phosphatase 139 U/L (46-116) Ammonia 34 mcmol/L (11-34) Creatine Kinase 1556 U/L (26-192) Troponin I High Sensitivity 19 ng/L (4-50) Total Protein 8.3 g/dL (6.4-8.2) Albumin 3.8 g/dL (3.4-5.0) Albumin/Globulin Ratio 0.8 (1.0-1.7) Ethyl Alcohol Level < 10 mg/dL (0-10) SARS-CoV-2 Antigen (Rapid) Negative (NEGATIVE) O2 Saturation 84 % (92-99) Arterial Blood pH 7.34 (7.35-7.45) Arterial Blood pCO2 at Patient Temp 35 mmHg (35-46) Arterial Blood pO2 at Patient Temp 55 mmHg (65-108) Arterial Blood HCO3 19 mmol/L (21-28) Arterial Blood Base Excess -7 mmol/L (-3-3) FiO2 21% room air Glucose (Fingerstick) 83 mg/dL (70-99) Test 06/02/21 12:22 06/02/21 16:23 06/02/21 17:40 Urine Collection Type U cath Urine Color Yellow Urine Clarity Clear Urine pH 6.0 (<5.0-8.0) Urine Specific [place] >=1.030 (1.000-1.030) Urine Protein 100 mg/dL (NEG-TRACE) Urine Glucose (UA) Negative mg/dL (NEG) Urine Ketones (Stick) Negative mg/dL (NEG) Urine Blood Large (NEG) Urine Nitrite Negative (NEG) Urine Bilirubin Negative (NEG) Urine Urobilinogen Dipstick 0.2 mg/dL (0.2 mg/dL) Urine Leukocyte Esterase Negative (NEG) Urine RBC 3-5 /HPF (0-2) Urine WBC Occ /HPF (0-4) Urine Squamous Epithelial Cells Occ /LPF Urine Bacteria Few /HPF (0-FEW) Urine Hyaline Casts Few /HPF Urine Mucus Marked /LPF Urine Opiates Screen Neg (NEG) Urine Methadone Screen Neg (NEG) Urine Barbiturates Neg (NEG) Urine Phencyclidine Screen Neg (NEG) Urine Amphetamine/Methamphetamine Neg (NEG) Urine Benzodiazepines Screen Pos (NEG) Urine Cocaine Screen Pos (NEG) Urine Cannabinoids Screen Neg (NEG) Urine Ethyl Alcohol Neg (NEG) Glucose (Fingerstick) 95 mg/dL (70-99) Lactic Acid Level 1.8 mmol/L (0.4-2.0) Laboratory Tests Test 06/02/21 11:27 06/02/21 11:28 06/02/21 11:49 06/02/21 12:00 White Blood Count 16.2 x10^3/uL (4.0-11.0) Red Blood Count 4.19 x10^6/uL (3.50-5.40) Hemoglobin 8.8 g/dL (12.0-15.5) Hematocrit 30.0 % (36.0-47.0) Mean Corpuscular Volume 70 fL (79-100) Mean Corpuscular Hemoglobin 21 pg (25-35) Mean Corpuscular Hemoglobin Concent 30 g/dL (31-37) Red Cell Distribution Width 20.3 % (11.5-14.5) Platelet Count 550 x10^3/uL (140-400) Neutrophils (%) (Auto) 91 % (31-73) Lymphocytes (%) (Auto) 5 % (24-48) Monocytes (%) (Auto) 3 % (0-9) Eosinophils (%) (Auto) 0 % (0-3) Basophils (%) (Auto) 1 % (0-3) Neutrophils # (Auto) 14.8 x10^3/uL (1.8-7.7) Lymphocytes # (Auto) 0.9 x10^3/uL (1.0-4.8) Monocytes # (Auto) 0.5 x10^3/uL (0.0-1.1) Eosinophils # (Auto) 0.0 x10^3/uL (0.0-0.7) Basophils # (Auto) 0.1 x10^3/uL (0.0-0.2) Segmented Neutrophils % 65 % (35-66) Band Neutrophils % 26 % (0-9) Lymphocytes % 4 % (24-48) Monocytes % 3 % (0-10) Metamyelocytes % 2 % (0-0) Platelet Estimate Increased (ADEQUATE) Anisocytosis Mod Microcytosis Present Sodium Level 145 mmol/L (136-145) Potassium Level 3.9 mmol/L (3.5-5.1) Chloride Level 102 mmol/L (98-107) Carbon Dioxide Level 19 mmol/L (21-32) Anion Gap 24 (6-14) Blood Urea Nitrogen 17 mg/dL (7-20) Creatinine 2.3 mg/dL (0.6-1.0) Estimated GFR (Cockcroft-Gault) 21.7 BUN/Creatinine Ratio 7 (6-20) Glucose Level 91 mg/dL (70-99) Lactic Acid Level 13.4 mmol/L (0.4-2.0) Calcium Level 9.6 mg/dL (8.5-10.1) Magnesium Level 3.2 mg/dL (1.8-2.4) Total Bilirubin 0.2 mg/dL (0.2-1.0) Aspartate Amino Transf (AST/SGOT) 41 U/L (15-37) Alanine Aminotransferase (ALT/SGPT) 29 U/L (14-59) Alkaline Phosphatase 139 U/L (46-116) Ammonia 34 mcmol/L (11-34) Creatine Kinase 1556 U/L (26-192) Troponin I High Sensitivity 19 ng/L (4-50) Total Protein 8.3 g/dL (6.4-8.2) Albumin 3.8 g/dL (3.4-5.0) Albumin/Globulin Ratio 0.8 (1.0-1.7) Ethyl Alcohol Level < 10 mg/dL (0-10) SARS-CoV-2 Antigen (Rapid) Negative (NEGATIVE) O2 Saturation 84 % (92-99) Arterial Blood pH 7.34 (7.35-7.45) Arterial Blood pCO2 at Patient Temp 35 mmHg (35-46) Arterial Blood pO2 at Patient Temp 55 mmHg (65-108) Arterial Blood HCO3 19 mmol/L (21-28) Arterial Blood Base Excess -7 mmol/L (-3-3) FiO2 21% room air Glucose (Fingerstick) 83 mg/dL (70-99) Test 06/02/21 12:22 06/02/21 16:23 06/02/21 17:40 Urine Collection Type U cath Urine Color Yellow Urine Clarity Clear Urine pH 6.0 (<5.0-8.0) Urine Specific [place] >=1.030 (1.000-1.030) Urine Protein 100 mg/dL (NEG-TRACE) Urine Glucose (UA) Negative mg/dL (NEG) Urine Ketones (Stick) Negative mg/dL (NEG) Urine Blood Large (NEG) Urine Nitrite Negative (NEG) Urine Bilirubin Negative (NEG) Urine Urobilinogen Dipstick 0.2 mg/dL (0.2 mg/dL) Urine Leukocyte Esterase Negative (NEG) Urine RBC 3-5 /HPF (0-2) Urine WBC Occ /HPF (0-4) Urine Squamous Epithelial Cells Occ /LPF Urine Bacteria Few /HPF (0-FEW) Urine Hyaline Casts Few /HPF Urine Mucus Marked /LPF Urine Opiates Screen Neg (NEG) Urine Methadone Screen Neg (NEG) Urine Barbiturates Neg (NEG) Urine Phencyclidine Screen Neg (NEG) Urine Amphetamine/Methamphetamine Neg (NEG) Urine Benzodiazepines Screen Pos (NEG) Urine Cocaine Screen Pos (NEG) Urine Cannabinoids Screen Neg (NEG) Urine Ethyl Alcohol Neg (NEG) Glucose (Fingerstick) 95 mg/dL (70-99) Lactic Acid Level 1.8 mmol/L (0.4-2.0) Images Images CT Head without contrast 06/02/2021 12:54 PM Indication: Altered mental status, weakness, seizure Comparison: CT head without contrast every 2021 Findings: No intracranial hemorrhage is seen. No evidence of acute territorial infarct is seen. Note that CT is limited in sensitivity for acute ischemia. Age-related atrophic changes are noted. There is patchy periventricular and deep white matter hypoattenuation which is nonspecific, but most commonly relates to chronic small vessel disease. No abnormal extra axial fluid collection is identified. No mass effect or midline shift is seen. There is a partially visualized fluid level in the right maxillary sinus. Correlate with evidence of sinusitis. No acute osseous abnormalities are seen. Impression: 1. No acute intracranial process identified 2. Age-related atrophy, and evidence of chronic small vessel disease as described 3. Fluid level within the partially visualized right maxillary sinus. Correlate with clinical evidence of sinusitis. Assessment/Plan Assessment/Plan Impression: Seizures related to alcohol, also has cocaine and benzodiazepines in her system, had opiates in her system last week. Recommendations: Alcohol withdrawal protocol Levetiracetam Holding on electroencephalogram, MRI of the brain, and I do not believe she needs a lumbar puncture Thank you for letting me help with the patient's care. LISA BLOCK MD Jun 03, 2021 08:43
[2021-06-03] MEDS ORDERED: MULTIVIT INFUSN,ADULT 4,VIT K 10 ML, THIAMINE INJ 100 MG, FOLIC ACID INJ 1 MG in IV NOR... IV SCH (09:00)
[2021-06-03] MEDS ORDERED: VANCOMYCIN 1.75 GM in IV NORMAL SALINE 500ML BAG 500 ML IV ONE (09:30)
[2021-06-03] MEDS: SUCRALFATE 1 GM TABLET. PO SCH ×4 (10:00→19:29)
[2021-06-03] MEDS: MULTIVIT INFUSN,ADULT 4,VIT K 10 ML, THIAMINE INJ 100 MG, FOLIC ACID INJ 1 MG in IV NOR... IV SCH (10:19)
[2021-06-03 10:30] LABS: CALCIUM 8.5 mg/dL (8.5-10.1); CREATININE 0.9 mg/dL (0.6-1.0); GFR 64.1; POTASSIUM 3.8 mmol/L (3.5-5.1)
[2021-06-03 11:00] VITALS: BP 144/79
--- NOTE | 2021-06-03 11:06 | PDOC ---
[employer] PROGRESS NOTE Date of Service DOS: DATE: 06/03/21 TIME: 11:04 Chief Complaint Chief Complaint Seizure activity Alcohol withdrawal Cocaine abuse Probable aspiration pneumonia Leukocytosis JOSE History of Present Illness History of Present Illness 06/04/2019 Patient seen and examined She is extremely groggy but did open her eyes trying to mumble a word or 2 Discussed with her RN Discussed with case management Chart reviewed Vitals/I&O Vitals/I&O: Vital Signs Date Time Temp Pulse Resp B/P (MAP) Pulse Ox O2 Delivery O2 Flow Rate FiO2 06/03/21 07:00 98.2 104 20 147/80 (102) 91 Nasal Cannula 98.2 06/02/21 20:00 2.0 I & O 06/02/21 06/02/21 06/03/21 15:00 23:00 07:00 Intake Total 2050 ml Output Total 300 ml 650 ml Balance 2050 ml -300 ml -650 ml Physical Exam General: No acute distress, Other Heart: Regular rate Lungs: Crackles Extremities: No clubbing Skin: No rashes Labs Labs: Laboratory Tests Test 06/02/21 11:27 06/02/21 11:28 06/02/21 11:49 06/02/21 12:00 White Blood Count 16.2 x10^3/uL (4.0-11.0) Red Blood Count 4.19 x10^6/uL (3.50-5.40) Hemoglobin 8.8 g/dL (12.0-15.5) Hematocrit 30.0 % (36.0-47.0) Mean Corpuscular Volume 70 fL (79-100) Mean Corpuscular Hemoglobin 21 pg (25-35) Mean Corpuscular Hemoglobin Concent 30 g/dL (31-37) Red Cell Distribution Width 20.3 % (11.5-14.5) Platelet Count 550 x10^3/uL (140-400) Neutrophils (%) (Auto) 91 % (31-73) Lymphocytes (%) (Auto) 5 % (24-48) Monocytes (%) (Auto) 3 % (0-9) Eosinophils (%) (Auto) 0 % (0-3) Basophils (%) (Auto) 1 % (0-3) Neutrophils # (Auto) 14.8 x10^3/uL (1.8-7.7) Lymphocytes # (Auto) 0.9 x10^3/uL (1.0-4.8) Monocytes # (Auto) 0.5 x10^3/uL (0.0-1.1) Eosinophils # (Auto) 0.0 x10^3/uL (0.0-0.7) Basophils # (Auto) 0.1 x10^3/uL (0.0-0.2) Segmented Neutrophils % 65 % (35-66) Band Neutrophils % 26 % (0-9) Lymphocytes % 4 % (24-48) Monocytes % 3 % (0-10) Metamyelocytes % 2 % (0-0) Platelet Estimate Increased (ADEQUATE) Anisocytosis Mod Microcytosis Present Sodium Level 145 mmol/L (136-145) Potassium Level 3.9 mmol/L (3.5-5.1) Chloride Level 102 mmol/L (98-107) Carbon Dioxide Level 19 mmol/L (21-32) Anion Gap 24 (6-14) Blood Urea Nitrogen 17 mg/dL (7-20) Creatinine 2.3 mg/dL (0.6-1.0) Estimated GFR (Cockcroft-Gault) 21.7 BUN/Creatinine Ratio 7 (6-20) Glucose Level 91 mg/dL (70-99) Lactic Acid Level 13.4 mmol/L (0.4-2.0) Calcium Level 9.6 mg/dL (8.5-10.1) Magnesium Level 3.2 mg/dL (1.8-2.4) Total Bilirubin 0.2 mg/dL (0.2-1.0) Aspartate Amino Transf (AST/SGOT) 41 U/L (15-37) Alanine Aminotransferase (ALT/SGPT) 29 U/L (14-59) Alkaline Phosphatase 139 U/L (46-116) Ammonia 34 mcmol/L (11-34) Creatine Kinase 1556 U/L (26-192) Troponin I High Sensitivity 19 ng/L (4-50) Total Protein 8.3 g/dL (6.4-8.2) Albumin 3.8 g/dL (3.4-5.0) Albumin/Globulin Ratio 0.8 (1.0-1.7) Ethyl Alcohol Level < 10 mg/dL (0-10) SARS-CoV-2 Antigen (Rapid) Negative (NEGATIVE) O2 Saturation 84 % (92-99) Arterial Blood pH 7.34 (7.35-7.45) Arterial Blood pCO2 at Patient Temp 35 mmHg (35-46) Arterial Blood pO2 at Patient Temp 55 mmHg (65-108) Arterial Blood HCO3 19 mmol/L (21-28) Arterial Blood Base Excess -7 mmol/L (-3-3) FiO2 21% room air Glucose (Fingerstick) 83 mg/dL (70-99) Test 06/02/21 12:22 06/02/21 16:23 06/02/21 17:40 06/03/21 10:05 Urine Collection Type U cath Urine Color Yellow Urine Clarity Clear Urine pH 6.0 (<5.0-8.0) Urine Specific [place] >=1.030 (1.000-1.030) Urine Protein 100 mg/dL (NEG-TRACE) Urine Glucose (UA) Negative mg/dL (NEG) Urine Ketones (Stick) Negative mg/dL (NEG) Urine Blood Large (NEG) Urine Nitrite Negative (NEG) Urine Bilirubin Negative (NEG) Urine Urobilinogen Dipstick 0.2 mg/dL (0.2 mg/dL) Urine Leukocyte Esterase Negative (NEG) Urine RBC 3-5 /HPF (0-2) Urine WBC Occ /HPF (0-4) Urine Squamous Epithelial Cells Occ /LPF Urine Bacteria Few /HPF (0-FEW) Urine Hyaline Casts Few /HPF Urine Mucus Marked /LPF Urine Opiates Screen Neg (NEG) Urine Methadone Screen Neg (NEG) Urine Barbiturates Neg (NEG) Urine Phencyclidine Screen Neg (NEG) Urine Amphetamine/Methamphetamine Neg (NEG) Urine Benzodiazepines Screen Pos (NEG) Urine Cocaine Screen Pos (NEG) Urine Cannabinoids Screen Neg (NEG) Urine Ethyl Alcohol Neg (NEG) Glucose (Fingerstick) 95 mg/dL (70-99) Lactic Acid Level 1.8 mmol/L (0.4-2.0) Sodium Level 141 mmol/L (136-145) Potassium Level 3.8 mmol/L (3.5-5.1) Chloride Level 107 mmol/L (98-107) Carbon Dioxide Level 21 mmol/L (21-32) Anion Gap 13 (6-14) Blood Urea Nitrogen 14 mg/dL (7-20) Creatinine 0.9 mg/dL (0.6-1.0) Estimated GFR (Cockcroft-Gault) 64.1 Glucose Level 84 mg/dL (70-99) Calcium Level 8.5 mg/dL (8.5-10.1) Assessment and Plan Assessmemt and Plan Problems Medical Problems: (1) Acute kidney injury Status: Acute (2) Alcohol withdrawal Status: Acute (3) Aspiration pneumonitis Status: Acute (4) Hypothermia Status: Acute (5) Lactic acidosis Status: Acute (6) Rhabdomyolysis Status: Acute (7) Seizure-like activity Status: Acute (8) Sepsis Status: Acut Seizure activity Alcohol withdrawal Cocaine abuse Probable aspiration pneumonia Leukocytosis JOSE Plan We have started IV Keppra Consult neurology I resumed IV Zosyn Seizure precautions As needed Ativan Banana bag daily IV fluids Home meds DVT prophylaxis Full code Trend labs Comment Review of Relevant I have reviewed the following items addison (where applicable) has been applied. Medications: Current Medications Medications (Trade) Dose Ordered Sig/Rony Route PRN Reason Start Time Stop Time Status Last Admin Dose Admin Sodium Chloride 1,000 ml @ 1,000 mls/hr 1X ONCE IV 06/02/21 11:30 06/02/21 12:29 DC 06/02/21 11:35 Sodium Chloride 1,000 ml @ 1,000 mls/hr 1X ONCE IV 06/02/21 11:30 06/02/21 12:29 DC 06/02/21 11:35 Naloxone HCl (Narcan) 0.4 mg 1X ONCE IV 06/02/21 11:45 06/02/21 11:46 DC 06/02/21 12:09 Piperacillin Sod/ Tazobactam Sod 3.375 gm/Sodium Chloride 50 ml @ 100 mls/hr 1X ONCE IV 06/02/21 12:30 06/02/21 12:59 DC 06/02/21 12:47 Dextrose/Sodium Chloride 1,000 ml @ 125 mls/hr 1X ONCE IV 06/02/21 16:00 06/03/21 00:00 DC 06/02/21 16:20 Multivitamins 10 ml/Thiamine HCl 100 mg/Folic Acid 1 mg/Sodium Chloride 1,011.2 ml @ 100 mls/ hr DAILY IV 06/02/21 15:30 06/06/21 19:07 06/03/21 10:19 Lorazepam (Ativan Inj) 2 mg PRN Q1HR PRN IV For CIWA 8-14 06/02/21 15:00 06/03/21 05:31 Sodium Chloride 1,000 ml @ 100 mls/hr 1X ONCE IV 06/02/21 16:00 06/03/21 01:59 DC 06/02/21 21:30 Ampicillin Sodium/ Sulbactam Sodium 3 gm/Dextrose 100 ml @ 200 mls/hr Q6HRS IV 06/02/21 18:00 06/03/21 00:22 DC 06/02/21 21:31 Levetiracetam 100 ml @ 400 mls/hr Q12HR IV 06/02/21 21:00 06/03/21 10:14 Morphine Sulfate (Morphine Sulfate) 2 mg PRN Q2HR PRN IVP PAIN 06/02/21 23:30 06/03/21 02:12 Piperacillin Sod/ Tazobactam Sod 3.375 gm/Sodium Chloride 50 ml @ 100 mls/hr Q6HRS IV 06/03/21 01:00 06/03/21 09:14 Vancomycin HCl 1.75 gm/Sodium Chloride 500 ml @ 250 mls/hr 1X ONCE IV 06/03/21 09:30 06/03/21 11:29 06/03/21 10:20 Justifications for Admission Other Justification BONITA FRANK III DO Jun 03, 2021 11:06
--- NOTE | 2021-06-03 12:53 | NUR ---
SW following. Discussed with RN, pt from home with , 2L (does not use oxygen at home), NPO, rapid COVID-19 negative. Neurology following. Pt withdrawing. Med Assist following for self pay status. SW will continue to follow.
[2021-06-03 15:00] VITALS: BP 151/88
[2021-06-03] MEDS: VANCOMYCIN PER PHARMACY MC PRN (17:18)
--- NOTE | 2021-06-03 17:23 | NUR ---
Pharmacy Vancomycin Dosing Note S:Consulted to monitor and dose vancomycin started 06/03/21. O:POOJA COLLINS is a 60 year old F with Bacteremia, Pneumonia . Height: 5 feet, 4 inches Weight: 70.1 kg Upper Tract Body Weight: 192.70 Adjusted Body Weight: 143.66 Dosing Weight: Actual Other Antibiotics: ZOSYN LABS: Last BUN: 14 Last Creatinine: 0.9 Creatinine Clearance: 65 mL/min Last WBC: 16.2 Last Procalcitonin: Tmax (past 24 hours): 99.6 Microbiology: Blood: GPC in 2/3 bottles I/O: Drug Levels: Last level: on at Last dose given 06/03/21 at 1020 Vancomycin Dosing: Loading Dose: 1750 mg x1 Dosing Weight: Actual Target Trough: 15-20 A: Based on: weight and renal function P: 1. Begin Vancomycin 1000 mg IV q12h 2. Follow up Trough level on 06/04/21 at 2130 3. Pharmacy will continue to monitor, follow and adjust therapy as needed. Melinda Gomez [facility], 06/03/21 [id number]
--- NOTE | 2021-06-03 17:34 | NUR ---
Patients Gustavo Castro has been to see patient, left ph# on board, as pt was sleeping. His # is [phone]. Daughter Ghislaine Morrison has called x 2 to check on patient, (in [place], phone # [phone])
[2021-06-03 19:00] VITALS: BP 159/90
[2021-06-03] MEDS: VANCOMYCIN 1 GM in IV NORMAL SALINE 250ML 250 ML IV SCH (22:00)
[2021-06-03 22:40] VITALS: BP 142/81
[2021-06-04 03:08] VITALS: BP 148/72
[2021-06-04] MEDS: PIPERACILLIN/TAZOBACTAM 3.375 GM in IV NORMAL SALINE 50ML 50 ML IV SCH ×3 (05:50→18:15)
[2021-06-04 07:00] VITALS: BP 149/81
[2021-06-04 07:46] LABS: CALCIUM 8.7 mg/dL (8.5-10.1); CREATININE 0.8 mg/dL (0.6-1.0); GFR 73.4; POTASSIUM 3.6 mmol/L (3.5-5.1)
--- NOTE | 2021-06-04 09:02 | PDOC ---
[facility] [facility] PROGRESS NOTE Date of Service DOS: DATE: 06/04/21 TIME: 09:00 Chief Complaint Chief Complaint Seizure activity Alcohol withdrawal Cocaine abuse Probable aspiration pneumonia Leukocytosis JOSE History of Present Illness History of Present Illness 06/04/2021 Patient seen and examined Discussed with RN Chart reviewed Patient is still pleasantly confused Cannot talk Does not know what year it is On IV banana bag Has IV antibiotics hanging 06/04/2019 Patient seen and examined She is extremely groggy but did open her eyes trying to mumble a word or 2 Discussed with her RN Discussed with case management Chart reviewed Vitals/I&O Vitals/I&O: Vital Signs Date Time Temp Pulse Resp B/P (MAP) Pulse Ox O2 Delivery O2 Flow Rate FiO2 06/04/21 07:00 97.7 107 20 149/81 (103) 94 Nasal Cannula 2.0 97.7 I & O 06/03/21 06/03/21 06/04/21 15:00 23:00 07:00 Intake Total 650 ml Output Total 1250 ml Balance 650 ml -1250 ml Physical Exam General: No acute distress, Other (Pleasantly confused) Heart: Regular rate Lungs: Crackles Extremities: No clubbing Skin: No rashes Labs Labs: Laboratory Tests Test 06/03/21 10:05 06/04/21 05:30 Sodium Level 141 mmol/L (136-145) 136 mmol/L (136-145) Potassium Level 3.8 mmol/L (3.5-5.1) 3.6 mmol/L (3.5-5.1) Chloride Level 107 mmol/L (98-107) 102 mmol/L (98-107) Carbon Dioxide Level 21 mmol/L (21-32) 18 mmol/L (21-32) Anion Gap 13 (6-14) 16 (6-14) Blood Urea Nitrogen 14 mg/dL (7-20) 11 mg/dL (7-20) Creatinine 0.9 mg/dL (0.6-1.0) 0.8 mg/dL (0.6-1.0) Estimated GFR (Cockcroft-Gault) 64.1 73.4 Glucose Level 84 mg/dL (70-99) 54 mg/dL (70-99) Calcium Level 8.5 mg/dL (8.5-10.1) 8.7 mg/dL (8.5-10.1) Assessment and Plan Assessmemt and Plan Problems Medical Problems: (1) Acute kidney injury Status: Acute (2) Alcohol withdrawal Status: Acute (3) Aspiration pneumonitis Status: Acute (4) Hypothermia Status: Acute (5) Lactic acidosis Status: Acute (6) Rhabdomyolysis Status: Acute (7) Seizure-like activity Status: Acute (8) Sepsis Status: Acute Seizure activity Alcohol withdrawal Cocaine abuse Probable aspiration pneumonia Leukocytosis JOSE Plan IV Keppra Seizure precautions IV Zosyn Banana bag Seizure precautions As needed Ativan IV fluids Home meds DVT prophylaxis Full code Trend labs Comment Review of Relevant I have reviewed the following items addison (where applicable) has been applied. Medications: Current Medications Medications (Trade) Dose Ordered Sig/Rony Route PRN Reason Start Time Stop Time Status Last Admin Dose Admin Vancomycin HCl (Vanco Per Pharmacy) 1 each PRN DAILY PRN MC SEE COMMENTS 06/03/21 09:15 06/03/21 17:18 Vancomycin HCl 1.75 gm/Sodium Chloride 500 ml @ 250 mls/hr 1X ONCE IV 06/03/21 09:30 06/03/21 11:29 DC 06/03/21 10:20 Vancomycin HCl 1 gm/Sodium Chloride 250 ml @ 250 mls/hr Q12H IV 06/03/21 22:00 06/03/21 22:00 Justifications for Admission Other Justification BONITA FRANK III DO Jun 04, 2021 09:01
[2021-06-04] MEDS: SUCRALFATE 1 GM TABLET. PO SCH ×4 (10:00→21:38)
--- NOTE | 2021-06-04 10:58 | RAD ---
XR RT SHOULDER 1 VIEW Clinical Indication: Reason: swollen soft tissue anterior shouder, arm pain / Spl. Instructions: / History: Comparison: None. Findings: There is acute traumatic fracture of the surgical neck of the proximal humerus. On single view there is no significant displacement. There is no shoulder dislocation. There are interstitial opacities of the right lung. Question soft tissue swelling about the right shoulder. IMPRESSION: Acute traumatic fracture of the proximal humerus. Electronically signed by: Puma Valerio MD (06/04/2021 10:56 AM) [id number]
[2021-06-04 11:00] VITALS: BP 138/85
--- NOTE | 2021-06-04 12:00 | PDOC ---
PROGRESS NOTES Date of Service DATE: 06/04/21 TIME: 11:57 Assessment Problems Medical Problems: (1) Acute kidney injury Status: Acute (2) Alcohol withdrawal Status: Acute (3) Aspiration pneumonitis Status: Acute (4) Hypothermia Status: Acute (5) Lactic acidosis Status: Acute (6) Rhabdomyolysis Status: Acute (7) Seizure-like activity Status: Acute (8) Sepsis Status: Acute Seizures related to alcohol, also has cocaine and benzodiazepines in her system, had opiates in her system last week. Toxic encephalopathy, improving I ordered speech therapy, results already back, Dysphagia II diet w/ honey thick liquids. 1:1 asst. w/ all PO intake. 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 Plan Alcohol withdrawal protocol Levetiracetam Holding on electroencephalogram, MRI of the brain, and I do not believe she needs a lumbar puncture Subjective Denies pain Objective Vital Signs Date Time Temp Pulse Resp B/P (MAP) Pulse Ox O2 Delivery O2 Flow Rate FiO2 06/04/21 11:00 98.7 117 18 138/85 (102) 98 Nasal Cannula 2.0 98.7 Intake and Output 06/04/21 07:00 Intake Total 650 ml Output Total 1250 ml Balance -600 ml Intake IV Total 650 ml Output Urine Total 1250 ml PHYSICAL EXAM Still sleepy, awakes easily, tells me her name, knows she is in the hospital but does not know its name, follows commands, does not know the date PERRL. EOMI. CN: no focal findings. Muscle tone: normal. Muscle strength: 4/5 DTR: 2+ Plantar reflex: Flexor Gait: not examined in bed. Sensory exam: no abnormal findings. No cerebellar signs elicited. Review of Relevant I have reviewed the following items addison (where applicable) has been applied. Labs Laboratory Tests Test 06/02/21 12:00 06/02/21 12:22 06/02/21 16:23 06/02/21 17:40 Glucose (Fingerstick) 83 mg/dL (70-99) 95 mg/dL (70-99) Urine Collection Type U cath Urine Color Yellow Urine Clarity Clear Urine pH 6.0 (<5.0-8.0) Urine Specific [place] >=1.030 (1.000-1.030) Urine Protein 100 mg/dL (NEG-TRACE) Urine Glucose (UA) Negative mg/dL (NEG) Urine Ketones (Stick) Negative mg/dL (NEG) Urine Blood Large (NEG) Urine Nitrite Negative (NEG) Urine Bilirubin Negative (NEG) Urine Urobilinogen Dipstick 0.2 mg/dL (0.2 mg/dL) Urine Leukocyte Esterase Negative (NEG) Urine RBC 3-5 /HPF (0-2) Urine WBC Occ /HPF (0-4) Urine Squamous Epithelial Cells Occ /LPF Urine Bacteria Few /HPF (0-FEW) Urine Hyaline Casts Few /HPF Urine Mucus Marked /LPF Urine Opiates Screen Neg (NEG) Urine Methadone Screen Neg (NEG) Urine Barbiturates Neg (NEG) Urine Phencyclidine Screen Neg (NEG) Urine Amphetamine/Methamphetamine Neg (NEG) Urine Benzodiazepines Screen Pos (NEG) Urine Cocaine Screen Pos (NEG) Urine Cannabinoids Screen Neg (NEG) Urine Ethyl Alcohol Neg (NEG) Lactic Acid Level 1.8 mmol/L (0.4-2.0) Test 06/03/21 10:05 06/04/21 05:30 Sodium Level 141 mmol/L (136-145) 136 mmol/L (136-145) Potassium Level 3.8 mmol/L (3.5-5.1) 3.6 mmol/L (3.5-5.1) Chloride Level 107 mmol/L (98-107) 102 mmol/L (98-107) Carbon Dioxide Level 21 mmol/L (21-32) 18 mmol/L (21-32) Anion Gap 13 (6-14) 16 (6-14) Blood Urea Nitrogen 14 mg/dL (7-20) 11 mg/dL (7-20) Creatinine 0.9 mg/dL (0.6-1.0) 0.8 mg/dL (0.6-1.0) Estimated GFR (Cockcroft-Gault) 64.1 73.4 Glucose Level 84 mg/dL (70-99) 54 mg/dL (70-99) Calcium Level 8.5 mg/dL (8.5-10.1) 8.7 mg/dL (8.5-10.1) Laboratory Tests Test 06/04/21 05:30 Sodium Level 136 mmol/L (136-145) Potassium Level 3.6 mmol/L (3.5-5.1) Chloride Level 102 mmol/L (98-107) Carbon Dioxide Level 18 mmol/L (21-32) Anion Gap 16 (6-14) Blood Urea Nitrogen 11 mg/dL (7-20) Creatinine 0.8 mg/dL (0.6-1.0) Estimated GFR (Cockcroft-Gault) 73.4 Glucose Level 54 mg/dL (70-99) Calcium Level 8.7 mg/dL (8.5-10.1) Microbiology 06/02/21 Blood Culture - Preliminary, Resulted NO GROWTH AFTER 1 DAY Medications Current Medications Sodium Chloride 1,000 ml @ 1,000 mls/hr 1X ONCE IV Last administered on 06/02/21at 11:35; Start 06/02/21 at 11:30; Stop 06/02/21 at 12:29; Status DC Sodium Chloride 1,000 ml @ 1,000 mls/hr 1X ONCE IV Last administered on at 11:35; Start 06/02/21 at 11:30; Stop 06/02/21 at 12:29; Status DC Naloxone HCl (Narcan) 0.4 mg 1X ONCE IV Last administered on 06/02/21at 12:09; Start 06/02/21 at 11:45; Stop 06/02/21 at 11:46; Status DC Piperacillin Sod/ Tazobactam Sod 3.375 gm/Sodium Chloride 50 ml @ 100 mls/hr 1X ONCE IV Last administered on 06/02/21at 12:47; Start 06/02/21 at 12:30; Stop 06/02/21 at 12:59; Status DC Ondansetron HCl (Zofran) 4 mg PRN Q8HRS PRN IVP NAUSEA/VOMITING; Start 06/02/21 at 15:00; Stop 06/03/21 at 14:59; Status DC Dextrose/Sodium Chloride 1,000 ml @ 125 mls/hr 1X ONCE IV Last administered on 06/02/21at 16:20; Start 06/02/21 at 16:00; Stop 06/03/21 at 00:00; Status DC Multivitamins 10 ml/Thiamine HCl 100 mg/Folic Acid 1 mg/Sodium Chloride 1,011.2 ml @ 100 mls/ hr DAILY IV Last administered on 06/03/21at 10:19; Start 06/02/21 at 15:30; Stop 06/06/21 at 19:07 Folic Acid (Folic Acid) 1 mg DAILY PO ; Start 06/07/21 at 09:00 Thiamine Mononitrate (Vitamin B-1) 100 mg DAILY PO ; Start 06/07/21 at 09:00 Lorazepam (Ativan Inj) 2 mg PRN Q1HR PRN IV For CIWA 8-14 Last administered on 06/04/21at 04:30; Start 06/02/21 at 15:00 Lorazepam (Ativan Inj) 4 mg PRN Q1HR PRN IV For CIWA 15 or greater; Start 06/02/21 at 15:00 Lorazepam (Ativan Inj) 2 mg PRN Q15MIN PRN IV SEE COMMENTS; Start 06/02/21 at 15:00 Lorazepam (Ativan Inj) 4 mg PRN Q15MIN PRN IV SEE COMMENTS; Start 06/02/21 at 15:00 Sodium Chloride 1,000 ml @ 100 mls/hr 1X ONCE IV Last administered on 06/02/21at 21:30; Start 06/02/21 at 16:00; Stop 06/03/21 at 01:59; Status DC Ampicillin Sodium/ Sulbactam Sodium 3 gm/Dextrose 100 ml @ 200 mls/hr Q6HRS IV Last administered on 06/02/21at 21:31; Start 06/02/21 at 18:00; Stop 06/03/21 at 00:22; Status DC Multivitamins 10 ml/Thiamine HCl 100 mg/Folic Acid 1 mg/Sodium Chloride 1,011.2 ml @ 100 mls/ hr DAILY IV ; Start 06/03/21 at 09:00; Stop 06/07/21 at 19:07; Status UNV Multivitamins (Thera M Plus) 1 tab DAILY PO ; Start 06/07/21 at 09:00; Status UNV Folic Acid (Folic Acid) 1 mg DAILY PO ; Start 06/07/21 at 09:00; Status UNV Thiamine Mononitrate (Vitamin B-1) 100 mg DAILY PO ; Start 06/07/21 at 09:00; Status UNV Lorazepam (Ativan Inj) 2 mg PRN Q1HR PRN IV For CIWA 8-14; Start 06/02/21 at 16:00; Status UNV Lorazepam (Ativan Inj) 4 mg PRN Q1HR PRN IV For CIWA 15 or greater; Start 06/02/21 at 16:00; Status UNV Levetiracetam 100 ml @ 400 mls/hr Q12HR IV Last administered on 06/04/21at 08:39; Start 06/02/21 at 21:00 Morphine Sulfate (Morphine Sulfate) 2 mg PRN Q2HR PRN IVP PAIN Last administered on 06/03/21at 19:57; Start 06/02/21 at 23:30 Piperacillin Sod/ Tazobactam Sod (Zosyn Per Pharmacy) 1 each PRN DAILY PRN MC SEE COMMENTS; Start 06/03/21 at 00:15 Sucralfate (Carafate) 1 gm QIDPMEDS PO ; Start 06/03/21 at 10:00 Piperacillin Sod/ Tazobactam Sod 3.375 gm/Sodium Chloride 50 ml @ 100 mls/hr Q 6HRS IV Last administered on 06/04/21at 05:50; Start 06/03/21 at 01:00 Vancomycin HCl (Vanco Per Pharmacy) 1 each PRN DAILY PRN MC SEE COMMENTS Last administered on 06/03/21at 17:18; Start 06/03/21 at 09:15 Vancomycin HCl 1.75 gm/Sodium Chloride 500 ml @ 250 mls/hr 1X ONCE IV Last administered on 06/03/21at 10:20; Start 06/03/21 at 09:30; Stop 06/03/21 at 11:29; Status DC Piperacillin Sod/ Tazobactam Sod (Zosyn Per Pharmacy) 1 each PRN DAILY PRN MC SEE COMMENTS; Start 06/03/21 at 11:15; Status UNV Vancomycin HCl 1 gm/Sodium Chloride 250 ml @ 250 mls/hr Q12H IV Last administered on 06/03/21at 22:00; Start 06/03/21 at 22:00 Vancomycin HCl (Vancomycin Trough Level) 1 each 1X ONCE MC ; Start 06/04/21 at 21:30; Stop 06/04/21 at 21:31 Active Scripts Active Reported Sucralfate 1 Gm Tablet 1 Tab PO QID Cyclobenzaprine Hcl 10 Mg Tablet 1 Tab PO TID Gabapentin (Gabapentin) 300 Mg Capsule 300 Mg PO TID Lunesta (Eszopiclone) 3 Mg Tablet 1 Tab PO PRN QHS PRN MDD 1 Tablet(s) 30 Days Vitals/I & O Vital Sign - Last 24 Hours 06/03/21 06/03/21 06/03/21 06/03/21 15:00 19:00 20:00 22:40 Temp 97.8 97.8 98.6 97.8 97.8 98.6 Pulse 110 74 92 Resp 20 18 18 B/P (MAP) 151/88 (109) 159/90 (113) 142/81 (101) Pulse Ox 99 95 93 O2 Delivery Nasal Cannula Nasal Cannula Nasal Cannula Nasal Cannula O2 Flow Rate 2.0 2.0 2.0 06/04/21 06/04/21 06/04/21 03:08 07:00 11:00 Temp 98.1 97.7 98.7 98.1 97.7 98.7 Pulse 89 107 117 Resp 18 20 18 B/P (MAP) 148/72 (97) 149/81 (103) 138/85 (102) Pulse Ox 94 94 98 O2 Delivery Nasal Cannula Nasal Cannula Nasal Cannula O2 Flow Rate 2.0 2.0 2.0 Intake and Output 06/03/21 06/03/21 06/04/21 15:00 23:00 07:00 Intake Total 650 ml Output Total 1250 ml Balance 650 ml -1250 ml Justicifation of Admission Dx: Justifications for Admission: Justification of Admission Dx: Yes LISA BLOCK MD Jun 04, 2021 11:59
[2021-06-04] MEDS: MULTIVIT INFUSN,ADULT 4,VIT K 10 ML, THIAMINE INJ 100 MG, FOLIC ACID INJ 1 MG in IV NOR... IV SCH (12:37)
[2021-06-04] MEDS: VANCOMYCIN 1 GM in IV NORMAL SALINE 250ML 250 ML IV SCH ×2 (12:37→22:57)
[2021-06-04] MEDS: VANCOMYCIN PER PHARMACY MC PRN ×2 (14:08→22:28)
[2021-06-04] MEDS: MORPHINE SULFATE 2 MG/ML INJ. IVP PRN (14:21)
[2021-06-04 15:00] VITALS: BP 144/83
--- NOTE | 2021-06-04 15:00 | NUR ---
Patient significantly more oriented than this morning, which was more than yesterday. Patient has initiated some conversation, appears relaxed, watching tv. Patient and family have been informed of ortho consult. and daughter Magda in to visit with patient. No signs of seizure activity have been noted. Continues to have JUAQUIN. 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
[2021-06-04 19:00] VITALS: BP 149/81
--- NOTE | 2021-06-04 21:31 | NUR ---
Patient's Vanco trough 16.5.
[2021-06-04 22:03] LABS: VANC TR 16.5 mcg/mL (10.0-20.0)
--- NOTE | 2021-06-04 22:29 | NUR ---
Pharmacy Vancomycin Dosing Note S:Consulted to monitor and dose vancomycin started 06/03/21. O:POOJA COLLINS is a 60 year old F with Bacteremia Pneumonia . Height: 5 feet, 4 inches Weight: 71.0 kg Saxis Body Weight: 54.70 Adjusted Body Weight: 61.22 Dosing Weight: Actual Other Antibiotics: ZOSYN LABS: Last BUN: 11 Last Creatinine: 0.8 Creatinine Clearance: 73 mL/min Last WBC: 16.2 Last Procalcitonin: Tmax (past 24 hours): 98.1 Microbiology: Blood: STAPH AUREUS I/O: 650/1250 Drug Levels: Last Trough level: 16.5 on 06/04/21 at 2130 Last dose given 06/04/21 at 1237 Vancomycin Dosing: Loading Dose: 1750 mg x1 Dosing Weight: Actual Target Trough: 15-20 A: Based on: TROUGH P: 1. Continue Vancomycin 1000 mg IV q12h 2. Follow up Trough level IF NEEDED 3. Pharmacy will continue to monitor, follow and adjust therapy as needed. QUYNH MIRANDA RPH, [id number] Signed: 06/04/21 at 222 by QUYNH MIRANDA RPH PHA
[2021-06-04 23:08] VITALS: BP 144/83
[2021-06-05] MEDS: PIPERACILLIN/TAZOBACTAM 3.375 GM in IV NORMAL SALINE 50ML 50 ML IV SCH ×4 (00:38→18:09)
[2021-06-05] MEDS: MORPHINE SULFATE 2 MG/ML INJ. IVP PRN ×3 (00:38→12:26)
[2021-06-05 03:44] VITALS: BP 159/91
[2021-06-05 07:00] VITALS: BP 135/76
[2021-06-05 07:58] LABS: CALCIUM 8.6 mg/dL (8.5-10.1); CREATININE 0.6 mg/dL (0.6-1.0); GFR 102.3
--- NOTE | 2021-06-05 08:30 | EKG ---
[facility] [address] [place] [address] Test Date: 2021-06-02 Test Time: 11:51:43 Pat Name: POOJA COLLINS Department: Room: 534 Gender: F Manager Loss Prevention: : 1960 Requested By: BLANK ROMAN Order Number: [id number] Reading MD: Tremaine Nolasco Measurements Intervals [place] Rate: 107 P: 90 CA: 160 QRS: 62 QRSD: 72 T: 69 QT: 332 QTc: 449 Interpretive Statements SINUS TACHYCARDIA Electronically Signed On 06-05-2021 8:50:15 ACCOUNT INSTALLATION SPECIALIST by Tremaine Nolasco
--- NOTE | 2021-06-05 08:38 | PDOC2 ---
CONSULT Date of Consult Date of Consult DATE: 06/05/21 TIME: 08:27 Reason for Consult Reason for Consult: Right proximal humerus fracture Identification/Chief Complaint Chief Complaint Right shoulder pain/right humerus fracture History of Present Illness Reason for Visit: Patient reports that she has pain in her right shoulder but does not really know why. She says that she has been dieting recently and maybe she had a fall from that. The nurse reported that she was admitted for seizures and alcohol withdrawal and has had multiple falls. She was admitted 3 days ago and the staff noticed that she had swelling and bruising on her right shoulder so an x- ray was ordered yesterday that showed a right proximal humerus fracture. Orthopedics was consulted for evaluation and treatment of this injury. At this time patient reports pain in the shoulder but denies any numbness or tingling or radicular symptoms. Past Medical History Past Medical History Patient reports she has a history of anxiety and depression but is not being treated for that. She says that she does not know her medical history otherwise. Psych: Addictions Musculoskeletal: low back pain Past Surgical History Past Surgical History Patient reports Lasix surgery and left proximal humerus ORIF 15 years ago by unknown doctor Past Surgical History: No pertinent history Family History Family History [place] Social History Social History Patient reports that she smokes about a pack of cigarettes a week for approximately 10 years. She reports that she uses alcohol daily and quantifies that as 3-4 drinks. She denies any drug use. She is not working and says she is trying to get disability at this time. She lives at home with her . Current Problem List Problem List Problems Medical Problems: (1) Acute kidney injury Status: Acute (2) Alcohol withdrawal Status: Acute (3) Aspiration pneumonitis Status: Acute (4) Hypothermia Status: Acute (5) Lactic acidosis Status: Acute (6) Rhabdomyolysis Status: Acute (7) Seizure-like activity Status: Acute (8) Sepsis Status: Acute Current Medications Current Medications Patient reports home medications of gabapentin and Tylenol 3 Current Medications Sodium Chloride 1,000 ml @ 1,000 mls/hr 1X ONCE IV Last administered on 06/02/21at 11:35; Start 06/02/21 at 11:30; Stop 06/02/21 at 12:29; Status DC Sodium Chloride 1,000 ml @ 1,000 mls/hr 1X ONCE IV Last administered on 06/02/21at 11:35; Start 06/02/21 at 11:30; Stop 06/02/21 at 12:29; Status DC Naloxone HCl (Narcan) 0.4 mg 1X ONCE IV Last administered on 06/02/21at 12:09; Start 06/02/21 at 11:45; Stop 06/02/21 at 11:46; Status DC Piperacillin Sod/ Tazobactam Sod 3.375 gm/Sodium Chloride 50 ml @ 100 mls/hr 1X ONCE IV Last administered on 06/02/21at 12:47; Start 06/02/21 at 12:30; Stop 06/02/21 at 12:59; Status DC Ondansetron HCl (Zofran) 4 mg PRN Q8HRS PRN IVP NAUSEA/VOMITING; Start 06/02/21 at 15:00; Stop 06/03/21 at 14:59; Status DC Dextrose/Sodium Chloride 1,000 ml @ 125 mls/hr 1X ONCE IV Last administered on 06/02/21at 16:20; Start 06/02/21 at 16:00; Stop 06/03/21 at 00:00; Status DC Multivitamins 10 ml/Thiamine HCl 100 mg/Folic Acid 1 mg/Sodium Chloride 1,011.2 ml @ 100 mls/ hr DAILY IV Last administered on 06/04/21at 12:37; Start 06/02/21 at 15:30; Stop 06/06/21 at 19:07 Folic Acid (Folic Acid) 1 mg DAILY PO ; Start 06/07/21 at 09:00 Thiamine Mononitrate (Vitamin B-1) 100 mg DAILY PO ; Start 06/07/21 at 09:00 Lorazepam (Ativan Inj) 2 mg PRN Q1HR PRN IV For CIWA 8-14 Last administered on 06/04/21at 04:30; Start 06/02/21 at 15:00 Lorazepam (Ativan Inj) 4 mg PRN Q1HR PRN IV For CIWA 15 or greater; Start 06/02/21 at 15:00 Lorazepam (Ativan Inj) 2 mg PRN Q15MIN PRN IV SEE COMMENTS; Start 06/02/21 at 15:00; Stop 06/04/21 at 12:12; Status DC Lorazepam (Ativan Inj) 4 mg PRN Q15MIN PRN IV SEE COMMENTS; Start 06/02/21 at 15:00; Stop 06/04/21 at 12:12; Status DC Sodium Chloride 1,000 ml @ 100 mls/hr 1X ONCE IV Last administered on 06/02/21at 21:30; Start 06/02/21 at 16:00; Stop 06/03/21 at 01:59; Status DC Ampicillin Sodium/ Sulbactam Sodium 3 gm/Dextrose 100 ml @ 200 mls/hr Q6HRS IV Last administered on 06/02/21at 21:31; Start 06/02/21 at 18:00; Stop 06/03/21 at 0 0:22; Status DC Multivitamins 10 ml/Thiamine HCl 100 mg/Folic Acid 1 mg/Sodium Chloride 1,011.2 ml @ 100 mls/ hr DAILY IV ; Start 06/03/21 at 09:00; Stop 06/07/21 at 19:07; Status UNV Multivitamins (Thera M Plus) 1 tab DAILY PO ; Start 06/07/21 at 09:00; Status UNV Folic Acid (Folic Acid) 1 mg DAILY PO ; Start 06/07/21 at 09:00; Status UNV Thiamine Mononitrate (Vitamin B-1) 100 mg DAILY PO ; Start 06/07/21 at 09:00; Status UNV Lorazepam (Ativan Inj) 2 mg PRN Q1HR PRN IV For CIWA 8-14; Start 06/02/21 at 16:00; Status UNV Lorazepam (Ativan Inj) 4 mg PRN Q1HR PRN IV For CIWA 15 or greater; Start 06/02/21 at 16:00; Status UNV Levetiracetam 100 ml @ 400 mls/hr Q12HR IV Last administered on 06/04/21at 21:38; Start 06/02/21 at 21:00 Morphine Sulfate (Morphine Sulfate) 2 mg PRN Q2HR PRN IVP PAIN Last administered on 06/05/21at 00:38; Start 06/02/21 at 23:30 Piperacillin Sod/ Tazobactam Sod (Zosyn Per Pharmacy) 1 each PRN DAILY PRN MC SEE COMMENTS; Start 06/03/21 at 00:15 Sucralfate (Carafate) 1 gm QIDPMEDS PO Last administered on 06/04/21at 21:38; Start 06/03/21 at 10:00 Piperacillin Sod/ Tazobactam Sod 3.375 gm/Sodium Chloride 50 ml @ 100 mls/hr Q6HRS IV Last administered on 06/05/21at 06:20; Start 06/03/21 at 01:00 Vancomycin HCl (Vanco Per Pharmacy) 1 each PRN DAILY PRN MC SEE COMMENTS Last administered on 06/04/21at 22:28; Start 06/03/21 at 09:15 Vancomycin HCl 1.75 gm/Sodium Chloride 500 ml @ 250 mls/hr 1X ONCE IV Last administered on 06/03/21at 10:20; Start 06/03/21 at 09:30; Stop 06/03/21 at 11:29; Status DC Piperacillin Sod/ Tazobactam Sod (Zosyn Per Pharmacy) 1 each PRN DAILY PRN MC SEE COMMENTS; Start 06/03/21 at 11:15; Status UNV Vancomycin HCl 1 gm/Sodium Chloride 250 ml @ 250 mls/hr Q12H IV Last administered on 06/04/21at 22:57; Start 06/03/21 at 22:00 Vancomycin HCl (Vancomycin Trough Level) 1 each 1X ONCE MC ; Start 06/04/21 at 21:30; Stop 06/04/21 at 21:31; Status DC Active Scripts Active Reported Sucralfate 1 Gm Tablet 1 Tab PO QID Cyclobenzaprine Hcl 10 Mg Tablet 1 Tab PO TID Gabapentin (Gabapentin) 300 Mg Capsule 300 Mg PO TID Lunesta (Eszopiclone) 3 Mg Tablet 1 Tab PO PRN QHS PRN MDD 1 Tablet(s) 30 Days Allergies Allergies: Coded Allergies: No Known Drug Allergies (Unverified , 05/25/21) ROS Review of System Patient says that she does not know if she has had any head injury. She denies any blurry vision or double vision. She denies ringing in the ear or difficulty hearing. She says that she has a sore throat and has some difficulty swallowing. She denies any thyroid problems or diabetes. She denies any chest pain. She says that she does have shortness of breath and thinks it may have gotten worse in the last 2 months but she is not sure. She denies any abdominal pain. She is unsure whether or not she has had any diarrhea or constipation or any blood in the stools or urine. She says that she is unsure if she has any dysuria. She does have a history of anxiety and depression. Physical Exam Physical Exam Patient is seen sitting up in her hospital bed eating breakfast. She interacts with exam appropriately but seems confused by some questions. She is oriented x3. She is right-hand dominant. The right shoulder has intact skin. There is no erythema, warmth or induration. There is noted swelling and ecchymosis. There is tenderness palpation anywhere in the shoulder. Grossly, the shoulder appears reduced but it is difficult to tell with the amount of swelling that she has. Neurovascularly intact in the hand. Vitals VITALS Vital Signs Date Time Temp Pulse Resp B/P (MAP) Pulse Ox O2 Delivery O2 Flow Rate FiO2 06/05/21 03:44 98.1 103 18 159/91 (113) 97 Nasal Cannula 2.0 98.1 Labs Labs Laboratory Tests Test 06/03/21 10:05 06/04/21 05:30 06/04/21 21:30 06/05/21 06:55 Sodium Level 141 mmol/L (136-145) 136 mmol/L (136-145) 140 mmol/L (136-145) Potassium Level 3.8 mmol/L (3.5-5.1) 3.6 mmol/L (3.5-5.1) 3.0 mmol/L (3.5-5.1) Chloride Level 107 mmol/L (98-107) 102 mmol/L (98-107) 106 mmol/L (98-107) Carbon Dioxide Level 21 mmol/L (21-32) 18 mmol/L (21-32) 23 mmol/L (21-32) Anion Gap 13 (6-14) 16 (6-14) 11 (6-14) Blood Urea Nitrogen 14 mg/dL (7-20) 11 mg/dL (7-20) 6 mg/dL (7-20) Creatinine 0.9 mg/dL (0.6-1.0) 0.8 mg/dL (0.6-1.0) 0.6 mg/dL (0.6-1.0) Estimated GFR (Cockcroft-Gault) 64.1 73.4 102.3 Glucose Level 84 mg/dL (70-99) 54 mg/dL (70-99) 108 mg/dL (70-99) Calcium Level 8.5 mg/dL (8.5-10.1) 8.7 mg/dL (8.5-10.1) 8.6 mg/dL (8.5-10.1) Vancomycin Level Trough 16.5 mcg/mL (10.0-20.0) Vancomycin Last Dose Date Vancomycin Last Dose Time 1000 Laboratory Tests Test 06/04/21 21:30 06/05/21 06:55 Vancomycin Level Trough 16.5 mcg/mL (10.0-20.0) Vancomycin Last Dose Date Vancomycin Last Dose Time 1000 Sodium Level 140 mmol/L (136-145) Potassium Level 3.0 mmol/L (3.5-5.1) Chloride Level 106 mmol/L (98-107) Carbon Dioxide Level 23 mmol/L (21-32) Anion Gap 11 (6-14) Blood Urea Nitrogen 6 mg/dL (7-20) Creatinine 0.6 mg/dL (0.6-1.0) Estimated GFR (Cockcroft-Gault) 102.3 Glucose Level 108 mg/dL (70-99) Calcium Level 8.6 mg/dL (8.5-10.1) Images Images 1 view of the right shoulder was reviewed from her chart. Her chest images were also reviewed as well as her head CT. Assessment/Plan Assessment/Plan Right proximal humerus fracture age unknown but acute to subacute in nature closed Alcoholism with recent seizure/withdrawal Tobacco abuse Plan: We discussed that we will get at least 2 views of the right shoulder to ma ke sure that she has not had a dislocation given her seizure history and fracture. We will follow up on those x-rays to confirm the shoulder is reduced. We have ordered a sling for comfort to the right shoulder as well as ice for comfort. We will defer to internal medicine for pain management of the shoulder. She will be nonweightbearing on the right upper extremity and we will have therapy work with her as well. We will have her follow-up in our office in 1 to 2 weeks after discharge for follow-up on the right shoulder. I did discuss with her today the importance of flexion and extension of the elbow to prevent a contracture. Given her history and the alignment on the shoulder x-ray that was available, we will proceed with nonoperative treatment of this fracture. If the plan changes based on the new images ordered, we will be in touch with the nursing staff and her attending. Patient agrees with this plan. ROGELIO ANDUJAR Jun 05, 2021 08:38
[2021-06-05] MEDS: MULTIVIT INFUSN,ADULT 4,VIT K 10 ML, THIAMINE INJ 100 MG, FOLIC ACID INJ 1 MG in IV NOR... IV SCH (09:33)
[2021-06-05] MEDS: SUCRALFATE 1 GM TABLET. PO SCH ×4 (09:34→21:43)
[2021-06-05] MEDS: VANCOMYCIN 1 GM in IV NORMAL SALINE 250ML 250 ML IV SCH ×2 (10:00→21:43)
--- NOTE | 2021-06-05 10:34 | RAD ---
XR SHOULDER_RIGHT 2+ VIEWS Clinical Indication: Reason: R proximal humerus fx, please get Grashey and axillary lateral, LROM / S pl. Instructions: / History: Comparison: Right shoulder, AP view June 04, 2021. Findings: Redemonstrated acute traumatic fracture of the proximal humerus. The fracture involves the greater tu berosity. There is overriding of fracture fragments. The glenohumeral articulation is abnormal. There is mild AC arthropathy. There are interstitial opacities of the right lung, mildly improved. Questio n tiny fracture of the coracoid. IMPRESSION: 1. Acute traumatic fracture of the proximal humerus. 2. Glenohumeral articulation is abnormal. 3. Right lung interstitial opacities, mildly improved. Electronically signed by: Puma Valerio MD (06/05/2021 10:31 AM) [id number]
[2021-06-05 11:00] VITALS: BP 131/74
--- NOTE | 2021-06-05 12:07 | PDOC ---
[facility] PROGRESS NOTE Date of Service DOS: DATE: 06/05/21 TIME: 12:06 Chief Complaint Chief Complaint Seizure activity Alcohol withdrawal Cocaine abuse Probable aspiration pneumonia Leukocytosis JOSE History of Present Illness History of Present Illness 06/05/2021 Patient seen and examined She is a little more alert but intermittently confused Discussed with RN Discussed with case management Chart reviewed She is still on IV Keppra and IV antibiotics 06/04/2021 Patient seen and examined Discussed with RN Chart reviewed Patient is still pleasantly confused Cannot talk Does not know what year it is On IV banana bag Has IV antibiotics hanging 06/04/2019 Patient seen and examined She is extremely groggy but did open her eyes trying to mumble a word or 2 Discussed with her RN Discussed with case management Chart reviewed Vitals/I&O Vitals/I&O: Vital Signs Date Time Temp Pulse Resp B/P (MAP) Pulse Ox O2 Delivery O2 Flow Rate FiO2 06/05/21 09:33 18 97 Nasal Cannula 2.0 06/05/21 07:00 98.8 100 135/76 (95) 98.8 I & O 06/04/21 06/04/21 06/05/21 15:00 23:00 07:00 Intake Total 100 ml 300 ml Output Total 500 ml 800 ml Balance -400 ml -500 ml Physical Exam General: No acute distress, Other (Intermittently confused but was able to tell me the year) Heart: Regular rate Lungs: Crackles Extremities: No clubbing Skin: No rashes Labs Labs: Laboratory Tests Test 06/04/21 21:30 06/05/21 06:55 Vancomycin Level Trough 16.5 mcg/mL (10.0-20.0) Vancomycin Last Dose Date [id number] Vancomycin Last Dose Time 1000 Sodium Level 140 mmol/L (136-145) Potassium Level 3.0 mmol/L (3.5-5.1) Chloride Level 106 mmol/L (98-107) Carbon Dioxide Level 23 mmol/L (21-32) Anion Gap 11 (6-14) Blood Urea Nitrogen 6 mg/dL (7-20) Creatinine 0.6 mg/dL (0.6-1.0) Estimated GFR (Cockcroft-Gault) 102.3 Glucose Level 108 mg/dL (70-99) Calcium Level 8.6 mg/dL (8.5-10.1) Assessment and Plan Assessmemt and Plan Problems Medical Problems: (1) Acute kidney injury Status: Acute (2) Alcohol withdrawal Status: Acute (3) Aspiration pneumonitis Status: Acute (4) Hypothermia Status: Acute (5) Lactic acidosis Status: Acute (6) Rhabdomyolysis Status: Acute (7) Seizure-like activity Status: Acute (8) Sepsis Status: Acute Seizure activity Alcohol withdrawal Cocaine abuse Probable aspiration pneumonia Leukocytosis JOSE Plan IV Keppra Seizure precautions IV Zosyn Banana bag Seizure precautions As needed Ativan IV fluids Home meds DVT prophylaxis Full code Trend labs Hope to change to p.o. antibiotics and p.o. Keppra soon and discharge in a day or 2 Comment Review of Relevant I have reviewed the following items addison (where applicable) has been applied. Justifications for Admission Other Justification BONITA FRANK III DO Jun 05, 2021 12:07
--- NOTE | 2021-06-05 12:16 | PDOC ---
PROGRESS NOTES Date of Service DATE: 06/05/21 TIME: 12:14 Assessment Problems Medical Problems: (1) Acute kidney injury Status: Acute (2) Alcohol withdrawal Status: Acute (3) Aspiration pneumonitis Status: Acute (4) Hypothermia Status: Acute (5) Lactic acidosis Status: Acute (6) Rhabdomyolysis Status: Acute (7) Seizure-like activity Status: Acute (8) Sepsis Status: Acute Seizures related to alcohol, also has cocaine and benzodiazepines in her system, had opiates in her system last week. Toxic encephalopathy, improving Right proximal humerus fracture Plan Alcohol withdrawal protocol Levetiracetam, switch to oral Holding on electroencephalogram, MRI of the brain Subjective No complaints Objective Vital Signs Date Time Temp Pulse Resp B/P (MAP) Pulse Ox O2 Delivery O2 Flow Rate FiO2 06/05/21 09:33 18 97 Nasal Cannula 2.0 06/05/21 07:00 98.8 100 135/76 (95) 98.8 Intake and Output 06/05/21 07:00 Intake Total 400 ml Output Total 1300 ml Balance -900 ml Intake IV Total 400 ml Output Urine Total 1300 ml # Bowel Movements 2 PHYSICAL EXAM Alert, inappropriate jocularity, knows she is in the hospital, does not know date PERRL. EOMI. CN: no focal findings. Muscle tone: normal. Muscle strength: 4/5, right proximal humerus fracture noted DTR: 2+ Plantar reflex: Flexor Gait: not examined in bed. Sensory exam: no abnormal findings. No cerebellar signs elicited. Review of Relevant I have reviewed the following items addison (where applicable) has been applied. Labs Laboratory Tests Test 06/04/21 05:30 06/04/21 21:30 06/05/21 06:55 Sodium Level 136 mmol/L (136-145) 140 mmol/L (136-145) Potassium Level 3.6 mmol/L (3.5-5.1) 3.0 mmol/L (3.5-5.1) Chloride Level 102 mmol/L (98-107) 106 mmol/L (98-107) Carbon Dioxide Level 18 mmol/L (21-32) 23 mmol/L (21-32) Anion Gap 16 (6-14) 11 (6-14) Blood Urea Nitrogen 11 mg/dL (7-20) 6 mg/dL (7-20) Creatinine 0.8 mg/dL (0.6-1.0) 0.6 mg/dL (0.6-1.0) Estimated GFR (Cockcroft-Gault) 73.4 102.3 Glucose Level 54 mg/dL (70-99) 108 mg/dL (70-99) Calcium Level 8.7 mg/dL (8.5-10.1) 8.6 mg/dL (8.5-10.1) Vancomycin Level Trough 16.5 mcg/mL (10.0-20.0) Vancomycin Last Dose Date Vancomycin Last Dose Time 1000 Laboratory Tests Test 06/04/21 21:30 06/05/21 06:55 Vancomycin Level Trough 16.5 mcg/mL (10.0-20.0) Vancomycin Last Dose Date Vancomycin Last Dose Time 1000 Sodium Level 140 mmol/L (136-145) Potassium Level 3.0 mmol/L (3.5-5.1) Chloride Level 106 mmol/L (98-107) Carbon Dioxide Level 23 mmol/L (21-32) Anion Gap 11 (6-14) Blood Urea Nitrogen 6 mg/dL (7-20) Creatinine 0.6 mg/dL (0.6-1.0) Estimated GFR (Cockcroft-Gault) 102.3 Glucose Level 108 mg/dL (70-99) Calcium Level 8.6 mg/dL (8.5-10.1) Microbiology 06/02/21 Blood Culture - Preliminary, Resulted NO GROWTH AFTER 2 DAYS Medications Current Medications Sodium Chloride 1,000 ml @ 1,000 mls/hr 1X ONCE IV Last administered on 06/02/21at 11:35; Start 06/02/21 at 11:30; Stop 06/02/21 at 12:29; Status DC Sodium Chloride 1,000 ml @ 1,000 mls/hr 1X ONCE IV Last administered on at 11:35; Start 06/02/21 at 11:30; Stop 06/02/21 at 12:29; Status DC Naloxone HCl (Narcan) 0.4 mg 1X ONCE IV Last administered on 06/02/21at 12:09; Start 06/02/21 at 11:45; Stop 06/02/21 at 11:46; Status DC Piperacillin Sod/ Tazobactam Sod 3.375 gm/Sodium Chloride 50 ml @ 100 mls/hr 1X ONCE IV Last administered on 06/02/21at 12:47; Start 06/02/21 at 12:30; Stop 06/02/21 at 12:59; Status DC Ondansetron HCl (Zofran) 4 mg PRN Q8HRS PRN IVP NAUSEA/VOMITING; Start 06/02/21 at 15:00; Stop 06/03/21 at 14:59; Status DC Dextrose/Sodium Chloride 1,000 ml @ 125 mls/hr 1X ONCE IV Last administered on 06/02/21at 16:20; Start 06/02/21 at 16:00; Stop 06/03/21 at 00:00; Status DC Multivitamins 10 ml/Thiamine HCl 100 mg/Folic Acid 1 mg/Sodium Chloride 1,011.2 ml @ 100 mls/ hr DAILY IV Last administered on 06/05/21at 09:33; Start 06/02/21 at 15:30; Stop 06/06/21 at 19:07 Folic Acid (Folic Acid) 1 mg DAILY PO ; Start 06/07/21 at 09:00 Thiamine Mononitrate (Vitamin B-1) 100 mg DAILY PO ; Start 06/07/21 at 09:00 Lorazepam (Ativan Inj) 2 mg PRN Q1HR PRN IV For CIWA 8-14 Last administered on 06/04/21at 04:30; Start 06/02/21 at 15:00 Lorazepam (Ativan Inj) 4 mg PRN Q1HR PRN IV For CIWA 15 or greater; Start 06/02/21 at 15:00 Lorazepam (Ativan Inj) 2 mg PRN Q15MIN PRN IV SEE COMMENTS; Start 06/02/21 at 15:00; Stop 06/04/21 at 12:12; Status DC Lorazepam (Ativan Inj) 4 mg PRN Q15MIN PRN IV SEE COMMENTS; Start 06/02/21 at 15:00; Stop 06/04/21 at 12:12; Status DC Sodium Chloride 1,000 ml @ 100 mls/hr 1X ONCE IV Last administered on at 21:30; Start 06/02/21 at 16:00; Stop 06/03/21 at 01:59; Status DC Ampicillin Sodium/ Sulbactam Sodium 3 gm/Dextrose 100 ml @ 200 mls/hr Q6HRS IV Last administered on 06/02/21at 21:31; Start 06/02/21 at 18:00; Stop 06/03/21 at 00:22; Status DC Multivitamins 10 ml/Thiamine HCl 100 mg/Folic Acid 1 mg/Sodium Chloride 1,011.2 ml @ 100 mls/ hr DAILY IV ; Start 06/03/21 at 09:00; Stop 06/07/21 at 19:07; Status UNV Multivitamins (Thera M Plus) 1 tab DAILY PO ; Start 06/07/21 at 09:00; Status UNV Folic Acid (Folic Acid) 1 mg DAILY PO ; Start 06/07/21 at 09:00; Status UNV Thiamine Mononitrate (Vitamin B-1) 100 mg DAILY PO ; Start 06/07/21 at 09:00; Status UNV Lorazepam (Ativan Inj) 2 mg PRN Q1HR PRN IV For CIWA 8-14; Start 06/02/21 at 16:00; Status UNV Lorazepam (Ativan Inj) 4 mg PRN Q1HR PRN IV For CIWA 15 or greater; Start 06/02/21 at 16:00; Status UNV Levetiracetam 100 ml @ 400 mls/hr Q12HR IV Last administered on 06/05/21at 09:33; Start 06/02/21 at 21:00 Morphine Sulfate (Morphine Sulfate) 2 mg PRN Q2HR PRN IVP PAIN Last administered on 06/05/21at 09:33; Start 06/02/21 at 23:30 Piperacillin Sod/ Tazobactam Sod (Zosyn Per Pharmacy) 1 each PRN DAILY PRN MC SEE COMMENTS; Start 06/03/21 at 00:15 Sucralfate (Carafate) 1 gm QIDPMEDS PO Last administered on 06/05/21at 09:34; Start 06/03/21 at 10:00 Piperacillin Sod/ Tazobactam Sod 3.375 gm/Sodium Chloride 50 ml @ 100 mls/hr Q6HRS IV Last administered on 06/05/21at 06:20; Start 06/03/21 at 01:00 Vancomycin HCl (Vanco Per Pharmacy) 1 each PRN DAILY PRN MC SEE COMMENTS Last administered on 06/04/21at 22:28; Start 06/03/21 at 09:15 Vancomycin HCl 1.75 gm/Sodium Chloride 500 ml @ 250 mls/hr 1X ONCE IV Last administered on 06/03/21at 10:20; Start 06/03/21 at 09:30; Stop 06/03/21 at 11:29; Status DC Piperacillin Sod/ Tazobactam Sod (Zosyn Per Pharmacy) 1 each PRN DAILY PRN MC SEE COMMENTS; Start 06/03/21 at 11:15; Status UNV Vancomycin HCl 1 gm/Sodium Chloride 250 ml @ 250 mls/hr Q12H IV Last administered on 06/05/21at 10:00; Start 06/03/21 at 22:00 Vancomycin HCl (Vancomycin Trough Level) 1 each 1X ONCE MC ; Start 06/04/21 at 21:30; Stop 06/04/21 at 21:31; Status DC Active Scripts Active Reported Sucralfate 1 Gm Tablet 1 Tab PO QID Cyclobenzaprine Hcl 10 Mg Tablet 1 Tab PO TID Gabapentin (Gabapentin) 300 Mg Capsule 300 Mg PO TID Lunesta (Eszopiclone) 3 Mg Tablet 1 Tab PO PRN QHS PRN MDD 1 Tablet(s) 30 Days Vitals/I & O Vital Sign - Last 24 Hours 06/04/21 06/04/21 06/04/21 06/04/21 14:21 14:51 15:00 19:00 Temp 98.4 99.0 98.4 99.0 Pulse 108 116 Resp 20 20 16 18 B/P (MAP) 144/83 (103) 149/81 (103) Pulse Ox 98 94 94 91 O2 Delivery Room Air Room Air Nasal Cannula O2 Flow Rate 2.0 06/04/21 06/04/21 06/05/21 06/05/21 20:00 23:08 00:38 03:44 Temp 98.7 98.1 98.7 98.1 Pulse 102 103 Resp 18 20 18 B/P (MAP) 144/83 (103) 159/91 (113) Pulse Ox 96 97 O2 Delivery Nasal Cannula Nasal Cannula Room Air Nasal Cannula O2 Flow Rate 2.0 2.0 2.0 06/05/21 06/05/21 07:00 09:33 Temp 98.8 98.8 Pulse 100 Resp 18 18 B/P (MAP) 135/76 (95) Pulse Ox 97 O2 Delivery Nasal Cannula Nasal Cannula O2 Flow Rate 2.0 2.0 Intake and Output 06/04/21 06/04/21 06/05/21 15:00 23:00 07:00 Intake Total 100 ml 300 ml Output Total 500 ml 800 ml Balance -400 ml -500 ml Justicifation of Admission Dx: Justifications for Admission: Justification of Admission Dx: Yes LISA BLOCK MD Jun 05, 2021 12:16
[2021-06-05] MEDS ORDERED: LIDO:MAALOX:BENADRYL 1:1:1 180 ML BOTTLE. PO PRN (12:45)
[2021-06-05 15:00] VITALS: BP 141/80
--- NOTE | 2021-06-05 15:06 | NUR ---
SS following up with discharge planning. SS reviewed pt chart and discussed with pt RN. Pt is currently on room air. COVID19 negative. PO diet. Pt on IV Zosyn and IV Vancomycin. PT/OT recommended jail unit. Self pay. Med Assist following. Pt has no benefits for jail unit at this time. SS will continue to follow for discharge planning.
--- NOTE | 2021-06-05 15:08 | RAD ---
STUDY: CT of the right upper extremity without contrast INDICATION: Proximal humerus fracture on the right. COMPARISON: Same day radiographs. TECHNIQUE: Axial CT imaging of the right upper extremity/shoulder performed without contrast. Coronal and sagittal reformats were obtained. One or more of the following individualized dose reduction techniques were utilized for this examinat ion: 1. Automated exposure control 2. Adjustment of the mA and/or kV according to patient size 3. Use of iterative reconstruction technique. FINDINGS: Severely comminuted proximal right humerus fracture with involvement of both tuberosities, the anatom ic neck and surgical neck. The humeral shaft is displaced anteriorly and with cephalad migration. The surgical neck of the humerus is approximately 1 cm above the lower lip of the glenoid, image 52 seri es 4. The humeral head is rotated and disarticulated from the glenoid in the posterior direction and approximately 2.5 cm posterior to the humerus, image 82 series 5. Hemorrhagic shoulder joint effusion. Soft tissue sequela trauma around the shoulder joint. No large a xillary hematoma. No malalignment across the AC joint. The visualized right ribs are intact. Trace bony irregularity at the inferior glenoid may be chronic. Right lung airspace opacities and atelectasis. IMPRESSION: 1. Severely comminuted proximal right humerus fracture with involvement of both tuberosities as well as the surgical and anatomic necks. The humeral shaft exhibits anterior displacement and cephalad mi gration with the surgical neck approximately a centimeter above the lower lip of the glenoid. The hum eral head is rotated and disarticulated with the glenoid in the posterior direction. Trace bony irreg ularity at the lower lip of the glenoid but possibly chronic. 2. Edema/hemorrhage related to trauma around the right shoulder and a hemorrhagic joint effusion. No large hematoma with mass effect on the axillary neurovascular bundle. 3. Dependent atelectasis on the right. There are also airspace infiltrates which could be infectious or inflammatory in etiology. Electronically signed by: RENATO LAWLER MD (06/05/2021 3:06 PM) [facility] [place]
--- NOTE | 2021-06-05 15:20 | PDOC ---
PROGRESS NOTES Date of Service DATE: 06/05/21 TIME: 14:55 Subjective Subjective Problems overnight: Objective Vital Signs Vital Signs Date Time Temp Pulse Resp B/P (MAP) Pulse Ox O2 Delivery O2 Flow Rate FiO2 06/05/21 12:26 18 97 Room Air 06/05/21 11:00 98.1 97 131/74 (93) 2.0 98.1 Labs Laboratory Tests Test 06/04/21 05:30 06/04/21 21:30 06/05/21 06:55 Sodium Level 136 mmol/L (136-145) 140 mmol/L (136-145) Potassium Level 3.6 mmol/L (3.5-5.1) 3.0 mmol/L (3.5-5.1) Chloride Level 102 mmol/L (98-107) 106 mmol/L (98-107) Carbon Dioxide Level 18 mmol/L (21-32) 23 mmol/L (21-32) Anion Gap 16 (6-14) 11 (6-14) Blood Urea Nitrogen 11 mg/dL (7-20) 6 mg/dL (7-20) Creatinine 0.8 mg/dL (0.6-1.0) 0.6 mg/dL (0.6-1.0) Estimated GFR (Cockcroft-Gault) 73.4 102.3 Glucose Level 54 mg/dL (70-99) 108 mg/dL (70-99) Calcium Level 8.7 mg/dL (8.5-10.1) 8.6 mg/dL (8.5-10.1) Vancomycin Level Trough 16.5 mcg/mL (10.0-20.0) Vancomycin Last Dose Date Vancomycin Last Dose Time 1000 Laboratory Tests Test 06/04/21 21:30 06/05/21 06:55 Vancomycin Level Trough 16.5 mcg/mL (10.0-20.0) Vancomycin Last Dose Date Vancomycin Last Dose Time 1000 Sodium Level 140 mmol/L (136-145) Potassium Level 3.0 mmol/L (3.5-5.1) Chloride Level 106 mmol/L (98-107) Carbon Dioxide Level 23 mmol/L (21-32) Anion Gap 11 (6-14) Blood Urea Nitrogen 6 mg/dL (7-20) Creatinine 0.6 mg/dL (0.6-1.0) Estimated GFR (Cockcroft-Gault) 102.3 Glucose Level 108 mg/dL (70-99) Calcium Level 8.6 mg/dL (8.5-10.1) Assessment Assessment POD# Plan Plan of Care Reviewed the x-rays that we ordered this morning. We were unable to see if the GH joint was reduced so a CT was ordered to evaluate. CT shows a fracture of the proximal humerus with a posterior dislocation of the humeral head. Patient's chart was reviewed in more detail and reveals cocaine, benzos and opiates in her system upon her admission as well. Given her overall picture and the fact that we don't have a solid date for how old this is, we will not attempt a closed reduction, even if the head has been our just since her adm ission, CR attempt would most likely be unsuccessful. Taking her to surgery to reduce the head is a possibility but could also be unsuccessful in this time frame. Reverse total shoulder may be an option for this patient but that would have to be approached with much caution and she may not be a candidate for that procedure and would not be done on this hospital admission. Plan to be in the sling and follow up in our office after discharge for consideration of treatments on her shoulder. Continue NWB. Please call our office to schedule patient with Dr. Sullivan [phone] Manzano. Justicifation of Admission Dx: Justifications for Admission: Justification of Admission Dx: Yes ROGELIO ANDUJAR Jun 05, 2021 15:20
[2021-06-05] MEDS ORDERED: POTASSIUM CHLORIDE 20 MEQ TABLET.ER. PO ONE (18:00)
[2021-06-05 19:00] VITALS: BP 151/99
[2021-06-05] MEDS: levETIRAcetam 500 MG TABLET PO SCH (21:42)
[2021-06-05 23:39] VITALS: BP 149/86
[2021-06-06] MEDS: PIPERACILLIN/TAZOBACTAM 3.375 GM in IV NORMAL SALINE 50ML 50 ML IV SCH ×2 (00:20→06:18)
[2021-06-06 07:00] VITALS: BP 154/84
[2021-06-06] MEDS: MORPHINE SULFATE 2 MG/ML INJ. IVP PRN (08:53)
[2021-06-06] MEDS: MULTIVIT INFUSN,ADULT 4,VIT K 10 ML, THIAMINE INJ 100 MG, FOLIC ACID INJ 1 MG in IV NOR... IV SCH (08:54)
[2021-06-06] MEDS: levETIRAcetam 500 MG TABLET PO SCH (08:54)
[2021-06-06] MEDS: SUCRALFATE 1 GM TABLET. PO SCH (08:54)
--- NOTE | 2021-06-06 09:06 | PDOC ---
PROGRESS NOTES Date of Service DATE: 06/06/21 TIME: 09:04 Assessment Problems Medical Problems: (1) Acute kidney injury Status: Acute (2) Alcohol withdrawal Status: Acute (3) Aspiration pneumonitis Status: Acute (4) Hypothermia Status: Acute (5) Lactic acidosis Status: Acute (6) Rhabdomyolysis Status: Acute (7) Seizure-like activity Status: Acute (8) Sepsis Status: Acute Seizures related to alcohol, also has cocaine and benzodiazepines in her system, had opiates in her system last week. Toxic encephalopathy, improving Right proximal humerus fracture Plan Alcohol withdrawal protocol Levetiracetam, switch to oral. Continue 3-6 months, taper off over 1 month Holding on electroencephalogram, MRI of the brain She requests some durable medical equipment at home Follow-up with me as needed Okay for discharge Discussed with Dr. García Subjective Has arm and back pain Objective Vital Signs Date Time Temp Pulse Resp B/P (MAP) Pulse Ox O2 Delivery O2 Flow Rate FiO2 06/06/21 08:53 18 95 Room Air 06/05/21 23:39 97.8 109 149/86 (107) 2.0 97.8 Intake and Output 06/06/21 07:00 Intake Total 480 ml Output Total 850 ml Balance -370 ml Intake Oral 480 ml Output Urine Total 850 ml PHYSICAL EXAM Alert, knows she is in the hospital, does not know date PERRL. EOMI. CN: no focal findings. Muscle tone: normal. Muscle strength: 4/5, right proximal humerus fracture noted DTR: 2+ Plantar reflex: Flexor Gait: not examined in bed. Sensory exam: no abnormal findings. No cerebellar signs elicited. Review of Relevant I have reviewed the following items addison (where applicable) has been applied. Labs Laboratory Tests Test 06/04/21 21:30 06/05/21 06:55 Vancomycin Level Trough 16.5 mcg/mL (10.0-20.0) Vancomycin Last Dose Date [id number] Vancomycin Last Dose Time 1000 Sodium Level 140 mmol/L (136-145) Potassium Level 3.0 mmol/L (3.5-5.1) Chloride Level 106 mmol/L (98-107) Carbon Dioxide Level 23 mmol/L (21-32) Anion Gap 11 (6-14) Blood Urea Nitrogen 6 mg/dL (7-20) Creatinine 0.6 mg/dL (0.6-1.0) Estimated GFR (Cockcroft-Gault) 102.3 Glucose Level 108 mg/dL (70-99) Calcium Level 8.6 mg/dL (8.5-10.1) Microbiology 06/02/21 Blood Culture - Preliminary, Resulted NO GROWTH AFTER 3 DAYS Medications Current Medications Sodium Chloride 1,000 ml @ 1,000 mls/hr 1X ONCE IV Last administered on 06/02/21at 11:35; Start 06/02/21 at 11:30; Stop 06/02/21 at 12:29; Status DC Sodium Chloride 1,000 ml @ 1,000 mls/hr 1X ONCE IV Last administered on 06/02/21at 11:35; Start 06/02/21 at 11:30; Stop 06/02/21 at 12:29; Status DC Naloxone HCl (Narcan) 0.4 mg 1X ONCE IV Last administered on 06/02/21at 12:09; Start 06/02/21 at 11:45; Stop 06/02/21 at 11:46; Status DC Piperacillin Sod/ Tazobactam Sod 3.375 gm/Sodium Chloride 50 ml @ 100 mls/hr 1X ONCE IV Last administered on 06/02/21at 12:47; Start 06/02/21 at 12:30; Stop 06/02/21 at 12:59; Status DC Ondansetron HCl (Zofran) 4 mg PRN Q8HRS PRN IVP NAUSEA/VOMITING; Start 06/02/21 at 15:00; Stop 06/03/21 at 14:59; Status DC Dextrose/Sodium Chloride 1,000 ml @ 125 mls/hr 1X ONCE IV Last administered on 06/02/21at 16:20; Start 06/02/21 at 16:00; Stop 06/03/21 at 00:00; Status DC Multivitamins 10 ml/Thiamine HCl 100 mg/Folic Acid 1 mg/Sodium Chloride 1,011.2 ml @ 100 mls/ hr DAILY IV Last administered on 06/06/21at 08:54; Start 06/02/21 at 15:30; Stop 06/06/21 at 19:07 Folic Acid (Folic Acid) 1 mg DAILY PO ; Start 06/07/21 at 09:00 Thiamine Mononitrate (Vitamin B-1) 100 mg DAILY PO ; Start 06/07/21 at 09:00 Lorazepam (Ativan Inj) 2 mg PRN Q1HR PRN IV For CIWA 8-14 Last administered on 06/05/21at 21:44; Start 06/02/21 at 15:00 Lorazepam (Ativan Inj) 4 mg PRN Q1HR PRN IV For CIWA 15 or greater; Start 06/02/21 at 15:00 Lorazepam (Ativan Inj) 2 mg PRN Q15MIN PRN IV SEE COMMENTS; Start 06/02/21 at 15:00; Stop 06/04/21 at 12:12; Status DC Lorazepam (Ativan Inj) 4 mg PRN Q15MIN PRN IV SEE COMMENTS; Start 06/02/21 at 15:00; Stop 06/04/21 at 12:12; Status DC Sodium Chloride 1,000 ml @ 100 mls/hr 1X ONCE IV Last administered on 06/02/21at 21:30; Start 06/02/21 at 16:00; Stop 06/03/21 at 01:59; Status DC Ampicillin Sodium/ Sulbactam Sodium 3 gm/Dextrose 100 ml @ 200 mls/hr Q6HRS IV Last administered on 06/02/21at 21:31; Start 06/02/21 at 18:00; Stop 06/03/21 at 00:22; Status DC Multivitamins 10 ml/Thiamine HCl 100 mg/Folic Acid 1 mg/Sodium Chloride 1,011.2 ml @ 100 mls/ hr DAILY IV ; Start 06/03/21 at 09:00; Stop 06/07/21 at 19:07; Status UNV Multivitamins (Thera M Plus) 1 tab DAILY PO ; Start 06/07/21 at 09:00; Status UNV Folic Acid (Folic Acid) 1 mg DAILY PO ; Start 06/07/21 at 09:00; Status UNV Thiamine Mononitrate (Vitamin B-1) 100 mg DAILY PO ; Start 06/07/21 at 09:00; Status UNV Lorazepam (Ativan Inj) 2 mg PRN Q1HR PRN IV For CIWA 8-14; Start 06/02/21 at 16:00; Status UNV Lorazepam (Ativan Inj) 4 mg PRN Q1HR PRN IV For CIWA 15 or greater; Start 06/02/21 at 16:00; Status UNV Levetiracetam 100 ml @ 400 mls/hr Q12HR IV Last administered on 06/05/21at 09:33; Start 06/02/21 at 21:00; Stop 06/05/21 at 12:17; Status DC Morphine Sulfate (Morphine Sulfate) 2 mg PRN Q2HR PRN IVP PAIN Last administered on 06/06/21at 08:53; Start 06/02/21 at 23:30 Piperacillin Sod/ Tazobactam Sod (Zosyn Per Pharmacy) 1 each PRN DAILY PRN MC SEE COMMENTS; Start 06/03/21 at 00:15 Sucralfate (Carafate) 1 gm QIDPMEDS PO Last administered on 06/06/21at 08:54; Start 06/03/21 at 10:00 Piperacillin Sod/ Tazobactam Sod 3.375 gm/Sodium Chloride 50 ml @ 100 mls/hr Q6HRS IV Last administered on 06/06/21at 06:18; Start 06/03/21 at 01:00 Vancomycin HCl (Vanco Per Pharmacy) 1 each PRN DAILY PRN MC SEE COMMENTS Last administered on 06/04/21at 22:28; Start 06/03/21 at 09:15 Vancomycin HCl 1.75 gm/Sodium Chloride 500 ml @ 250 mls/hr 1X ONCE IV Last administered on 06/03/21at 10:20; Start 06/03/21 at 09:30; Stop 06/03/21 at 11:29; Status DC Piperacillin Sod/ Tazobactam Sod (Zosyn Per Pharmacy) 1 each PRN DAILY PRN MC SEE COMMENTS; Start 06/03/21 at 11:15; Status UNV Vancomycin HCl 1 gm/Sodium Chloride 250 ml @ 250 mls/hr Q12H IV Last administered on 06/05/21at 21:43; Start 06/03/21 at 22:00 Vancomycin HCl (Vancomycin Trough Level) 1 each 1X ONCE MC ; Start 06/04/21 at 21:30; Stop 06/04/21 at 21:31; Status DC Levetiracetam (Keppra) 500 mg BID PO Last administered on 06/06/21at 08:54; Start 06/05/21 at 21:00 Multi-Ingredient Mouthwash/Gargle (Magic Mouthwash) 10 ml PRN QID PRN PO MOUTH PAIN Last administered on 06/05/21at 14:39; Start 06/05/21 at 12:45 Potassium Chloride (Klor-Con) 40 meq 1X ONCE PO Last administered on 06/05/21at 18:09; Start 06/05/21 at 18:00; Stop 06/05/21 at 18:01; Status DC Active Scripts Active Reported Sucralfate 1 Gm Tablet 1 Tab PO QID Cyclobenzaprine Hcl 10 Mg Tablet 1 Tab PO TID Gabapentin (Gabapentin) 300 Mg Capsule 300 Mg PO TID Lunesta (Eszopiclone) 3 Mg Tablet 1 Tab PO PRN QHS PRN MDD 1 Tablet(s) 30 Days Vitals/I & O Vital Sign - Last 24 Hours 06/05/21 06/05/21 06/05/21 06/05/21 09:33 10:03 11:00 12:26 Temp 98.1 98.1 Pulse 97 Resp 18 19 17 18 B/P (MAP) 131/74 (93) Pulse Ox 97 97 97 97 O2 Delivery Nasal Cannula Nasal Cannula Nasal Cannula Room Air O2 Flow Rate 2.0 2.0 2.0 06/05/21 06/05/21 06/05/21 06/05/21 13:00 15:00 19:00 20:00 Temp 98.4 98.0 98.4 98.0 Pulse 93 114 Resp 17 13 18 B/P (MAP) 141/80 (100) 151/99 (116) Pulse Ox 97 97 95 O2 Delivery Room Air Nasal Cannula Nasal Cannula Nasal Cannula O2 Flow Rate 2.0 2.0 2.0 06/05/21 06/06/21 23:39 08:53 Temp 97.8 97.8 Pulse 109 Resp 18 18 B/P (MAP) 149/86 (107) Pulse Ox 95 95 O2 Delivery Nasal Cannula Room Air O2 Flow Rate 2.0 Intake and Output 06/05/21 06/05/21 06/06/21 15:00 23:00 07:00 Intake Total 360 ml 60 ml 60 ml Output Total 850 ml Balance 360 ml 60 ml -790 ml Justicifation of Admission Dx: Justifications for Admission: Justification of Admission Dx: Yes LISA BLOCK MD Jun 06, 2021 09:06
[2021-06-06] MEDS: VANCOMYCIN 1 GM in IV NORMAL SALINE 250ML 250 ML IV SCH (10:42)
[2021-06-06 11:00] VITALS: BP 148/88
--- NOTE | 2021-06-06 11:40 | PDOC ---
[facility] [facility] PROGRESS NOTE Date of Service DOS: DATE: 06/06/21 TIME: 11:34 Chief Complaint Chief Complaint Seizure activity Alcohol withdrawal Cocaine abuse Probable aspiration pneumonia Leukocytosis JOSE History of Present Illness History of Present Illness 06/06/2021: Patient seen and examined. No seizure-like activity overnight. He is resting comfortably in bed with sling in place. Will discharge patient on Keppra twice daily for the next 3 months, followed by a slow taper over 1 month period. She will follow up with Dr. Kelley an outpatient in this regard. Greater than 30 minutes was spent managing discharge of this patient. 06/05/2021 Patient seen and examined She is a little more alert but intermittently confused Discussed with RN Discussed with case management Chart reviewed She is still on IV Keppra and IV antibiotics 06/04/2021 Patient seen and examined Discussed with RN Chart reviewed Patient is still pleasantly confused Cannot talk Does not know what year it is On IV banana bag Has IV antibiotics hanging 06/04/2019 Patient seen and examined She is extremely groggy but did open her eyes trying to mumble a word or 2 Discussed with her RN Discussed with case management Chart reviewed Vitals/I&O Vitals/I&O: Vital Signs Date Time Temp Pulse Resp B/P (MAP) Pulse Ox O2 Delivery O2 Flow Rate FiO2 06/06/21 11:00 99.4 105 16 148/88 (108) 97 Nasal Cannula 2.0 99.4 I & O 06/05/21 06/05/21 06/06/21 15:00 23:00 07:00 Intake Total 360 ml 60 ml 60 ml Output Total 850 ml Balance 360 ml 60 ml -790 ml Physical Exam General: Alert, Cooperative, No acute distress, Other Heart: Regular rate Lungs: Clear Abdomen: Soft Extremities: No clubbing Skin: No rashes Assessment and Plan Assessmemt and Plan Problems Medical Problems: (1) Acute kidney injury Status: Acute (2) Alcohol withdrawal Status: Acute (3) Aspiration pneumonitis Status: Acute (4) Hypothermia Status: Acute (5) Lactic acidosis Status: Acute (6) Rhabdomyolysis Status: Acute (7) Seizure-like activity Status: Acute (8) Sepsis Status: Acute Comment Review of Relevant I have reviewed the following items addison (where applicable) has been applied. Medications: Current Medications Medications (Trade) Dose Ordered Sig/Rony Route PRN Reason Start Time Stop Time Status Last Admin Dose Admin Levetiracetam (Keppra) 500 mg BID PO 06/05/21 21:00 06/06/21 08:54 Multi-Ingredient Mouthwash/Gargle (Magic Mouthwash) 10 ml PRN QID PRN PO MOUTH PAIN 06/05/21 12:45 06/05/21 14:39 Potassium Chloride (Klor-Con) 40 meq 1X ONCE PO 06/05/21 18:00 06/05/21 18:01 DC 06/05/21 18:09 Justifications for Admission Other Justification BRENNA COTA MD Jun 06, 2021 11:40
--- NOTE | 2021-06-06 11:46 | PDOC3 ---
Discharge Summary Visit Information Date of Admission: Jun 03, 2021 Date of Discharge: Jun 06, 2021 Final Diagnosis Problems Medical Problems: (1) Acute kidney injury Status: Acute (2) Alcohol withdrawal Status: Acute (3) Aspiration pneumonitis Status: Acute (4) Hypothermia Status: Acute (5) Lactic acidosis Status: Acute (6) Rhabdomyolysis Status: Acute (7) Seizure-like activity Status: Acute (8) Sepsis Status: Acute Brief Hospital Course Allergies Allergies Coded Allergies Type Severity Reaction Last Updated Verified No Known Drug Allergies 05/25/21 No Vital Signs Vital Signs Date Time Temp Pulse Resp B/P (MAP) Pulse Ox O2 Delivery O2 Flow Rate FiO2 06/06/21 11:00 99.4 105 16 148/88 (108) 97 Nasal Cannula 2.0 99.4 Lab Results Laboratory Tests Test 06/04/21 21:30 06/05/21 06:55 Vancomycin Level Trough 16.5 mcg/mL (10.0-20.0) Vancomycin Last Dose Date [id number] Vancomycin Last Dose Time 1000 Sodium Level 140 mmol/L (136-145) Potassium Level 3.0 mmol/L (3.5-5.1) Chloride Level 106 mmol/L (98-107) Carbon Dioxide Level 23 mmol/L (21-32) Anion Gap 11 (6-14) Blood Urea Nitrogen 6 mg/dL (7-20) Creatinine 0.6 mg/dL (0.6-1.0) Estimated GFR (Cockcroft-Gault) 102.3 Glucose Level 108 mg/dL (70-99) Calcium Level 8.6 mg/dL (8.5-10.1) Brief Hospital Course Ms. Simpson is a 60 old female who presented with seizure, alcohol withdrawal, cocaine abuse, comminuted right humeral fracture, possible aspiration pneumonia. Consults were placed to neurology. History of Present Illness 06/06/2021: Patient seen and examined. No seizure-like activity overnight. He is resting comfortably in bed with sling in place. Will discharge patient on Keppra twice daily for the next 3 months, followed by a slow taper over 1 month period. She will follow up with Dr. Kelley an outpatient in this regard. Greater than 30 minutes was spent managing discharge of this patient. 06/05/2021 Patient seen and examined She is a little more alert but intermittently confused Discussed with RN Discussed with case management Chart reviewed She is still on IV Keppra and IV antibiotics 06/04/2021 Patient seen and examined Discussed with RN Chart reviewed Patient is still pleasantly confused Cannot talk Does not know what year it is On IV banana bag Has IV antibiotics hanging 06/04/2019 Patient seen and examined She is extremely groggy but did open her eyes trying to mumble a word or 2 Discussed with her RN Discussed with case management Chart reviewed Discharge Information Condition at Discharge: Improved Follow Up: Weeks Disposition/Orders: D/C to Home Scheduled Cyclobenzaprine Hcl (Cyclobenzaprine Hcl) 10 Mg Tablet, 1 TAB PO TID for muscle relaxer, #90 (Reported) Entered as Reported by: YEMI HAWKINS on 05/26/211830 Last Action: HELD on 06/03/2113 by STEPH DEGROOT MD Gabapentin (Gabapentin ) 300 Mg Capsule, 300 MG PO TID for NEUROGENIC PAIN, (Reported) Entered as Reported by: YEMI HAWKINS on 05/26/211830 Sucralfate (Sucralfate) 1 Gm Tablet, 1 TAB PO QID for GERD, #120 Ref 3 (Reported) Entered as Reported by: YEMI HAWKINS on 05/26/211830 Last Action: Continued on 06/03/2113 by STEPH DEGROOT MD Scheduled PRN Eszopiclone (Lunesta) 3 Mg Tablet, 1 TAB PO PRN QHS PRN for sleep MDD 1 Tablet(s) for 30 Days, #30 Ref 0 (Reported) Entered as Reported by: YEMI HAWKINS on 05/26/211830 Last Action: HELD on 06/03/2113 by STEPH DEGROOT MD Justicifation of Admission Dx: Justifications for Admission: Justification of Admission Dx: Yes BRENNA COTA MD Jun 06, 2021 11:46
[2021-06-06] MEDS ORDERED: LEVE500T56 PO (11:50)
--- NOTE | 2021-06-06 13:05 | NUR ---
SS following up with discharge planning. SS reviewed pt chart and discussed with pt RN. Pt is currently on room air. COVID19 negative. Self pay. Med Assist following. Discharge order on the chart for home with self care.
[2021-06-06] MEDS ORDERED: POTASSIUM CHLORIDE 20 MEQ TABLET.ER. PO ONE (15:30)
--- NOTE | 2021-06-06 16:59 | NUR ---
Discharge Note: NICOLE COLLINS Discharge instructions and discharge home medications reviewed with the patient and a copy given. All questions have been answered and understanding verbalized. The following instructions and handouts were given: Home meds as directed Keppra BID Wear sling to immobilize right arm Follow up with the Orthopedic surgeon regarding further management of right humeral fracture; clinic phone number given to the patient. Follow up with Dr. Kelley as needed, clinic phone number given to the patient, discussed plan of dose titration. Discontinued lines and drains: peripheral IV intact, co complications Patient discharged to home via wheelchair on RA accompanied by the patient's daughter and spouse at 1542. Dr. García also spoke to the pt's daughter regarding resources to adress substance use disorder.
[2021-06-07] MEDS ORDERED: FOLIC ACID 1 MG TABLET. PO SCH ×2 (09:00)
[2021-06-07] MEDS ORDERED: THIAMINE 100 MG TABLET. PO SCH ×2 (09:00)
[2021-06-07] MEDS ORDERED: MULTIVITAMIN with MINERAL TABLET. PO SCH (09:00)
== END 2021-06-06 15:45 | disposition home or self-care (01) | DRG 871 ==
LOC: ER 11:19 → ED HOLD 12:55 → 5 NORTH 15:46
PROVIDERS: ADMIT Student in an Organized Health Care Education/Training Program; ATTEND Student in an Organized Health Care Education/Training Program
DX: A41.9 Sepsis, unspecified organism (principal); J69.0 Pneumonitis due to inhalation of food and vomit; N17.0 Acute kidney failure with tubular necrosis; G92.9 Unspecified toxic encephalopathy; S42.351A Displaced comminuted fracture of shaft of humerus, right arm, initial encounter for closed fracture; S42.201A Unspecified fracture of upper end of right humerus, initial encounter for closed fracture; F10.239 Alcohol dependence with withdrawal, unspecified; M62.82 Rhabdomyolysis; N17.9 Acute kidney failure, unspecified; F14.10 Cocaine abuse, uncomplicated; F17.210 Nicotine dependence, cigarettes, uncomplicated; R09.02 Hypoxemia; R56.9 Unspecified convulsions; Z20.822 Contact with and (suspected) exposure to COVID-19; W18.39XA Other fall on same level, initial encounter; Y93.89 Activity, other specified; Y92.89 Other specified places as the place of occurrence of the external cause; Y99.8 Other external cause status
CPT/HCPCS: 36415; 36600; 70450; 71045; 73020; 73030; 73200; 80048; 80053; 80202; 80307; 81001; 82140; 82550; 82805; 82962; 83605; 83735; 84484; 85007; 85025; 87040; 87077; 87186; 87426; 93005; 96361; 96374; 96375; A4565; G0480; J0295; J2060; J2270; J2310; J2543; J3370; J3411; J3490; J7030; J7040; J7042; J7050; J7060; 92526-GN; 92610-GN; 97110-GP; 97116-GP; 97530-GO; 99285-25; G0378